=== PATIENT | male | born 1945 | race African-American/Black ===

== ENCOUNTER 2016-12-16 05:52 | Inpatient (IN) ==
[2016-12-16] MEDS ORDERED: ceFAZolin 2,000 MG in PREMIX 1 EACH IV ONE (06:00)
--- NOTE | 2016-12-16 07:08 | History and Physical Update ---
History and Physical Update - History and Physical H&P was reviewed, the patient examined and there: are no changes in the patients condition since last H&P was completed.
--- NOTE | 2016-12-16 07:15 | EKG Report ---
Stationary ECG Study [facility] Test Date: 12/16/2016 7:15:09 AM Pat Name: LJ MATHIAS Department: Room: 607 Gender: M Lemon Picker: AMARILIS : [phone] Requested by: Navid Carroll Order Number: [id number] Reading MD: BENJAMIN MAHAN Intervals [place] Rate: 94 P: 69 ID: [id number] QRS: 66 QRSD: 92 T: 91 QT: 332 QTc: 384 Interpretive Statements SINUS RHYTHM WITH SINUS ARRHYTHMIA DELAYED ANTERIOR R-WAVE PROGRESSION LATERAL T-WAVE ABNORMALITY POSSIBLE ISCHEMIA. Electronically Signed On 12-16-16 12:27:27 CDT by BENJAMIN MAHAN [email or web address]
--- NOTE | 2016-12-16 07:33 | XRay Report ---
XR chest 1V portable Indication: Respiratory preop Comparison: Chest x-ray dated May 07, 2015 Technique: Frontal views of the chest Findings: The cardiomediastinal silhouette is stable in configuration. Chronic change of the lungs without focal consolidation, pleural effusion, or pneumothorax. Visualized osseous and surrounding soft tissue structures appear grossly unchanged. IMPRESSION: No acute cardiopulmonary process demonstrated. PROCEDURE INTERPRETED AT [facility] DEPARTMENT OF RADIOLOGY Final Report Signed by: Dr Issac Hebert
[2016-12-16 07:51] LABS: Basophils % 0.1 % (0.0-0.8); Eosinophils # 0.3 10*3/uL (0.0-0.87); Eosinophils % 1.4 % (0.00-10.9); Hematocrit 22.8 VOL% (42.0-52.0); Hemoglobin 7.2 GM/DL (14.0-18.0); Immature Granulocytes Absolute 0.22 #; Lymphocytes # 1.8 10*3/uL (1.4-4.0); Lymphocytes % 8.6 % (21.2-54.2); Mean Corpuscular HGB Conc 31.6 GM/DL (32-36); Mean Corpuscular Hemoglobin 25 PG (27-34); Mean Corpuscular Volume 78.4 FL (87-102); Monocytes # 0.9 10*3/uL (0.11-0.8); Monocytes % 4.4 % (1.7-12.7); Neutrophils # 17.9 10*3/uL (1.4-7.4); Neutrophils % 84.5 % (38.7-73.9); Platelet Count 671 T/CUMM (130-400); Red Blood Count 2.91 MC/CUMM (3.8-5.5); Red Cell Distribution Width 20.2 % (9.3-17.3); White Blood Count 21.2 T/CUMM (4-12)
[2016-12-16 07:56] LABS: INR 1.1; PT Patient Result 11.4 SECS; Partial Thromboplastin Time 36.8 SECS (0-40)
[2016-12-16] MEDS ORDERED: LACTATED RINGERS 1,000 ML IV SCH (08:00)
[2016-12-16 08:08] LABS: Anisocytosis 1+; Band Neutrophils 3 % (0-10); Hypochromasia 2+; Lymphocytes 9 % (20-55); Microcytosis 1+; Segmented Neutrophils 85 % (50-85); Total Cells Counted 100
[2016-12-16 08:35] LABS: Alanine Aminotransferase < 6 U/L (16-61); Albumin 2.4 G/DL (3.4-5.0); Alkaline Phosphatase 81 U/L (45-117); Aspartate Amino Transferase 30 U/L (0-37); Blood Urea Nitrogen 98 MG/DL (7-18); Calcium 9.7 MG/DL (8.5-10.1); Glucose 87 MG/DL (74-106); Osmolality,Calculated 297.2 MOS/KG (273-304); Sodium 134 MMOL/L (136-145)
[2016-12-16 08:37] LABS: Potassium 6.4 MMOL/L (3.5-5.1)
[2016-12-16] MEDS ORDERED: ACETAMINOPHEN 325 MG TABLET PO PRN (09:33)
[2016-12-16] MEDS ORDERED: ONDANSETRON 4 MG/2 ML VIAL IV PRN (09:33)
[2016-12-16] MEDS ORDERED: SKIN HEALING OINT (AQUAPHOR) 50 GM TUBE TOP PRN (09:42)
[2016-12-16] MEDS ORDERED: CHLORHEXIDINE 4% SOLN 118 ML BOTTLE TOP ONE (09:42)
[2016-12-16] MEDS ORDERED: PIPERACILLIN/TAZOBACTAM 3,375 MG in SODIUM CHLORIDE 0.9% 100 ML IV SCH (10:00)
[2016-12-16] MEDS ORDERED: SODIUM POLYSTYRENE SULFATE 15 GM/60 ML BOTTLE PO SCH (10:00)
--- NOTE | 2016-12-16 11:27 | General Surg History&Physical ---
Assessment and Plan - Time spent with patient Time spent with patient: Greater than 30 minutes (1) Decubitus ulcer of left ischium, stage 4 Status: Acute Assessment and plan: Impression: Left ischial decubitus ulcer plan: Excisional debridement and wound care Current Visit: Yes (2) Decubitus ulcer of sacral region, unstageable Status: Acute Assessment and plan: Impression: Sacral decubitus ulcer unstageable Plan: Surgical debridement and wound care Current Visit: Yes (3) Renal insufficiency syndrome Status: Chronic Assessment and plan: Impression: Renal insufficiency Plan: Nephrology consult for management Current Visit: Yes (4) Hyperkalemia, diminished renal excretion Status: Acute Assessment and plan: Impression: Hyperkalemia probably secondary to renal insufficiency Plan: Nephrology to look and treat Current Visit: Yes (5) Paraplegia Status: Chronic Assessment and plan: Impression: Paraplegia etiology unclear Plan: Management preventive care Current Visit: Yes (6) Anemia Status: Acute Assessment and plan: Impression: Anemia of chronic disease Plan: We will transfuse Current Visit: Yes History of Present Illness Chief complaint: Elevated potassium and creatinine with decubitus ulcers History of present illness: Mr. Artis is a 71 year old male -[place] male who came through same day surgery so we could debride to large necrotic decubitus ulcers one on the left issue him the other one on the sacral area. He was seen for the first time by me in the wound center on Monday with these large ulcers present so I had to set him up for surgery today to try to get these areas cleaned up for better treatment. 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 He apparently underwent some therapy at [facility] and later either been home but has ended up now in a halfway at this time. shelter indicated when they brought him to the wound center that he had these decubitus ulcers when he came to him them. The initial ulcer is extremely necrotic good bit of necrotic tissue and there is some changes on the sacral ulcer in the center that has some necrosis. This area needs to be debrided to get it cleaned up and gets wound care started on it. Unfortunately came through same day surgery and his potassium is above 6 and his creatinine is around 5. The family was aware that he has some renal insufficiency and has been told he might end up on a dialysis machine at some point. Because of these changes anesthesia did not want to do any surgery so would like to go ahead and put him in the hospital so that we can get renal to see him see if we get things in better shape to be on Monday we can do the surgery and get it cleaned up. Home Medications Medication Instructions Recorded Confirmed Type Azithromycin 500 mg PO DIRECTED 12/15/16 12/16/16 History Cholecalciferol (Vitamin D3) 2,000 unit PO DAILY 12/15/16 12/16/16 History [Vitamin D3] Dutasteride [Avodart] 0.5 mg PO DAILY 12/15/16 12/16/16 History Ethambutol HCl [Myambutol] 1,200 mg PO DIRECTED 12/15/16 12/16/16 History Feracon 1 tablet PO BID 12/15/16 12/16/16 History Gabapentin Cap/Tab [Neurontin 300 mg PO DAILY 12/15/16 12/16/16 History Cap/Tab] Isoniazid 900 mg PO DIRECTED 12/15/16 12/16/16 History Metoprolol Succinate Xl [Toprol Xl] 50 mg PO DAILY 12/15/16 12/16/16 History Pyridoxine HCl (Vitamin B6) 25 mg PO DAILY 12/15/16 12/16/16 History [Vitamin B-6] Tamsulosin [Flomax] 0.4 mg PO DAILY 12/15/16 12/16/16 History rifAMPin [Rifampin] 900 mg PO DIRECTED 12/15/16 12/16/16 History Allergies Allergy/AdvReac Type Severity Reaction Status Date / Time No Known Allergies Allergy Unverified 12/16/16 06:27 Medical,Surgical,& Family Hx - Medical History Cardio: History of: Hypertension Psychological: History of: Depression Neurology: No history of: Seizures HEENT: No history of: Dental Problems Comment Only: Ear Problem (HARD OF HEARING) Endocrine: No history of: Diabetes Mellitus (NIDDM) Respiratory: Comment Only: COPD (SMOKER) Renal: History of: Renal Problems Genitourinary: Comment Only: Bladder Problem (INCONTINENT - WEARS ADULT DIAPERS) Gastrointestinal: History of: Hemorrhoids Musculoskeletal: Comment Only: Musculoskeletal Problems (PATIENT IS PARAPLEGIC AFTER CYST DRAINAGE OFF SPINE - MAY 2016) Hematology: No history of: Sickle Cell Disease Other: History of: Skin Problems (BREAKDOWN/ULCERS TO SACRAL AREA) - Surgical History Orthopedic Surgeries: Surgical HX of;: Orthopedic Surgery (LEFT COLLAR BONE - 2010), Spinal Surgery (CYST ON SPINE - DRAINAGE DONE) - Family History Family History: Reports;: Family Diabetes (SIBLINGS) - Social History Smoking Status: Current every day smoker Exam - Constitutional Vitals: Period Temp Pulse Resp BP Sys/[place] Pulse Ox Last 24 Hr 97.9 F 95 20 118/78 General appearance: mild distress - Head Head exam: Present: normal inspection - Eye Eye exam: Present: EOMI - ENT ENT exam: Present: normal exam - Neck Neck exam: Present: normal inspection - Respiratory Respiratory exam: Present: rales, rhonchi - Cardiovascular Cardiovascular exam: Present: RRR - GI/Abdominal GI/Abdominal exam: Present: hypoactive bowel sounds, soft. Absent: tenderness - Extremities Exam Extremities exam: Present: other (Some contracture of the lower extremities with no ulcerations of the feet or heels at this time.) - Back Exam Back exam: Present: other (Sacral area has some superficial skin loss around a central darker necrotic looking area. Left ischial ulcer has a good bit of necrotic tissue around the very center part of it and is fairly deep and large going into or you can feel bone.) - Neurological Exam Neurological exam: Present: altered - Skin Skin exam: Present: normal color, warm, dry 12 point system: reviewed and no additional remarkable complaints except as stated Results - Labs CBC & BMP: 12/16/16 07:38 12/16/16 08:52 Lab Results: I have reviewed the past 24 hour labs
[2016-12-16] MEDS ORDERED: SODIUM CHLORIDE 0.9% 250 ML IV PRN (13:33)
--- NOTE | 2016-12-16 15:01 | Ultrasound Report ---
Renal ultrasound Indication: Renal failure Comparison: 23 March 2012 Findings: Kidneys are normal in size and echogenicity. No hydronephrosis or nephrolithiasis is seen. The right renal length is 8.1 cm. Simple appearing cyst are present left kidney, the larger is 2.5 x 2.4 x 2.3 cm. The next largest measures 1.5 x 1.4 x 1.0 cm. The left renal length is 9.2 cm. No free fluid or other abnormality is seen. Impression: Simple appearing left renal cyst. No other evidence of abnormality demonstrated. Ultrasound images stored and captured. PROCEDURE INTERPRETED AT [facility] DEPARTMENT OF RADIOLOGY Final Report Signed by: Dr. Reuben Jack
--- NOTE | 2016-12-16 15:21 | XRay Report ---
Bone survey Indication: Myeloma, lytic lesions Findings: There is suggestion of a lytic area in the proximal sacrum on the lateral image, poorly defined. No other distinct focal lytic lesions are identified. There is overall decreased osseous mineralization. Impression: Suggestion of a lytic lesion overlying the proximal sacrum on the lateral image, poorly defined. No other distinct lytic lesions are seen. PROCEDURE INTERPRETED AT [facility] DEPARTMENT OF RADIOLOGY Final Report Signed by: Dr. Reuben Jack
[2016-12-16] MEDS ORDERED: SODIUM HYPOCHLORITE 0.25% IRRIG 473 ML BOTTLE TOP SCH (16:15)
[2016-12-16 17:46] LABS: Hepatitis A Ab IgM Quant 0.53 Index; Hepatitis A Ab IgM Result Negative (Negative); Hepatitis B Core IgM Quant 0.14 Index; Hepatitis B Core IgM Result Negative (Negative); Hepatitis B Surface Ag Quant < 0.10 Index; Hepatitis B Surface Ag Result Negative (Negative); Hepatitis C Virus Ab Quant 0.21 Index; Hepatitis C Virus Ab Result Negative (Negative)
[2016-12-16] MEDS: SODIUM CHLORIDE 0.45% 1,000 ML IV SCH (17:56)
[2016-12-16] MEDS: PIPERACILLIN/TAZOBACTAM 2.25 MG in SODIUM CHLORIDE 0.9% 100 ML IV SCH ×2 (17:58→22:28)
[2016-12-16] MEDS: SODIUM ACETATE 100 MEQ in DEXTROSE 5% 1,000 ML IV SCH (19:27)
[2016-12-16] MEDS: ETHAMBUTOL 400 MG TABLET PO SCH (19:27)
[2016-12-16] MEDS: ISONIAZID 300 MG TABLET PO SCH (19:27)
[2016-12-16] MEDS: FERROUS FUMARATE 50 MG TABLET PO SCH (20:08)
[2016-12-16] MEDS: DOCUSATE SODIUM 100 MG CAPSULE PO SCH (20:08)
[2016-12-16] MEDS: SODIUM HYPOCHLORITE 0.25% IRRIG 473 ML BOTTLE TOP SCH (20:45)
--- NOTE | 2016-12-16 21:50 | Nephrology Consult Note ---
History of Present Illness Chief complaint: elevated creatinine, potassium History of present illness: Mr. Artis is a 71 year old male transferred from same day surgery for debridement of decubiti found to have K 6.1, and creatinine of 5.4. Calcium 9.7 corrects to 11 for albumin of 2.4. Anemia. eGFR 13cc/min by CKD-EPI formula, WBC 21k, Hgb 7.2, MCV 78. BSA 2m2, Total protein 8, alb 2.4, total globulin 5.6. From [facility], on four drug TB regimen of ETH/INH/RIF/azithromycin. On vit D, B6. Pt denies ever being told he had problems with his kidneys. Pt is poor historian. Hx obtained from EMR which is limited. Home Medications Medication Instructions Recorded Confirmed Type Azithromycin 500 mg PO MOWEFR 12/15/16 12/16/16 History Cholecalciferol (Vitamin D3) 2,000 unit PO DAILY 12/15/16 12/16/16 History [Vitamin D3] Dutasteride [Avodart] 0.5 mg PO BEDTIME 12/15/16 12/16/16 History Ethambutol HCl [Myambutol] 1,200 mg PO MOWEFR 12/15/16 12/16/16 History Feracon 1 tablet PO BID 12/15/16 12/16/16 History Gabapentin Cap/Tab [Neurontin 300 mg PO BEDTIME 12/15/16 12/16/16 History Cap/Tab] Isoniazid 900 mg PO MOWEFR 12/15/16 12/16/16 History Metoprolol Succinate Xl [Toprol Xl] 50 mg PO BEDTIME 12/15/16 12/16/16 History Pyridoxine HCl (Vitamin B6) 25 mg PO DAILY 12/15/16 12/16/16 History [Vitamin B-6] Tamsulosin [Flomax] 0.4 mg PO DAILY 12/15/16 12/16/16 History rifAMPin [Rifampin] 900 mg PO MOWEFR 12/15/16 12/16/16 History Allergies Allergy/AdvReac Type Severity Reaction Status Date / Time No Known Allergies Allergy Unverified 12/16/16 06:27 Medical,Surgical,& Family Hx - Medical History Cardio: History of: Hypertension Psychological: History of: Depression Neurology: No history of: Seizures HEENT: History of: Ear Problem (HARD OF HEARING) No history of: Dental Problems Endocrine: No history of: Diabetes Mellitus (NIDDM) Rheumatology: History of;: Rheumatoid Arthritis Respiratory: Comment Only: COPD (SMOKER) Renal: History of: Renal Problems (chronic kidney disease) Genitourinary: History of: Recurring Urinary Tract Infections Comment Only: Bladder Problem (INCONTINENT - WEARS ADULT DIAPERS) Gastrointestinal: History of: Hemorrhoids Musculoskeletal: Comment Only: Musculoskeletal Problems (PATIENT IS PARAPLEGIC AFTER CYST DRAINAGE OFF SPINE - MAY 2016) Hematology: No history of: Sickle Cell Disease Other: History of: Skin Problems (BREAKDOWN/ULCERS TO SACRAL AREA) - Surgical History Orthopedic Surgeries: Surgical HX of;: Orthopedic Surgery (LEFT COLLAR BONE - 2009), Spinal Surgery (CYST ON SPINE - DRAINAGE DONE) - Family History Family History: Reports;: Family Diabetes (SIBLINGS) - Social History Smoking Status: Current every day smoker Frequency of Alcohol Use: None Type of Drug Use: None Exam - Vital Signs Vital signs: Period Temp Pulse Resp BP Sys/[place] Pulse Ox Last 24 Hr 97.5 F-98.2 F 89-95 16-20 118-134/69-78 99-100 - General Appearance General appearance: cachectic, chronically ill EENT: ATNC, PERRL, mucous membranes dry, hearing intact, vision intact Neck: no JVD, no thyromegaly Respiratory: no kyphosis, clear Cardiology: no murmurs, no rub, no edema Gastrointestinal: normoactive bowel sounds, no tenderness Integumentary: no rash, warm and dry Neurologic: no focal deficit, no asterixis Musculoskeletal: no deformities, no cyanosis Psychiatric: mood/affect appropriate, cooperative Results - Labs CBC & BMP: 12/16/16 07:38 12/16/16 08:52 Assessment and Plan (1) CKD (chronic kidney disease) stage 5, GFR less than 15 ml/min Problem details: No indication for renal replacement therapy at this time. Status: Acute Current Visit: Yes (2) Paraproteinemia Status: Acute Current Visit: Yes (3) Hypercalcemia Problem details: could be related to paraproteinemia Status: Acute Assessment and plan: stop vit D. Check iPTH. Current Visit: Yes (4) Hyperkalemia, diminished renal excretion Problem details: No indication for aggressive therapy. Status: Acute Assessment and plan: Correct metabolic acidosis, shift K+ back intracellularly. Current Visit: Yes (5) Anemia Problem details: could be related to CKD or paraproteinemia Status: Acute Assessment and plan: SPEP/UPEP/serum free light chains, skeletal survey. Current Visit: Yes
[2016-12-16] MEDS: HYDROmorphone 2 MG/1 ML VIAL IV PRN (23:32)
[2016-12-17] MEDS: ENOXAPARIN 30 MG/0.3 ML SYRINGE SUBCUT SCH (04:25)
[2016-12-17] MEDS: SODIUM ACETATE 100 MEQ in DEXTROSE 5% 1,000 ML IV SCH (04:25)
[2016-12-17] MEDS: PIPERACILLIN/TAZOBACTAM 2.25 MG in SODIUM CHLORIDE 0.9% 100 ML IV SCH ×3 (06:11→22:45)
[2016-12-17 07:37] LABS: Calcium 8.9 MG/DL (8.5-10.1)
[2016-12-17 07:38] LABS: % Iron Saturation 28.8 % (18-50)
[2016-12-17 07:41] LABS: Potassium 6.2 MMOL/L (3.5-5.1)
[2016-12-17 08:03] LABS: Basophils % 0.1 % (0.0-0.8); Eosinophils # 0.3 10*3/uL (0.0-0.87); Eosinophils % 1.9 % (0.00-10.9); Immature Granulocytes % 0.8 %; Immature Granulocytes Absolute 0.12 #; Lymphocytes # 1.6 10*3/uL (1.4-4.0); Lymphocytes % 11.2 % (21.2-54.2); Mean Corpuscular HGB Conc 31.7 GM/DL (32-36); Mean Corpuscular Hemoglobin 25 PG (27-34); Mean Corpuscular Volume 77.6 FL (87-102); Mean Platelet Volume 10.3 FL (9.6-12.0); Monocytes # 0.7 10*3/uL (0.11-0.8); Monocytes % 5.1 % (1.7-12.7); Neutrophils # 11.4 10*3/uL (1.4-7.4); Neutrophils % 80.9 % (38.7-73.9); Platelet Count 568 T/CUMM (130-400); Red Blood Count 2.32 MC/CUMM (3.8-5.5); White Blood Count 14.1 T/CUMM (4-12)
[2016-12-17 08:06] LABS: Hemoglobin 5.7 GM/DL (14.0-18.0)
[2016-12-17] MEDS ORDERED: SODIUM HYPOCHLORITE 0.25% IRRIG 473 ML BOTTLE TOP SCH (09:00)
[2016-12-17] MEDS ORDERED: NON-FORMULARY MEDICATION (Cholecalciferol (Vitamin D3) [Vitamin D3] 2,000 UNIT) PO SCH (09:00)
[2016-12-17] MEDS ORDERED: SODIUM CHLORIDE 0.9% 250 ML IV PRN (09:06)
[2016-12-17] MEDS: DUTASTERIDE 0.5 MG CAPSULE PO SCH (09:18)
[2016-12-17] MEDS: TAMSULOSIN 0.4 MG CAPSULE PO SCH (09:18)
[2016-12-17] MEDS: DOCUSATE SODIUM 100 MG CAPSULE PO SCH ×2 (09:18→22:02)
[2016-12-17] MEDS: METOPROLOL SUCCINATE XL 50 MG TABLET PO SCH (09:18)
[2016-12-17] MEDS: PYRIDOXINE 50 MG TABLET PO SCH (09:18)
[2016-12-17] MEDS: PANTOPRAZOLE 40 MG TABLET PO SCH (09:18)
[2016-12-17] MEDS: GABAPENTIN 300 MG CAPSULE PO SCH (09:19)
[2016-12-17] MEDS: FERROUS FUMARATE 50 MG TABLET PO SCH ×2 (09:19→22:02)
[2016-12-17] MEDS: SODIUM CHLORIDE 0.45% 1,000 ML IV SCH (09:20)
[2016-12-17] MEDS: SODIUM HYPOCHLORITE 0.25% IRRIG 473 ML BOTTLE TOP SCH (10:30)
[2016-12-17] MEDS: SODIUM POLYSTYRENE SULFATE 15 GM/60 ML BOTTLE PO SCH ×2 (10:48→18:45)
--- NOTE | 2016-12-17 10:55 | General Surgery Progress Note ---
Assessment and Plan (1) Decubitus ulcer of left ischium, stage 4 Status: Acute Assessment and plan: 71-year-old -Luxembourger male with history of paraplegia and multiple pressure wounds brought through same day surgery for debridement by Dr. Carroll and was found to be in acute renal failure with hyperkalemia. Nephrology has been consulted and patient is to receive blood today due to low H&H. Patient's wounds are stable, afebrile vital signs stable, WBCs down to 14.1, H&H down to 5.7/18, potassium up to 6.2, creatinine 4.9. Patient undergoing medical stabilization by nephrology for hopeful debridement by Dr. Carroll on Monday. Dr. Rodriguez has seen and examined patient for Dr. Carroll today. Current Visit: Yes (2) Decubitus ulcer of sacral region, unstageable Status: Acute Current Visit: Yes (3) Renal insufficiency syndrome Status: Chronic Current Visit: Yes (4) Hyperkalemia, diminished renal excretion Problem details: No indication for aggressive therapy. 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
[2016-12-17 11:47] LABS: Hypochromasia 2+; Microcytosis 2+; Target Cells Slight
--- NOTE | 2016-12-17 12:07 | Nephrology Progress Note ---
Nephrology - PN: Subj Interval history: Mr Artis was asleep on am rounds. Denies SOB/pain. Given bicarb containing fluids overnight, serum CO2 17->19, K still 6.2. Skeletal survey with lytic lesion of sacrum. SPEP/UPEP/free light chains pending. Hgb dropped. Being transfused. On three drug regimen for TB (ETH/INH/RIF). CXR no acute cardiopulmonary process. Unsure what stage of therapy he is in or his diagnosis. Usually 4 drug regimen including PZA is used for initial intensive phase of therapy unless hx of gout or liver dz for two months. Exam (PN)-Nephrology - Vital Signs Vital signs: Period Temp Pulse Resp BP Sys/[place] Pulse Ox Last 24 Hr 97.1 F-98.3 F 83-97 16-20 105-137/57-85 95-100 - General Appearance General appearance: cachectic, chronically ill EENT: ATNC, PERRL Neck: no JVD, no carotid bruit Respiratory: no kyphosis, clear Cardiology: no murmurs, no rub Gastrointestinal: normoactive bowel sounds, no tenderness Integumentary: no rash, warm and dry Neurologic: no focal deficit, no asterixis Musculoskeletal: no deformities, no erythema Psychiatric: mood/affect appropriate, cooperative - Lab 12/17/16 06:06 12/17/16 06:06 Most recent lab results Calcium 8.9 MG/DL (8.5-10.1) 12/17/16 06:06 Assessment and Plan (1) CKD (chronic kidney disease) stage 5, GFR less than 15 ml/min Problem details: No indication for renal replacement therapy at this time. Status: Acute Current Visit: Yes (2) Paraproteinemia Status: Acute Current Visit: Yes (3) Hypercalcemia Problem details: could be related to paraproteinemia Status: Acute Assessment and plan: stop vit D. Check iPTH. Current Visit: Yes (4) Hyperkalemia, diminished renal excretion Problem details: Not improved with bicarb. Status: Acute Assessment and plan: Increased bicarb gtt. Kayexalate 30gms po q8h x 3 doses. Current Visit: Yes (5) Anemia Problem details: could be related to CKD or paraproteinemia Status: Acute Assessment and plan: SPEP/UPEP/serum free light chains pending, skeletal survey with possible lytic lesion of sacrum. Transfuse today. Current Visit: Yes
[2016-12-17 12:57] LABS: Parathyroid Hormone Intact 33.7 PG/ML (14-72)
[2016-12-17] MEDS: SODIUM ACETATE 150 MEQ in DEXTROSE 5% 1,000 ML IV SCH (15:54)
[2016-12-17 19:05] LABS: Hematocrit 25.5 VOL% (42.0-52.0)
[2016-12-18] MEDS: SODIUM POLYSTYRENE SULFATE 15 GM/60 ML BOTTLE PO SCH (02:26)
[2016-12-18] MEDS: ENOXAPARIN 30 MG/0.3 ML SYRINGE SUBCUT SCH (02:37)
[2016-12-18] MEDS: SODIUM ACETATE 150 MEQ in DEXTROSE 5% 1,000 ML IV SCH ×3 (02:38→20:06)
[2016-12-18 05:12] LABS: Basophils # 0.1 10*3/uL (0.0-0.2); Basophils % 0.4 % (0.0-0.8); Eosinophils # 0.2 10*3/uL (0.0-0.87); Eosinophils % 1.5 % (0.00-10.9); Hematocrit 25.8 VOL% (42.0-52.0); Hemoglobin 8.3 GM/DL (14.0-18.0); Immature Granulocytes % 0.6 %; Immature Granulocytes Absolute 0.09 #; Lymphocytes # 1.5 10*3/uL (1.4-4.0); Lymphocytes % 10.3 % (21.2-54.2); Mean Corpuscular HGB Conc 32.2 GM/DL (32-36); Mean Corpuscular Hemoglobin 25 PG (27-34); Mean Corpuscular Volume 78.4 FL (87-102); Mean Platelet Volume 9.8 FL (9.6-12.0); Monocytes # 0.7 10*3/uL (0.11-0.8); Monocytes % 5.2 % (1.7-12.7); Neutrophils # 11.6 10*3/uL (1.4-7.4); Platelet Count 535 T/CUMM (130-400); Red Blood Count 3.29 MC/CUMM (3.8-5.5); Red Cell Distribution Width 19.1 % (9.3-17.3); White Blood Count 14.2 T/CUMM (4-12)
[2016-12-18 05:43] LABS: Calcium 8.7 MG/DL (8.5-10.1); Osmolality,Calculated 296.7 MOS/KG (273-304); Potassium 4.9 MMOL/L (3.5-5.1)
[2016-12-18] MEDS: PIPERACILLIN/TAZOBACTAM 2.25 MG in SODIUM CHLORIDE 0.9% 100 ML IV SCH ×2 (06:12→14:30)
[2016-12-18] MEDS: METOPROLOL SUCCINATE XL 50 MG TABLET PO SCH (09:06)
[2016-12-18] MEDS: DUTASTERIDE 0.5 MG CAPSULE PO SCH (09:06)
[2016-12-18] MEDS: TAMSULOSIN 0.4 MG CAPSULE PO SCH (09:06)
[2016-12-18] MEDS: PANTOPRAZOLE 40 MG TABLET PO SCH (09:07)
[2016-12-18] MEDS: FERROUS FUMARATE 50 MG TABLET PO SCH ×2 (09:07→20:06)
[2016-12-18] MEDS: DOCUSATE SODIUM 100 MG CAPSULE PO SCH ×2 (09:07→20:06)
[2016-12-18] MEDS: GABAPENTIN 300 MG CAPSULE PO SCH (09:07)
[2016-12-18] MEDS: PYRIDOXINE 50 MG TABLET PO SCH (09:08)
--- NOTE | 2016-12-18 10:58 | General Surgery Progress Note ---
Assessment and Plan (1) Decubitus ulcer of sacral region, unstageable Status: Acute Assessment and plan: No change in ulcers. Need debridement. Possibly tomorrow if okay medically. Current Visit: Yes Subjective Patient reports: Present: no new complaints Exam - Constitutional Vitals: Period Temp Pulse Resp BP Sys/[place] Pulse Ox Last 24 Hr 97.0 F-98.0 F 73-90 16-20 86-145/53-90 94-100 General appearance: no acute distress - Extremities Exam Extremities exam: Present: other (Wounds unchanged. Still with some foul- smelling drainage and necrotic tissue.) Results - Labs CBC & BMP: 12/18/16 04:56 12/18/16 04:56 Lab Results: I have reviewed the past 24 hour labs
[2016-12-18] MEDS: SODIUM CHLORIDE 0.45% 1,000 ML IV SCH (11:21)
--- NOTE | 2016-12-18 12:24 | Nephrology Progress Note ---
Nephrology - PN: Subj Interval history: Pt more alert today, s/p transfusion 2u pRBCs. Denies SOB/pain. K corrected with kayexalate. Exam (PN)-Nephrology - Vital Signs Vital signs: Period Temp Pulse Resp BP Sys/[place] Pulse Ox Last 24 Hr 97.0 F-98.0 F 73-90 16-20 86-145/53-90 94-100 - General Appearance General appearance: cachectic, chronically ill EENT: ATNC, PERRL Neck: no JVD, no thyromegaly Respiratory: no kyphosis, clear Cardiology: no murmurs, no rub Gastrointestinal: normoactive bowel sounds, no tenderness Integumentary: no rash, warm and dry Neurologic: no focal deficit, no asterixis, disoriented Musculoskeletal: no deformities, no erythema Psychiatric: mood/affect appropriate, cooperative - Lab 12/18/16 04:56 12/18/16 04:56 Most recent lab results Calcium 8.7 MG/DL (8.5-10.1) 12/18/16 04:56 Assessment and Plan (1) CKD (chronic kidney disease) stage 5, GFR less than 15 ml/min Problem details: No indication for renal replacement therapy at this time. Status: Acute Current Visit: Yes (2) Paraproteinemia Status: Acute Current Visit: Yes (3) Hypercalcemia Problem details: could be related to paraproteinemia Status: Resolved Assessment and plan: stopped vit D. Check iPTH. Current Visit: Yes (4) Hyperkalemia, diminished renal excretion Problem details: Normalized. Status: Resolved Current Visit: Yes (5) Anemia Problem details: could be related to CKD or paraproteinemia Status: Acute Assessment and plan: SPEP/UPEP/serum free light chains pending, skeletal survey with possible lytic lesion of sacrum. Current Visit: Yes
[2016-12-18] MEDS: SODIUM HYPOCHLORITE 0.25% IRRIG 473 ML BOTTLE TOP SCH (14:05)
[2016-12-18] MEDS: HYDROmorphone 2 MG/1 ML VIAL IV PRN (15:47)
[2016-12-18] MEDS: PIPERACILLIN/TAZOBACTAM 2,250 MG in SODIUM CHLORIDE 0.9% 100 ML IV SCH ×2 (17:19→23:44)
[2016-12-19] MEDS: ENOXAPARIN 30 MG/0.3 ML SYRINGE SUBCUT SCH (03:10)
[2016-12-19] MEDS: SODIUM ACETATE 150 MEQ in DEXTROSE 5% 1,000 ML IV SCH ×3 (03:48→23:35)
[2016-12-19] MEDS: HYDROmorphone 2 MG/1 ML VIAL IV PRN ×2 (04:57→13:50)
[2016-12-19 05:50] LABS: Basophils # 0.1 10*3/uL (0.0-0.2); Basophils % 0.5 % (0.0-0.8); Eosinophils # 0.2 10*3/uL (0.0-0.87); Eosinophils % 1.5 % (0.00-10.9); Hematocrit 25.1 VOL% (42.0-52.0); Hemoglobin 8.2 GM/DL (14.0-18.0); Immature Granulocytes % 0.7 %; Immature Granulocytes Absolute 0.08 #; Lymphocytes # 1.3 10*3/uL (1.4-4.0); Lymphocytes % 11.9 % (21.2-54.2); Mean Corpuscular HGB Conc 32.7 GM/DL (32-36); Mean Corpuscular Hemoglobin 25 PG (27-34); Mean Corpuscular Volume 77.5 FL (87-102); Mean Platelet Volume 9.9 FL (9.6-12.0); Monocytes # 0.5 10*3/uL (0.11-0.8); Monocytes % 4.7 % (1.7-12.7); Neutrophils % 80.7 % (38.7-73.9); Platelet Count 509 T/CUMM (130-400); Red Blood Count 3.24 MC/CUMM (3.8-5.5); Red Cell Distribution Width 19.1 % (9.3-17.3); White Blood Count 11.1 T/CUMM (4-12)
[2016-12-19 06:16] LABS: Calcium 8.4 MG/DL (8.5-10.1); Osmolality,Calculated 290.7 MOS/KG (273-304); Potassium 3.9 MMOL/L (3.5-5.1)
[2016-12-19 06:20] LABS: Eosinophils 1 % (0-10); Hypochromasia 1+; Lymphocytes 12 % (20-55); Platelet Estimate Increased; Segmented Neutrophils 84 % (50-85); Total Cells Counted 100
[2016-12-19 06:21] LABS: Giant Platelets Few; Microcytosis Slight
--- NOTE | 2016-12-19 08:01 | General Surgery Progress Note ---
Assessment and Plan - Time spent with patient Time spent with patient: Less than 30 minutes (1) Decubitus ulcer of left ischium, stage 4 Status: Acute Assessment and plan: Impression: Left ischial decubitus ulcer plan: Excisional debridement and wound care 12/19/2016. Ulcer remains necrotic but fairly clean but there is still an odor associated with it and debridement is required. Current Visit: Yes (2) Decubitus ulcer of sacral region, unstageable Status: Acute Assessment and plan: Impression: Sacral decubitus ulcer unstageable Plan: Surgical debridement and wound care 12/19/2016. Sacral ulcer is stable and clean some debridements can be required this also. Current Visit: Yes (3) Renal insufficiency syndrome Status: Chronic Assessment and plan: Impression: Renal insufficiency Plan: Nephrology consult for management 12/19/2016. Renal insufficiency remains stable at this time with a creatinine of 4.1 nephrology is following him at this point. Current Visit: Yes (4) Hyperkalemia, diminished renal excretion Problem details: Normalized. Status: Resolved Assessment and plan: Impression: Hyperkalemia probably secondary to renal insufficiency Plan: Nephrology to look and treat 12/19/2016. Potassium is down at this time around 3.8 and seems to be under control at this point. Current Visit: Yes (5) Paraplegia Status: Chronic Assessment and plan: Impression: Paraplegia etiology unclear Plan: Management preventive care Current Visit: Yes (6) Anemia Problem details: could be related to CKD or paraproteinemia Status: Acute Assessment and plan: Impression: Anemia of chronic disease Plan: We will transfuse 12/19/2016. Anemia persists at this time hematocrits 26 but he seems to be fairly stable at this point. Still not sure the etiology of this and renal is working him up at this time. Current Visit: Yes Subjective Patient reports: Present: no new complaints, afebrile, other Exam - Constitutional Vitals: Period Temp Pulse Resp BP Sys/[place] Pulse Ox Last 24 Hr 97.5 F-98.3 F 71-92 16-20 84-152/46-92 94-100 General appearance: other (Patient remains contracted and the ulcer remains necrotic and needs debridement) - Head Head exam: Present: normal inspection - ENT ENT exam: Present: normal exam - Neck Neck exam: Present: normal inspection - Respiratory Respiratory exam: Present: rales - Cardiovascular Cardiovascular exam: Present: RRR - GI/Abdominal GI/Abdominal exam: Present: hypoactive bowel sounds, soft. Absent: tenderness - Extremities Exam Extremities exam: Present: other (No lesions of the foot or knees or legs) - Back Exam Back exam: Present: other (Left ischial ulcer still with a large amount necrotic tissue present. Sacral ulcer is stable with some necrotic tissue there ) - Neurological Exam Neurological exam: Present: altered - Skin Skin exam: Present: normal color, warm, dry Results - Labs CBC & BMP: 12/19/16 05:00 12/19/16 05:00 Lab Results: I have reviewed the past 24 hour labs
[2016-12-19] MEDS ORDERED: ceFAZolin 2,000 MG in PREMIX 1 EACH IV ONE (08:04)
[2016-12-19] MEDS: PYRIDOXINE 50 MG TABLET PO SCH (09:00)
[2016-12-19] MEDS: GABAPENTIN 300 MG CAPSULE PO SCH (09:00)
[2016-12-19] MEDS: DUTASTERIDE 0.5 MG CAPSULE PO SCH (09:00)
[2016-12-19] MEDS: ETHAMBUTOL 400 MG TABLET PO SCH (09:00)
[2016-12-19] MEDS: FERROUS FUMARATE 50 MG TABLET PO SCH ×2 (09:00→21:43)
[2016-12-19] MEDS: PANTOPRAZOLE 40 MG TABLET PO SCH (09:00)
[2016-12-19] MEDS: ISONIAZID 300 MG TABLET PO SCH (09:00)
[2016-12-19] MEDS: DOCUSATE SODIUM 100 MG CAPSULE PO SCH ×2 (09:00→21:40)
[2016-12-19] MEDS: SODIUM HYPOCHLORITE 0.25% IRRIG 473 ML BOTTLE TOP SCH (09:00)
[2016-12-19] MEDS: TAMSULOSIN 0.4 MG CAPSULE PO SCH (09:00)
[2016-12-19 09:07] LABS: Albumin (SPE) 3.2 G/DL (3.2-5.3); Albumin (SPE) Rel % 40.7 %; Alpha 1 (SPE) 0.5 G/DL (0.1-0.4); Alpha 1 (SPE) Rel % 6.5 %; Alpha 2 (SPE) 1.2 G/DL (0.4-1.0); Alpha 2 (SPE) Rel % 14.9 %; Beta (SPE) 0.9 G/DL (0.5-1.1); Beta (SPE) Rel % 11.6 %; Gamma (SPE) 2.1 G/DL (0.7-1.7); Gamma (SPE) Rel % 26.3 %; Total Protein (Chem) 7.9 G/DL (6.4-8.3)
[2016-12-19 09:07] LABS: INR 1.1; PT Patient Result 11.5 SECS; Partial Thromboplastin Time 33.2 SECS (0-40)
[2016-12-19 09:15] LABS: Albumin (UPER) 37.3 MG/DL; Alpha 1 (UPER) 22.2 MG/DL; Alpha 1 (UPER) Rel% 21.6 %; Alpha 2 (UPER) 11.3 MG/DL; Beta (UPER) 11.9 MG/DL; Beta (UPER) Rel % 11.5 %; Gamma (UPER) 20.3 MG/DL; Random Urine Protein (Bench) 103 MG/DL (<11.9)
[2016-12-19 09:16] LABS: Gamma (UPER) Rel % 19.7 %
[2016-12-19 09:18] LABS: Albumin (UPER) Rel% 36.2 %
[2016-12-19] MEDS: PIPERACILLIN/TAZOBACTAM 2,250 MG in SODIUM CHLORIDE 0.9% 100 ML IV SCH ×2 (09:44→16:00)
[2016-12-19] MEDS: METOPROLOL SUCCINATE XL 50 MG TABLET PO SCH (09:47)
[2016-12-19] MEDS ORDERED: BUPIVACAINE 0.25% /EPI 10 ML VIAL ONE (15:03)
[2016-12-19] MEDS ORDERED: LIDOCAINE 1%/EPI INJ 20 ML VIAL ONE (15:03)
--- NOTE | 2016-12-19 17:01 | Operative Note ---
Date of procedure: 12/19/16 Pre-op diagnosis: Left ischial and sacral decubitus ulcer Post-op diagnosis: other (Left ischial ulcer stage IV. Sacral decubitus ulcer stage IV) Procedure: Operative note: Preoperative diagnosis: 1. Left ischial decubitus ulcer unstageable 2. Sacral decubitus ulcer unstageable Postoperative diagnosis: 1. Left ischial decubitus ulcer stage IV 2. Sacral decubitus ulcer stage IV Procedure: 1. Excisional debridement of skin necrotic fat fascia and muscle of the left ischial decubitus ulcer 2. Excisional debridement of skin necrotic fatty tissue fascia and muscle of the sacral decubitus ulcer Surgeon Dr. Carroll Employment Office Clerk Carli Carrillo, [facility] ACNP Anesthesia was managed anesthetic care with local Brief history: 71-year-old -[place] male who is become pretty much bedridden at this time and etiology of his illness is unclear at this point. But since he has been pretty much bedridden he has been at several facilities and comes in to us with a large issue decubitus ulcer with a large amount necrotic tissue and purulent drainage present. He also has a sacral decubitus ulcer of the scalp and unstageable situation with a necrotic surface but cannot it was going on underneath. We put him in for surgery but he is potassium was too high creatinine was elevated and so he was admitted and nephrology has been following him at this time now with his potassium is better we would like to bring him passively get this debrided see if this improves his general status. Procedure: With patient in the right decubitus position prepped and draped in sterile fashion timeout and antibiotics completed approaches area of the ulcer on the left issue decubitus area. It is a large amount of necrotic tissue all way around it with necrotic tissue coming out of the opening and some purulent drainage present. Pre-debridement of the initial ulcer is 8 x 7 cm. I took a knife and initially went around the edge of the necrotic tissue as I went down into the necrotic skin and when we encountered necrotic fatty tissue with a large amount of purulent drainage. I cultured the drainage and then I excised the necrotic skin and subtenons tissue. Once I had completely removed that tissue there was deeper necrotic tissue present down in this area with some necrotic muscle present. I took the electrocautery and I removed this deep tissue from the fascia without exposing the bone at this time. I then excised more necrotic tissue and necrotic fatty tissue and some necrotic muscle extending superiorly up towards the back. I debrided a great deal of tissue down to what looks to clean tissue at this time. I then used electrocauterization control any bleeding at this time to get it under his good control as I could possibly get it. When we finished we now have an ulcer that is 11 x 9 x 5 cm in size. We next moved to the sacral ulcer. The sacral ulcer has a discolored area about it with a central necrotic area in this wound. I measured the central necrotic area pre-debridement which is 7 x 3 cm. At that point I took a knife and we excise this necrotic center portion and then had to extended by using electrocautery did debride additional necrotic skin and fatty tissue and subcutaneous tissue as well as fascia over the top of the sacrum. We debrided a good bit of this a little muscle off to the side until it was fairly clean. There may be more at the edges but this looked like we had it as clean as we possibly get it. I use light cauterization control of bleeding. We now have an ulcer on the sacrum that is 9 x 5 x 1 cm in size. With all the debridement completed then we washed irrigated out with saline solution packed it with Dakin's wet fluffs and ABDs at this time. Bulky dressings were applied patient to recovery room. Estimated blood loss 30-40 cc Sponge count correct 2 Drains none Complications none Condition stable satisfactory Anesthesia: MAC, local (0.25% Marcaine with epinephrine mixed [id number] 1% Xylocaine plain) Surgeon / Physician: Navid Carroll Employment Office Clerk: Carli Carrillo Estimated blood loss: other (30 cc) Specimens: other (Tissue to pathology and cultures) Condition: stable Disposition: floor Results - Labs CBC & BMP: 12/19/16 05:00 12/19/16 05:00 Discharge Plan - Discharge Medications No Action Ethambutol HCl [Myambutol] 1,200 mg PO MOWEFR Pyridoxine HCl (Vitamin B6) [Vitamin B-6] 25 mg PO DAILY Isoniazid 900 mg PO MOWEFR Cholecalciferol (Vitamin D3) [Vitamin D3] 2,000 unit PO DAILY Azithromycin 500 mg PO MOWEFR Tamsulosin [Flomax] 0.4 mg PO DAILY Metoprolol Succinate Xl [Toprol Xl] 50 mg PO BEDTIME rifAMPin [Rifampin] 900 mg PO MOWEFR Dutasteride [Avodart] 0.5 mg PO BEDTIME Gabapentin Cap/Tab [Neurontin Cap/Tab] 300 mg PO BEDTIME Feracon 1 tablet PO BID - Follow Up or Referral - Forms/Instructions
--- NOTE | 2016-12-19 17:10 | Anesthesia Post-Op ---
Anesthesia Post OP - Post Ansesthetic Evaluation Patient seen in post op: Yes Resp: within normal limits CV: within normal limits Mental: within normal limits Temp: within normal limits [id number]: within normal limits Nausea and Vomiting: within normal limits Pain: within normal limits
[2016-12-19] MEDS ORDERED: fentaNYL 100 MCG/2 ML VIAL ONE (17:15)
[2016-12-19] MEDS ORDERED: PROPOFOL 200 MG/20 ML VIAL IV ONE (17:15)
[2016-12-19] MEDS ORDERED: ONDANSETRON 4 MG/2 ML VIAL ONE (17:16)
[2016-12-19] MEDS ORDERED: MIDAZOLAM 2 MG/2 ML VIAL ONE (17:16)
[2016-12-19 17:19] LABS: Hematocrit 25.7 VOL% (42.0-52.0); Hemoglobin 8.4 GM/DL (14.0-18.0)
--- NOTE | 2016-12-19 19:59 | Nephrology Progress Note ---
Nephrology - PN: Subj Interval history: Patient is resting. He is status post wound debridement today. Serum creatinine is noted to be 4.1. Exam (PN)-Nephrology - Vital Signs Vital signs: Period Temp Pulse Resp BP Sys/[place] Pulse Ox Last 24 Hr 97.2 F-99.6 F 81-103 16-18 93-149/69-96 94-100 - General Appearance General appearance: well-developed Respiratory: clear Cardiology: regular rate, regular rhythm Gastrointestinal: normoactive bowel sounds, no tenderness Integumentary: warm and dry - Lab 12/19/16 17:13 12/19/16 05:00 Most recent lab results Calcium 8.4 MG/DL (8.5-10.1) L 12/19/16 05:00 Assessment and Plan (1) Decubitus ulcer of left ischium, stage 4 Status: Acute Current Visit: Yes (2) Paraplegia Status: Chronic Current Visit: Yes (3) CKD (chronic kidney disease) stage 5, GFR less than 15 ml/min Problem details: No indication for renal replacement therapy at this time. Status: Chronic Current Visit: Yes
[2016-12-19] MEDS: ceFAZolin 2,000 MG in PREMIX 1 EACH IV SCH (23:19)
[2016-12-20] MEDS: PIPERACILLIN/TAZOBACTAM 2,250 MG in SODIUM CHLORIDE 0.9% 100 ML IV SCH ×3 (02:48→16:25)
[2016-12-20 05:50] LABS: Basophils % 0.3 % (0.0-0.8); Eosinophils # 0.2 10*3/uL (0.0-0.87); Eosinophils % 1.3 % (0.00-10.9); Hematocrit 25.4 VOL% (42.0-52.0); Hemoglobin 8.1 GM/DL (14.0-18.0); Immature Granulocytes % 0.8 %; Lymphocytes # 1.5 10*3/uL (1.4-4.0); Lymphocytes % 12.8 % (21.2-54.2); Mean Corpuscular HGB Conc 31.9 GM/DL (32-36); Mean Corpuscular Hemoglobin 25 PG (27-34); Mean Corpuscular Volume 78.9 FL (87-102); Mean Platelet Volume 9.6 FL (9.6-12.0); Monocytes # 0.9 10*3/uL (0.11-0.8); Monocytes % 7.8 % (1.7-12.7); Neutrophils # 9.2 10*3/uL (1.4-7.4); Platelet Count 511 T/CUMM (130-400); Red Blood Count 3.22 MC/CUMM (3.8-5.5)
[2016-12-20 06:20] LABS: Calcium 8.8 MG/DL (8.5-10.1); Osmolality,Calculated 284.8 MOS/KG (273-304); Potassium 3.8 MMOL/L (3.5-5.1)
[2016-12-20] MEDS: ceFAZolin 2,000 MG in PREMIX 1 EACH IV SCH (06:34)
[2016-12-20] MEDS: HYDROmorphone 2 MG/1 ML VIAL IV PRN ×2 (06:36→13:34)
[2016-12-20 06:45] LABS: Immuno Free Light Chain Kappa 38.38 MG/DL (0.33-1.94); Immuno Free Light Chain Lambda 22.45 MG/DL (0.57-2.63); Immuno Free Light Chain Ratio 1.71 MG/DL (0.26-1.65)
--- NOTE | 2016-12-20 08:09 | General Surgery Progress Note ---
Assessment and Plan - Time spent with patient Time spent with patient: Less than 30 minutes (1) Decubitus ulcer of left ischium, stage 4 Status: Acute Assessment and plan: Impression: Left ischial decubitus ulcer plan: Excisional debridement and wound care 12/19/2016. Ulcer remains necrotic but fairly clean but there is still an odor associated with it and debridement is required. 12/20/2016. Ulcer has been debrided and now is starting wound care on a very large deep ulcer at this time. Cultures are pending from this wound. Because of its location I have spoken to at least one family member about the possible need for a colostomy on this individual to see exactly what might be diverted so that we can get the best chance for healing. Current Visit: Yes (2) Decubitus ulcer of sacral region, unstageable Status: Acute Assessment and plan: Impression: Sacral decubitus ulcer unstageable Plan: Surgical debridement and wound care 12/19/2016. Sacral ulcer is stable and clean some debridements can be required this also. 12/20/2016. Sacral ulcer has been debrided and it is stage IV now also. Starting wound care to this also. Current Visit: Yes (3) Renal insufficiency syndrome Status: Chronic Assessment and plan: Impression: Renal insufficiency Plan: Nephrology consult for management 12/19/2016. Renal insufficiency remains stable at this time with a creatinine of 4.1 nephrology is following him at this point. Current Visit: Yes (4) Hyperkalemia, diminished renal excretion Problem details: Normalized. Status: Resolved Assessment and plan: Impression: Hyperkalemia probably secondary to renal insufficiency Plan: Nephrology to look and treat 12/19/2016. Potassium is down at this time around 3.8 and seems to be under control at this point. Current Visit: Yes (5) Paraplegia Status: Chronic Assessment and plan: Impression: Paraplegia etiology unclear Plan: Management preventive care Current Visit: Yes (6) Anemia Problem details: could be related to CKD or paraproteinemia Status: Acute Assessment and plan: Impression: Anemia of chronic disease Plan: We will transfuse 12/19/2016. Anemia persists at this time hematocrits 26 but he seems to be fairly stable at this point. Still not sure the etiology of this and renal is working him up at this time. Current Visit: Yes Subjective Patient reports: Present: no new complaints, tolerating a regular diet, afebrile Exam - Constitutional Vitals: Period Temp Pulse Resp BP Sys/[place] Pulse Ox Last 24 Hr 97.2 F-99.6 F 82-103 16-20 93-161/68-96 93-100 General appearance: mild distress - Head Head exam: Present: normal inspection - Neck Neck exam: Present: normal inspection - Respiratory Respiratory exam: Present: rales, rhonchi - Cardiovascular Cardiovascular exam: Present: RRR - GI/Abdominal GI/Abdominal exam: Present: hypoactive bowel sounds, soft - Anus/Rectum Anus/Rectum: other (Wound care beginning on the ischial and sacral ulcer) - Extremities Exam Extremities exam: Present: normal inspection - Back Exam Back exam: Present: normal inspection - Neurological Exam Neurological exam: Present: alert, oriented X3, CN II-XII intact - Skin Skin exam: Present: normal color, warm, dry Results - Labs CBC & BMP: 12/20/16 05:18 12/20/16 05:18 Lab Results: I have reviewed the past 24 hour labs Quality Measures - VTE Contraindication to Pharmacological VTE Prophylaxis: High Risk of Bleeding
[2016-12-20] MEDS: DUTASTERIDE 0.5 MG CAPSULE PO SCH (09:56)
[2016-12-20] MEDS: PANTOPRAZOLE 40 MG TABLET PO SCH (09:57)
[2016-12-20] MEDS: GABAPENTIN 300 MG CAPSULE PO SCH (09:57)
[2016-12-20] MEDS: TAMSULOSIN 0.4 MG CAPSULE PO SCH (09:57)
[2016-12-20] MEDS: DOCUSATE SODIUM 100 MG CAPSULE PO SCH ×2 (09:57→21:03)
[2016-12-20] MEDS: METOPROLOL SUCCINATE XL 50 MG TABLET PO SCH (09:58)
[2016-12-20] MEDS: PYRIDOXINE 50 MG TABLET PO SCH (09:58)
[2016-12-20] MEDS: FERROUS FUMARATE 50 MG TABLET PO SCH (10:08)
[2016-12-20] MEDS: SODIUM ACETATE 150 MEQ in DEXTROSE 5% 1,000 ML IV SCH (16:24)
[2016-12-20] MEDS: SODIUM HYPOCHLORITE 0.25% IRRIG 473 ML BOTTLE TOP SCH (16:45)
[2016-12-20] MEDS: MULTIVITAMIN (INTRINSIC) CAPSULE PO SCH (21:03)
--- NOTE | 2016-12-20 21:21 | Nephrology Progress Note ---
Nephrology - PN: Subj Interval history: Patient is resting comfortably. Serum creatinine stable at 4.1. No other acute changes. Exam (PN)-Nephrology - Vital Signs Vital signs: Period Temp Pulse Resp BP Sys/[place] Pulse Ox Last 24 Hr 97.3 F-98.6 F 77-103 16-20 110-156/55-82 93-100 - General Appearance General appearance: well-developed, well-nourished Neck: supple Respiratory: clear Cardiology: regular rate, regular rhythm Gastrointestinal: normoactive bowel sounds Neurologic: alert and oriented x3 - Lab 12/20/16 05:18 12/20/16 05:18 Most recent lab results Calcium 8.8 MG/DL (8.5-10.1) 12/20/16 05:18 Assessment and Plan (1) Decubitus ulcer of left ischium, stage 4 Status: Acute Current Visit: Yes (2) Paraplegia Status: Chronic Current Visit: Yes (3) CKD (chronic kidney disease) stage 5, GFR less than 15 ml/min Problem details: No indication for renal replacement therapy at this time. Status: Chronic Current Visit: Yes
[2016-12-21] MEDS: HYDROmorphone 2 MG/1 ML VIAL IV PRN ×2 (00:55→05:45)
[2016-12-21] MEDS: PIPERACILLIN/TAZOBACTAM 2,250 MG in SODIUM CHLORIDE 0.9% 100 ML IV SCH ×3 (01:07→17:35)
[2016-12-21 06:53] LABS: Basophils # 0.1 10*3/uL (0.0-0.2); Basophils % 0.5 % (0.0-0.8); Eosinophils # 0.3 10*3/uL (0.0-0.87); Eosinophils % 2.3 % (0.00-10.9); Hematocrit 24.9 VOL% (42.0-52.0); Hemoglobin 7.8 GM/DL (14.0-18.0); Immature Granulocytes % 0.7 %; Immature Granulocytes Absolute 0.09 #; Lymphocytes # 1.7 10*3/uL (1.4-4.0); Lymphocytes % 13.7 % (21.2-54.2); Mean Corpuscular HGB Conc 31.3 GM/DL (32-36); Mean Corpuscular Hemoglobin 25 PG (27-34); Mean Corpuscular Volume 79.3 FL (87-102); Mean Platelet Volume 10.1 FL (9.6-12.0); Monocytes # 0.9 10*3/uL (0.11-0.8); Monocytes % 6.9 % (1.7-12.7); Neutrophils # 9.4 10*3/uL (1.4-7.4); Neutrophils % 75.9 % (38.7-73.9); Platelet Count 517 T/CUMM (130-400); Red Blood Count 3.14 MC/CUMM (3.8-5.5); White Blood Count 12.5 T/CUMM (4-12)
[2016-12-21 07:19] LABS: Calcium 8.4 MG/DL (8.5-10.1); Magnesium 1.8 MG/DL (1.8-2.4); Osmolality,Calculated 284.8 MOS/KG (273-304); Potassium 3.5 MMOL/L (3.5-5.1)
[2016-12-21 07:21] LABS: Band Neutrophils 2 % (0-10); Hypochromasia 2+; Lymphocytes 17 % (20-55); Microcytosis 1+; Segmented Neutrophils 76 % (50-85); Total Cells Counted 100
[2016-12-21 07:22] LABS: Platelet Estimate Increased; Target Cells Slight
--- NOTE | 2016-12-21 08:18 | CT Report ---
CT abdomen pelvis wo con Indication: "Large ischio wound needs colostomy" Comparison: None. Technique: CT of the abdomen and pelvis was performed without administration of intravenous contrast. The CT examination was performed using one or more of the following dose reduction techniques: Automatic exposure control, adjustment of the mA and kV according to patient size, use of acute or iterative reconstruction techniques. Findings: Complete evaluation of solid organs, vascular structures, and bowel wall is not possible secondary to lack of intravenous contrast. Lower chest: Motion blurs the lower chest. Nodular nonconsolidating air space attenuation within the right lower lobe may reflect infectious process. No pleural effusions are present. Coronary artery calcifications are present. Liver: The liver demonstrates no evidence of focal hepatic mass or evidence of acute pathology. Gallbladder: Gallbladder demonstrates no significant abnormality. Extrahepatic bile duct within the pancreatic head is enlarged measuring 8 mm. Significance of this finding is uncertain. Spleen: Spleen demonstrates no significant abnormality. Pancreas: Pancreas demonstrates no significant abnormality. Adrenal glands: Digital implants demonstrate no significant abnormalities. Kidneys: Round to oval hypoattenuating lesion with well-defined margin involving lateral cortex left kidney image #63 measures up to 2.7 cm. This may reflect cyst. Aorta: Aorta demonstrates diffuse intimal calcification and Endo stent. Further evaluation is not possible. Inferior vena cava: Inferior vena cava is normal in appearance. Lymph nodes: No adenopathy is noted within the abdomen or pelvis. Stomach and bowel: The appearance of the stomach, duodenum, small bowel, and large bowel suggests no acute findings. Appendix is normal in appearance. Rectal tube is present. Intrapelvic contents: No fluid collections are demonstrated within the pelvis. A rectal tube is present. Pavon catheter is present. The urinary bladder is decompressed and demonstrates diffuse wall thickening. Cystitis is not excluded. Additionally is present within the antidependent portion of the urinary bladder. Osseous structures: Mild appearance of the coccyx is demonstrated with overlying sacral wound. Additionally, there may be cortical thinning with additional mottled appearance of the inferior ramus of the left pubic ramus. Osteomyelitis is suggested. Moderately advanced multilevel facet arthropathy and scoliotic deformity of the lumbar spine are present. At L2-3, endplate irregularity and sclerotic change are present with some prominence of the anterior soft tissues along the anterior margin of the vertebral bodies and interspaces noted on axial series. Discitis osteomyelitis is not excluded. Multiple Schmorl's nodes are present. Soft tissues and musculature: There is a large sacral wound with packing with second large wound involving the left buttock and upper posterior left thigh. Impression: 1. A moderately large sacral wound is present overlying the coccyx. Underlying osteomyelitis of the coccyx is not excluded. 2. A large wound involving the lower left buttock and upper left thigh is present with a large amount of packing noted. Osteomyelitis involving the inferior ramus of the left pelvis could be considered. 3. Discitis osteomyelitis involving the L2-L3 interspace is not excluded. This may simply reflect degenerative change. 4. Cystitis could be considered. In part the appearance of the bladder may reflect compressed state. Correlation with urinalysis and culture are recommended. 5. Nonconsolidated nodular air space attenuation within the right lower lobe may reflect infectious process. 12/21/2016 7:59 AM PROCEDURE INTERPRETED AT [facility] DEPARTMENT OF RADIOLOGY Final Report Signed by: Dr. Shady Dennis
[2016-12-21] MEDS: SODIUM CHLORIDE 0.45% 1,000 ML IV SCH ×2 (09:28→10:37)
[2016-12-21] MEDS: SODIUM ACETATE 150 MEQ in DEXTROSE 5% 1,000 ML IV SCH ×2 (09:28→15:31)
[2016-12-21] MEDS: DUTASTERIDE 0.5 MG CAPSULE PO SCH (09:39)
[2016-12-21] MEDS: ETHAMBUTOL 400 MG TABLET PO SCH (09:40)
[2016-12-21] MEDS: ISONIAZID 300 MG TABLET PO SCH (09:40)
[2016-12-21] MEDS: METOPROLOL SUCCINATE XL 50 MG TABLET PO SCH (09:40)
[2016-12-21] MEDS: TAMSULOSIN 0.4 MG CAPSULE PO SCH (09:40)
[2016-12-21] MEDS: PANTOPRAZOLE 40 MG TABLET PO SCH (09:40)
[2016-12-21] MEDS: GABAPENTIN 300 MG CAPSULE PO SCH (09:41)
[2016-12-21] MEDS: PYRIDOXINE 50 MG TABLET PO SCH (09:41)
[2016-12-21] MEDS: DOCUSATE SODIUM 100 MG CAPSULE PO SCH ×2 (09:42→20:03)
[2016-12-21] MEDS: MULTIVITAMIN (INTRINSIC) CAPSULE PO SCH ×2 (09:42→20:03)
[2016-12-21] MEDS: SODIUM HYPOCHLORITE 0.25% IRRIG 473 ML BOTTLE TOP SCH (10:15)
--- NOTE | 2016-12-21 11:16 | Pathology Report from [facility] ---
[facility] [place] : [id number] PATIENT NAME : Srinivas Artis ORDERING DR : KYLE KIDD MD CLINICAL HX: Decubitis ulcers POST-OP DX: Same SPECIMEN INFO: #1 LT ischial #2 Sacral GROSS DESCRIPTION: The specimen is received in formalin in two parts labeled SRINIVAS ARTIS.. Part #1 labeled LEFT ISCHIAL consists of multiple fragments of debrided focally necrotic soft tissue measuring 16.0 x 5.5 x 3.0 cm in aggregate. Bath Mixer section submitted in cassette #1.Part #2 labeled SACRAL consists of two fragments of debrided focally necrotic soft tissue measuring 8.0 x 6.5 x 1.5 cm collectively. Bath Mixer section submitted in casssette #2. DIAGNOSIS FOR SRINIVAS Perez ODOM: #1 LEFT ISCHIAL ULCER: Necrosis, acute and chronic inflammation, fibrosis.#2 SACRAL ULCER: Necrosis, inflammation, fibrosis. COLLECTED DATE: 12/20/2016 [facility] REPORT DATE: 12/21/2016 ELECTRONICALLY SIGNED BY: Selwyn Tellez M.D. 12/21/2016 - 10:17:26 [facility]
[2016-12-21] MEDS ORDERED: MAGNESIUM CITRATE 300 ML BOTTLE PO ONE (14:13)
--- NOTE | 2016-12-21 14:16 | General Surgery Progress Note ---
Assessment and Plan (1) Decubitus ulcer of left ischium, stage 4 Status: Acute Assessment and plan: Impression: Left ischial decubitus ulcer plan: Excisional debridement and wound care 12/19/2016. Ulcer remains necrotic but fairly clean but there is still an odor associated with it and debridement is required. 12/20/2016. Ulcer has been debrided and now is starting wound care on a very large deep ulcer at this time. Cultures are pending from this wound. Because of its location I have spoken to at least one family member about the possible need for a colostomy on this individual to see exactly what might be diverted so that we can get the best chance for healing. 12/21/2016. Had a long discussion with family about his left ischial decubitus ulcer and how healing would be improved if we could divert his fecal stream. They have had experience with colostomies and seem to be agreeable to go ahead and do a diverting colostomy on the patient at this time. His labs look fairly stable his his hematocrit is low and we may have to transfuse him before the surgery. CT scan of the abdomen and pelvis looks okay denies any masses or other problems associated with the colon to prevent us from doing surgery. We will set him up for Monday while we get a little bowel prep in place. Current Visit: Yes (2) Decubitus ulcer of sacral region, unstageable Status: Acute Assessment and plan: Impression: Sacral decubitus ulcer unstageable Plan: Surgical debridement and wound care 12/19/2016. Sacral ulcer is stable and clean some debridements can be required this also. 12/20/2016. Sacral ulcer has been debrided and it is stage IV now also. Starting wound care to this also. Current Visit: Yes (3) Renal insufficiency syndrome Status: Chronic Assessment and plan: Impression: Renal insufficiency Plan: Nephrology consult for management 12/19/2016. Renal insufficiency remains stable at this time with a creatinine of 4.1 nephrology is following him at this point. Current Visit: Yes (4) Hyperkalemia, diminished renal excretion Problem details: Normalized. Status: Resolved Assessment and plan: Impression: Hyperkalemia probably secondary to renal insufficiency Plan: Nephrology to look and treat 12/19/2016. Potassium is down at this time around 3.8 and seems to be under control at this point. Current Visit: Yes (5) Paraplegia Status: Chronic Assessment and plan: Impression: Paraplegia etiology unclear Plan: Management preventive care Current Visit: Yes (6) Anemia Problem details: could be related to CKD or paraproteinemia Status: Acute Assessment and plan: Impression: Anemia of chronic disease Plan: We will transfuse 12/19/2016. Anemia persists at this time hematocrits 26 but he seems to be fairly stable at this point. Still not sure the etiology of this and renal is working him up at this time. Current Visit: Yes Subjective Patient reports: Present: no new complaints, tolerating a regular diet, afebrile Exam - Constitutional Vitals: Period Temp Pulse Resp BP Sys/[place] Pulse Ox Last 24 Hr 96.5 F-98.2 F 77-87 14-83 103-133/55-68 90-98 General appearance: mild distress - Head Head exam: Present: normal inspection - ENT ENT exam: Present: normal exam - Neck Neck exam: Present: normal inspection - Respiratory Respiratory exam: Present: rales - Cardiovascular Cardiovascular exam: Present: RRR - GI/Abdominal GI/Abdominal exam: Present: hypoactive bowel sounds, soft. Absent: tenderness - Extremities Exam Extremities exam: Present: normal inspection - Back Exam Back exam: Present: other (Sacral decubitus ulcer and left ischial decubitus ulcer) - Neurological Exam Neurological exam: Present: altered - Skin Skin exam: Present: normal color, warm, dry Results - Labs CBC & BMP: 12/21/16 05:56 12/21/16 05:56 Lab Results: I have reviewed the past 24 hour labs Quality Measures - VTE Contraindication to Pharmacological VTE Prophylaxis: High Risk of Bleeding
--- NOTE | 2016-12-21 16:44 | Nephrology Progress Note ---
Nephrology - PN: Subj Interval history: 12/20/2016 patient is resting comfortably. Serum creatinine stable at 4.1. No other acute changes. 12/21/2016: The patient is resting comfortably no acute changes. There have been discussions with family about setting up a diverting colostomy to help with further sacral wound healing. The patient is resting serum creatinine is remained stable at 4.1. No other acute changes. The colostomy is scheduled for later this week. He has had a CT scan of the abdomen which showed no abnormalities. Exam (PN)-Nephrology - Vital Signs Vital signs: Period Temp Pulse Resp BP Sys/[place] Pulse Ox Last 24 Hr 96.5 F-98.2 F 77-87 14-83 98-129/52-68 90-97 - General Appearance General appearance: fatigue, frail EENT: ATNC Neck: supple Respiratory: clear Cardiology: regular rate, regular rhythm Gastrointestinal: normoactive bowel sounds, no tenderness Musculoskeletal: no clubbing - Lab 12/21/16 05:56 12/21/16 05:56 Most recent lab results Calcium 8.4 MG/DL (8.5-10.1) L 12/21/16 05:56 Magnesium 1.8 MG/DL (1.8-2.4) 12/21/16 05:56 Assessment and Plan (1) Decubitus ulcer of left ischium, stage 4 Status: Acute Assessment and plan: Cared for by Dr. Carroll Current Visit: Yes (2) Paraplegia Status: Chronic Current Visit: Yes (3) CKD (chronic kidney disease) stage 5, GFR less than 15 ml/min Problem details: No indication for renal replacement therapy at this time. Status: Chronic Current Visit: Yes
[2016-12-22] MEDS: PIPERACILLIN/TAZOBACTAM 2,250 MG in SODIUM CHLORIDE 0.9% 100 ML IV SCH ×2 (00:36→07:29)
[2016-12-22] MEDS: SODIUM ACETATE 150 MEQ in DEXTROSE 5% 1,000 ML IV SCH ×2 (04:20→20:06)
[2016-12-22 05:52] LABS: Basophils # 0.1 10*3/uL (0.0-0.2); Basophils % 0.5 % (0.0-0.8); Eosinophils # 0.3 10*3/uL (0.0-0.87); Eosinophils % 2.7 % (0.00-10.9); Hemoglobin 7.4 GM/DL (14.0-18.0); Immature Granulocytes % 0.7 %; Immature Granulocytes Absolute 0.08 #; Lymphocytes # 1.5 10*3/uL (1.4-4.0); Lymphocytes % 12.1 % (21.2-54.2); Mean Corpuscular HGB Conc 32.2 GM/DL (32-36); Mean Corpuscular Hemoglobin 26 PG (27-34); Mean Corpuscular Volume 79.3 FL (87-102); Mean Platelet Volume 10.1 FL (9.6-12.0); Monocytes # 1.2 10*3/uL (0.11-0.8); Monocytes % 9.8 % (1.7-12.7); Neutrophils % 74.2 % (38.7-73.9); Platelet Count 461 T/CUMM (130-400); Red Cell Distribution Width 18.6 % (9.3-17.3); White Blood Count 12.1 T/CUMM (4-12)
[2016-12-22 05:53] LABS: INR 1.1; PT Patient Result 11.7 SECS; Partial Thromboplastin Time 33.1 SECS (0-40)
[2016-12-22] MEDS: HYDROmorphone 2 MG/1 ML VIAL IV PRN (06:11)
[2016-12-22 06:12] LABS: Calcium 8.2 MG/DL (8.5-10.1); Osmolality,Calculated 281.8 MOS/KG (273-304); Potassium 3.5 MMOL/L (3.5-5.1)
[2016-12-22 06:14] LABS: Hypochromasia 1+; Microcytosis 1+; Platelet Estimate Adequate
[2016-12-22] MEDS ORDERED: SODIUM CHLORIDE 0.9% 250 ML IV PRN (07:10)
--- NOTE | 2016-12-22 07:27 | EKG Report ---
Stationary ECG Study [facility] Test Date: 12/22/2016 7:27:36 AM Pat Name: LJ MATHIAS Department: Room: 328 Gender: M Concrete Carpenter: JOAQUÍN : 1945 Requested by: Navid Carroll Order Number: [id number] Reading MD: JANE PRADO Intervals [place] Rate: 65 P: 69 CO: 156 QRS: 73 QRSD: 91 T: 82 QT: 411 QTc: 422 Interpretive Statements SINUS RHYTHM LOW QRS VOLTAGE IN PRECORDIAL LEADS NONSPECIFIC T-WAVE ABNORMALITY Electronically Signed On 12-24-16 14:08:43 CDT by JANE PRADO [email or web address]
--- NOTE | 2016-12-22 08:37 | XRay Report ---
History: Respiratory preop evaluation Date: 12/22/2016 Study: Chest x-ray AP portable Comparison exam: December 16, 2016 The cardiac silhouette is not enlarged. There is no mediastinal mass. The pulmonary vasculature is not engorged. The lungs and pleural spaces are clear. There is mild to moderate thoracic spondylosis. Impression: No acute cardiopulmonary process. No adverse interval change PROCEDURE INTERPRETED AT [facility] DEPARTMENT OF RADIOLOGY Final Report Signed by: Dr. Kayla Suarez
[2016-12-22] MEDS: MULTIVITAMIN (INTRINSIC) CAPSULE PO SCH ×2 (09:01→20:06)
[2016-12-22] MEDS: DUTASTERIDE 0.5 MG CAPSULE PO SCH (09:01)
[2016-12-22] MEDS: PYRIDOXINE 50 MG TABLET PO SCH (09:02)
[2016-12-22] MEDS: DOCUSATE SODIUM 100 MG CAPSULE PO SCH ×2 (09:02→20:06)
[2016-12-22] MEDS: METOPROLOL SUCCINATE XL 50 MG TABLET PO SCH (09:03)
[2016-12-22] MEDS: GABAPENTIN 300 MG CAPSULE PO SCH (09:03)
[2016-12-22] MEDS: TAMSULOSIN 0.4 MG CAPSULE PO SCH (09:03)
[2016-12-22] MEDS: PANTOPRAZOLE 40 MG TABLET PO SCH (09:04)
[2016-12-22] MEDS: SODIUM HYPOCHLORITE 0.25% IRRIG 473 ML BOTTLE TOP SCH (09:27)
--- NOTE | 2016-12-22 09:58 | Nephrology Progress Note ---
Nephrology - PN: Subj Interval history: Pt is cooperative. Oriented to time and person. Not to situation or place. Pleasantly demented. Paraproteinemia workup, SPEP/UPEP no M spike. Free light chains, K and L elevated with elevated K/L ratio. Creatinine stable at 4.1 for calculated eGFR 18cc/min (CKD stage 4). Exam (PN)-Nephrology - Vital Signs Vital signs: Period Temp Pulse Resp BP Sys/[place] Pulse Ox Last 24 Hr 97.1 F-98.4 F 67-81 14-20 93-139/52-67 95-100 - General Appearance General appearance: cachectic, chronically ill EENT: ATNC, PERRL, mucous membranes dry, hearing intact, vision intact Neck: no JVD, no thyromegaly Respiratory: no kyphosis, clear Cardiology: no murmurs, no rub, no edema Gastrointestinal: normoactive bowel sounds, no tenderness Integumentary: no rash, warm and dry Neurologic: no focal deficit, no asterixis, disoriented Musculoskeletal: no deformities, no erythema Psychiatric: mood/affect appropriate, cooperative - Lab 12/22/16 04:53 12/22/16 04:53 Most recent lab results Calcium 8.2 MG/DL (8.5-10.1) L 12/22/16 04:53 Magnesium 1.8 MG/DL (1.8-2.4) 12/21/16 05:56 Assessment and Plan (1) CKD (chronic kidney disease) stage 5, GFR less than 15 ml/min Problem details: No indication for renal replacement therapy at this time. Status: Chronic Current Visit: Yes (2) Paraproteinemia Status: Chronic Assessment and plan: most likely due to CKD. Current Visit: Yes (3) Anemia Problem details: Mostly likely related to renal dz. Status: Acute Assessment and plan: SPEP/UPEP/serum free light chains abnormal most likely due to CKD. Current Visit: Yes
--- NOTE | 2016-12-22 10:40 | General Surgery Progress Note ---
Assessment and Plan (1) Decubitus ulcer of left ischium, stage 4 Status: Acute Assessment and plan: Impression: Left ischial decubitus ulcer plan: Excisional debridement and wound care 12/19/2016. Ulcer remains necrotic but fairly clean but there is still an odor associated with it and debridement is required. 12/20/2016. Ulcer has been debrided and now is starting wound care on a very large deep ulcer at this time. Cultures are pending from this wound. Because of its location I have spoken to at least one family member about the possible need for a colostomy on this individual to see exactly what might be diverted so that we can get the best chance for healing. 12/21/2016. Had a long discussion with family about his left ischial decubitus ulcer and how healing would be improved if we could divert his fecal stream. They have had experience with colostomies and seem to be agreeable to go ahead and do a diverting colostomy on the patient at this time. His labs look fairly stable his his hematocrit is low and we may have to transfuse him before the surgery. CT scan of the abdomen and pelvis looks okay denies any masses or other problems associated with the colon to prevent us from doing surgery. We will set him up for Monday while we get a little bowel prep in place. 12/22/2016. Patient has this large issue decubitus ulcer and is fairly clean but we have had some stool soiling associated with it. Have discussed things with the family and were planning to do a diverting colostomy so we can improve the wound care. He has renal insufficiency and his hematocrit was 23 this morning go ahead and transfuse him up to get him ready for surgery. He has been undergoing a mechanical bowel prep at this point just clean the colon as best we can get it. Current Visit: Yes (2) Decubitus ulcer of sacral region, unstageable Status: Acute Assessment and plan: Impression: Sacral decubitus ulcer unstageable Plan: Surgical debridement and wound care 12/19/2016. Sacral ulcer is stable and clean some debridements can be required this also. 12/20/2016. Sacral ulcer has been debrided and it is stage IV now also. Starting wound care to this also. Current Visit: Yes (3) Renal insufficiency syndrome Status: Chronic Assessment and plan: Impression: Renal insufficiency Plan: Nephrology consult for management 12/19/2016. Renal insufficiency remains stable at this time with a creatinine of 4.1 nephrology is following him at this point. Current Visit: Yes (4) Hyperkalemia, diminished renal excretion Problem details: Normalized. Status: Resolved Assessment and plan: Impression: Hyperkalemia probably secondary to renal insufficiency Plan: Nephrology to look and treat 12/19/2016. Potassium is down at this time around 3.8 and seems to be under control at this point. Current Visit: Yes (5) Paraplegia Status: Chronic Assessment and plan: Impression: Paraplegia etiology unclear Plan: Management preventive care Current Visit: Yes (6) Anemia Problem details: Mostly likely related to renal dz. Status: Acute Assessment and plan: Impression: Anemia of chronic disease Plan: We will transfuse 12/19/2016. Anemia persists at this time hematocrits 26 but he seems to be fairly stable at this point. Still not sure the etiology of this and renal is working him up at this time. Current Visit: Yes Subjective Patient reports: Present: no new complaints, afebrile Exam - Constitutional Vitals: Period Temp Pulse Resp BP Sys/[place] Pulse Ox Last 24 Hr 97.1 F-98.4 F 67-81 14-20 93-139/52-67 95-100 General appearance: mild distress - Head Head exam: Present: normal inspection - ENT ENT exam: Present: normal exam - Neck Neck exam: Present: normal inspection - Respiratory Respiratory exam: Present: rales - Cardiovascular Cardiovascular exam: Present: RRR - GI/Abdominal GI/Abdominal exam: Present: hypoactive bowel sounds, soft - Extremities Exam Extremities exam: Present: normal inspection - Back Exam Back exam: Present: other (Large left issue wound is fairly clean with no necrotic tissue present at this time but no granulating tissue present. Sacral ulcer is basically clean but the base fascial tissue looks a little dark and dry at this point.) - Neurological Exam Neurological exam: Present: altered - Skin Skin exam: Present: normal color, warm, dry Results - Labs CBC & BMP: 12/22/16 04:53 12/22/16 04:53 Lab Results: I have reviewed the past 24 hour labs Quality Measures - VTE Contraindication to Pharmacological VTE Prophylaxis: High Risk of Bleeding
[2016-12-22 19:54] LABS: Hematocrit 30.8 VOL% (42.0-52.0); Hemoglobin 9.9 GM/DL (14.0-18.0)
[2016-12-22] MEDS: SODIUM CHLORIDE 0.45% 1,000 ML IV SCH (20:05)
[2016-12-22] MEDS: PIPERACILLIN/TAZOBACTAM 3,375 MG in SODIUM CHLORIDE 0.9% 100 ML IV SCH (20:06)
[2016-12-23] MEDS: PIPERACILLIN/TAZOBACTAM 3,375 MG in SODIUM CHLORIDE 0.9% 100 ML IV SCH ×2 (09:04→21:27)
[2016-12-23] MEDS: METOPROLOL SUCCINATE XL 50 MG TABLET PO SCH (09:05)
[2016-12-23] MEDS ORDERED: ceFAZolin 2,000 MG in PREMIX 1 EACH IV ONE (10:00)
--- NOTE | 2016-12-23 10:56 | Nephrology Progress Note ---
Nephrology - PN: Subj Interval history: Pt is pleasantly demented. Hx not reliable. He denies SOB/pain. Exam (PN)-Nephrology - Vital Signs Vital signs: Period Temp Pulse Resp BP Sys/Alcala Pulse Ox Last 24 Hr 9.4 F-98.3 F 59-79 14-20 111-173/56-82 94-100 - General Appearance General appearance: cachectic, chronically ill EENT: ATNC, PERRL, mucous membranes dry, hearing intact, vision intact Neck: no JVD, no thyromegaly Respiratory: no kyphosis, clear Cardiology: no murmurs, no rub, no edema Gastrointestinal: normoactive bowel sounds, no tenderness Integumentary: no rash, warm and dry Neurologic: no focal deficit, no asterixis, disoriented Musculoskeletal: no deformities, no erythema Psychiatric: mood/affect appropriate, cooperative - Lab 12/22/16 19:24 12/22/16 04:53 Most recent lab results Calcium 8.2 MG/DL (8.5-10.1) L 12/22/16 04:53 Magnesium 1.8 MG/DL (1.8-2.4) 12/21/16 05:56 Assessment and Plan (1) CKD (chronic kidney disease) stage 5, GFR less than 15 ml/min Problem details: No indication for renal replacement therapy at this time. Status: Chronic Current Visit: Yes (2) Anemia Problem details: Mostly likely related to renal dz. Status: Acute Assessment and plan: SPEP/UPEP/serum free light chains abnormal most likely due to CKD. Current Visit: Yes
[2016-12-23] MEDS ORDERED: EPINEPHrine 1 MG/ML VIAL ONE (13:42)
[2016-12-23] MEDS ORDERED: PHENYLEPHRINE 1 MG/10 ML SYRINGE IV ONE (13:42)
[2016-12-23] MEDS ORDERED: ROCURONIUM 100 MG/10 ML VIAL IV ONE (13:42)
[2016-12-23] MEDS ORDERED: PROPOFOL 200 MG/20 ML VIAL IV ONE (13:42)
[2016-12-23] MEDS ORDERED: LIDOCAINE 1% 5 ML VIAL ONE (13:42)
[2016-12-23] MEDS ORDERED: DEXTROSE 5% NACL 0.9% 1,000 ML IV SCH (14:30)
--- NOTE | 2016-12-23 15:28 | Operative Note ---
Date of procedure: 12/23/16 Pre-op diagnosis: Large left ischial ulcer near the rectum with stool contamination Post-op diagnosis: same Procedure: Operative note: Preoperative diagnosis: Large left ischial decubitus ulcer with fecal contamination Postoperative diagnosis: Same Procedure: Loop diverting sigmoid colostomy left lower quadrant Surgeon Dr. 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 He came to us with a large ischial decubitus ulcer that after debridement was extremely large and deep. It is is pretty close to the rectal area and we have not some problem with stool contamination. Discussed the situation with the family and the fact this can be difficult to heal this and keep it clean with stool contaminating it. They were agreeable to a loop diverting colostomy in order to try to keep this from soiling the wound bed at this time. Procedure: With patient supine position prepped and draped in sterile fashion timeout and antibiotics completed we looked at the area of the abdominal wall. We picked a spot there was about a third of the way from the anterior iliac crest and two thirds way from the umbilicus where we decided to place a colostomy. We made a transverse incision through the skin subcutaneous tissue down to the level of the fascia I then incised the fascia in a transverse fashion. We then split the muscle in the direction of its fibers picked of the posterior rectus sheath and peritoneum and opened it in the direction of its fibers. Unfortunately get part of the vessel in the muscle that we oversewed put 2 clips own in order to control at this time. Once that was under control and we are in the abdominal cavity we put him in Trendelenburg at which time we packed off the bile little bit until we can carefully dissected down and identified the sigmoid colon which we put a [place] alone. We brought it up as much as we could and then I had to mobilize it laterally by incising the peritoneal attachments on the lateral aspect and dissected underneath it until we got a good loop coming up out of the wound and has an above the skin. Once that was in good position there we pulled our labs and got a good lap complete lack This time and then tacked the bowel to the posterior rectus sheath and peritoneum with interrupted 3-0 Ethibond sutures and we tacked the bowel to the anterior rectus sheath with interrupted 3-0 Ethibond sutures. Will put a bridge underneath it to hold it up and then we matured the colostomy by incising it with cautery and an opening it up and then suturing it to the skin with interrupted 3-0 Vicryl sutures leaving the bridge underneath. Once that looked good and stable at this point and we placed a bag on it with the patient recovery room. Anesthesia indicated that his pressures have been running a little low and they felt that we will keep him on the ventilator at this point so we will go ahead and moved to the unit. Estimated blood loss 10 cc Sponge count correct 2 Drains none Complications none Condition stable satisfactory Anesthesia: RADHA Surgeon / Physician: Navid Carroll Converter Operator: Carli Carrillo Estimated blood loss: other (10 cc) Specimens: none sent Condition: other (Guarded) Disposition: ICU Results - Labs CBC & BMP: 12/22/16 19:24 12/22/16 04:53 Discharge Plan - Discharge Medications No Action Ethambutol HCl [Myambutol] 1,200 mg PO MOWEFR Pyridoxine HCl (Vitamin B6) [Vitamin B-6] 25 mg PO DAILY Isoniazid 900 mg PO MOWEFR Cholecalciferol (Vitamin D3) [Vitamin D3] 2,000 unit PO DAILY Azithromycin 500 mg PO MOWEFR Tamsulosin [Flomax] 0.4 mg PO DAILY Metoprolol Succinate Xl [Toprol Xl] 50 mg PO BEDTIME rifAMPin [Rifampin] 900 mg PO MOWEFR Dutasteride [Avodart] 0.5 mg PO BEDTIME Gabapentin Cap/Tab [Neurontin Cap/Tab] 300 mg PO BEDTIME Feracon 1 tablet PO BID - Follow Up or Referral - Forms/Instructions
[2016-12-23] MEDS ORDERED: PROPOFOL 1,000 MG/100 ML BOTTLE IV ONE (15:44)
[2016-12-23] MEDS ORDERED: MIDAZOLAM 2 MG/2 ML VIAL ONE (15:51)
[2016-12-23] MEDS ORDERED: SEVOFLURANE 1 UNIT/15 MINUTE INH ONE (15:51)
[2016-12-23] MEDS ORDERED: fentaNYL 100 MCG/2 ML VIAL ONE (15:51)
[2016-12-23] MEDS: PROPOFOL 1,000 MG/100 ML BOTTLE IV SCH ×2 (15:58→22:55)
--- NOTE | 2016-12-23 16:00 | XRay Report ---
XR chest 1V portable Indication: Intubation. Comparison: Chest x-ray 12/22/2016. Technique: Portable AP chest was performed. Findings: Endotracheal tube terminates at the sternoclavicular junction. No significant change in the chest has occurred since comparison study. Impression: 1. Interval placement of endotracheal tube as detailed. No adverse interval change in the chest. 12/23/2016 3:57 PM PROCEDURE INTERPRETED AT [facility] DEPARTMENT OF RADIOLOGY Final Report Signed by: Dr. Shady Dennis
[2016-12-23] MEDS: DEXTROSE 5% NACL 0.9% 1,000 ML IV SCH (16:33)
[2016-12-23] MEDS: HYDROmorphone 2 MG/1 ML VIAL IV PRN ×2 (16:42→22:55)
[2016-12-23 16:52] LABS: Hematocrit 29.5 VOL% (42.0-52.0); Hemoglobin 9.6 GM/DL (14.0-18.0)
[2016-12-23 16:58] LABS: ABG Base Excess 5.4 MMOL/L (-2.5-2.5); ABG HCO3 29.4 MMOL/L (20-26); ABG Oxygen Saturation 99.6 % (95-100); ABG PCO2 38.1 MM HG (35-48); ABG TCO2 26.4 MMOL/L (23-27)
[2016-12-23] MEDS: DUTASTERIDE 0.5 MG CAPSULE PO SCH (18:03)
[2016-12-23] MEDS: DOCUSATE SODIUM 100 MG CAPSULE PO SCH ×2 (18:03→21:26)
[2016-12-23] MEDS: SODIUM HYPOCHLORITE 0.25% IRRIG 473 ML BOTTLE TOP SCH ×2 (18:03→22:30)
[2016-12-23] MEDS: ISONIAZID 300 MG TABLET PO SCH (18:03)
[2016-12-23] MEDS: TAMSULOSIN 0.4 MG CAPSULE PO SCH (18:03)
[2016-12-23] MEDS: ETHAMBUTOL 400 MG TABLET PO SCH (18:04)
[2016-12-23] MEDS: MULTIVITAMIN (INTRINSIC) CAPSULE PO SCH ×2 (18:04→21:26)
[2016-12-23] MEDS: PYRIDOXINE 50 MG TABLET PO SCH (18:04)
[2016-12-23] MEDS: GABAPENTIN 300 MG CAPSULE PO SCH (18:04)
[2016-12-23] MEDS: SODIUM CHLORIDE 0.45% 1,000 ML IV SCH (18:05)
[2016-12-23] MEDS: PANTOPRAZOLE 40 MG TABLET PO SCH (18:05)
[2016-12-23] MEDS ORDERED: PHENYLEPHRINE DRIP 40 MG/250 ML PREMIX IV SCH (20:30)
[2016-12-23] MEDS: ceFAZolin 2,000 MG in PREMIX 1 EACH IV SCH (21:26)
[2016-12-24] MEDS ORDERED: SODIUM CHLORIDE 0.9% 250 ML IV ONE (02:41)
[2016-12-24 02:45] LABS: Basophils # 0.1 10*3/uL (0.0-0.2); Basophils % 1.1 % (0.0-0.8); Eosinophils # 0.3 10*3/uL (0.0-0.87); Eosinophils % 2.5 % (0.00-10.9); Hematocrit 30.3 VOL% (42.0-52.0); Hemoglobin 9.8 GM/DL (14.0-18.0); Immature Granulocytes % 0.9 %; Immature Granulocytes Absolute 0.09 #; Lymphocytes # 1.8 10*3/uL (1.4-4.0); Lymphocytes % 18.4 % (21.2-54.2); Mean Corpuscular HGB Conc 32.3 GM/DL (32-36); Mean Corpuscular Hemoglobin 27 PG (27-34); Mean Corpuscular Volume 81.9 FL (87-102); Mean Platelet Volume 9.7 FL (9.6-12.0); Monocytes # 0.6 10*3/uL (0.11-0.8); Monocytes % 5.6 % (1.7-12.7); Neutrophils # 7.1 10*3/uL (1.4-7.4); Neutrophils % 71.5 % (38.7-73.9); Platelet Count 465 T/CUMM (130-400); Red Cell Distribution Width 17.7 % (9.3-17.3)
[2016-12-24 03:09] LABS: Calcium 8.1 MG/DL (8.5-10.1); Osmolality,Calculated 286.4 MOS/KG (273-304); Potassium 3.4 MMOL/L (3.5-5.1)
[2016-12-24 03:12] LABS: Alanine Aminotransferase < 6 U/L (16-61); Albumin 1.7 G/DL (3.4-5.0); Alkaline Phosphatase 61 U/L (45-117); Aspartate Amino Transferase 18 U/L (0-37); Bilirubin,Total < 0.39 MG/DL (0.2-1.0); Blood Urea Nitrogen 34 MG/DL (7-18); Calcium 8.4 MG/DL (8.5-10.1); Glucose 94 MG/DL (74-106); Osmolality,Calculated 286.4 MOS/KG (273-304); Potassium 3.4 MMOL/L (3.5-5.1); Sodium 140 MMOL/L (136-145); Total Protein 6.4 G/DL (6.4-8.3)
[2016-12-24 04:13] LABS: ABG Base Excess 3.9 MMOL/L (-2.5-2.5); ABG HCO3 26.7 MMOL/L (20-26); ABG Oxygen Saturation 99.1 % (95-100); ABG PCO2 33.4 MM HG (35-48); ABG PH 7.521 (7.35-7.45); ABG PO2 207.9 MM HG (80-95); ABG TCO2 27.7 MMOL/L (23-27); Pt O2 Delivery Device Ventilator
[2016-12-24 05:11] LABS: Eosinophils 5 % (0-10); Lymphocytes 20 % (20-55); Segmented Neutrophils 71 % (50-85)
[2016-12-24 05:12] LABS: Hypochromasia 2+; Target Cells Few
[2016-12-24 05:13] LABS: Platelet Estimate Increased; Total Cells Counted 100
[2016-12-24] MEDS: ceFAZolin 2,000 MG in PREMIX 1 EACH IV SCH (05:33)
[2016-12-24] MEDS: HYDROmorphone 2 MG/1 ML VIAL IV PRN (05:34)
[2016-12-24] MEDS: PROPOFOL 1,000 MG/100 ML BOTTLE IV SCH ×2 (06:04→16:41)
[2016-12-24] MEDS: DEXTROSE 5% NACL 0.9% 1,000 ML IV SCH ×2 (06:31→18:52)
[2016-12-24] MEDS: PIPERACILLIN/TAZOBACTAM 3,375 MG in SODIUM CHLORIDE 0.9% 100 ML IV SCH ×2 (08:08→21:22)
--- NOTE | 2016-12-24 08:25 | Pulmonology Consult Note ---
History of Present Illness Chief complaint: Postop mechanical ventilation. History of present illness: Mr. Artis is a 71 year old black male whom I been asked to see postop for management of mechanical ventilation. This patient has had debridement of a large decubitus ulcer. He is on mechanical ventilation. So far he has not shown a willingness to breathe. The patient has been sedated. He is now waking up but is unable to give a review of systems. Therefore his review of systems is negative. Allergies. None Home medicines. See below. These include Zithromax and ethambutol and INH along with vitamin B6 and rifampin. Past history. High blood pressure. Depression. COPD. Chronic renal problems. Incompetent urinary bladder. History of hemorrhoids. 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 Social history smokes on a daily basis Family history. His siblings have had diabetes Microbiology cultures have grown enterococcus faecalis and Estrellita albicans from his wound. ABGs. Mechanical ventilation. FiO2 40%. PH 7.52, PCO2 33.4, PO2 207.9, bicarb 26.7 Lab. Sodium is 140. Potassium 3.4. Creatinine is 4.20. BUN is 33. White count is 10,000 with 71.56 and 18 lymphs. H&H is 9.8/30.3. Platelets of 465, 000. Labs been reviewed Medicines have been reviewed. Physical exam. Neurologic. Slow to wake up. Vital signs see below Neck. No meningismus Lymphatics. No submandibular cervical supraclavicular adenopathy Chest. Clear breath sounds Heart. No gallop Abdomen. Nondistended. Only rare bowel sounds. Neurologic. Patient has some movement in his arms. The remainder the exam is noncontributory. Impression. 1. Postop mechanical ventilation. Slow to wake up. 2. Postop debridement of sacral wound 3. Infected skin wounds 4. Chronic renal failure 5. Anemia 6. COPD. 7. See past history Plan. 1. We will decrease the patient's IMV to 6 once he wakes up and begins to breathe will go to a T-tube and extubating when he is strong enough. If he does not do well will go with a weaning protocol as well as a physical therapy protocol 2. No other changes made at this point Home Medications Medication Instructions Recorded Confirmed Type Azithromycin 500 mg PO MOWEFR 12/15/16 12/16/16 History Cholecalciferol (Vitamin D3) 2,000 unit PO DAILY 12/15/16 12/16/16 History [Vitamin D3] Dutasteride [Avodart] 0.5 mg PO BEDTIME 12/15/16 12/16/16 History Ethambutol HCl [Myambutol] 1,200 mg PO MOWEFR 12/15/16 12/16/16 History Feracon 1 tablet PO BID 12/15/16 12/16/16 History Gabapentin Cap/Tab [Neurontin 300 mg PO BEDTIME 12/15/16 12/16/16 History Cap/Tab] Isoniazid 900 mg PO MOWEFR 12/15/16 12/16/16 History Metoprolol Succinate Xl [Toprol Xl] 50 mg PO BEDTIME 12/15/16 12/16/16 History Pyridoxine HCl (Vitamin B6) 25 mg PO DAILY 12/15/16 12/16/16 History [Vitamin B-6] Tamsulosin [Flomax] 0.4 mg PO DAILY 12/15/16 12/16/16 History rifAMPin [Rifampin] 900 mg PO MOWEFR 12/15/16 12/16/16 History Allergies Allergy/AdvReac Type Severity Reaction Status Date / Time No Known Allergies Allergy Unverified 12/16/16 06:27 Exam (Pulmonay) H&P - Constitutional Vitals: Period Temp Pulse Resp BP Sys/[place] Pulse Ox Last 24 Hr 94.9 F-98.2 F 54-88 8-20 44-161/34-111 8-100 Medical,Surgical,& Family Hx - Medical History Cardio: History of: Hypertension Psychological: History of: Depression Neurology: No history of: Seizures HEENT: History of: Ear Problem (HARD OF HEARING) No history of: Dental Problems Endocrine: No history of: Diabetes Mellitus (NIDDM) Rheumatology: History of;: Rheumatoid Arthritis Respiratory: Comment Only: COPD (SMOKER) Renal: History of: Renal Problems (chronic kidney disease) Genitourinary: History of: Recurring Urinary Tract Infections Comment Only: Bladder Problem (INCONTINENT - WEARS ADULT DIAPERS) Gastrointestinal: History of: Hemorrhoids Musculoskeletal: Comment Only: Musculoskeletal Problems (PATIENT IS PARAPLEGIC AFTER CYST DRAINAGE OFF SPINE - MAY 2016) Hematology: No history of: Sickle Cell Disease Other: History of: Skin Problems (BREAKDOWN/ULCERS TO SACRAL AREA) - Surgical History Orthopedic Surgeries: Surgical HX of;: Orthopedic Surgery (LEFT COLLAR BONE - 2010), Spinal Surgery (CYST ON SPINE - DRAINAGE DONE) - Family History Family History: Reports;: Family Diabetes (SIBLINGS) - Social History Smoking Status: Current every day smoker Frequency of Alcohol Use: None Type of Drug Use: None Results - Labs CBC & BMP: 12/24/16 02:23 12/24/16 02:23 Quality Measures - VTE Contraindication to Pharmacological VTE Prophylaxis: High Risk of Bleeding
--- NOTE | 2016-12-24 08:50 | XRay Report ---
XR chest 1V portable Indication: Shortness of breath Comparison: Chest x-ray 12/23/2016 Technique: Portable AP chest was performed. Findings: Endotracheal tube is stable in position. Heart size remains normal. Mediastinal contour and thoracic vasculature appear stable. Lungs are clear. Note is made of small calcifications bilaterally in the region of each inferior axillary pouch. Small intra-articular free bodies within the glenohumeral joint space and I excluded. Alternatively this could reflect basilar calcification within axillary arteries. Impression: 1. Stable chest no evidence of active cardiopulmonary disease. 12/24/2016 8:45 AM PROCEDURE INTERPRETED AT [facility] DEPARTMENT OF RADIOLOGY Final Report Signed by: Dr. Shady Dennis
--- NOTE | 2016-12-24 10:09 | Nephrology Progress Note ---
Nephrology - PN: Subj Interval history: He underwent colostomy yesterday. He remains on the ventilator. Blood pressure stable Exam (PN)-Nephrology - Vital Signs Vital signs: Period Temp Pulse Resp BP Sys/[place] Pulse Ox Last 24 Hr 94.9 F-98.2 F 54-88 8-20 44-161/34-111 8-100 Exam: Gen.: Sedated on ventilator ENT: Pupils equal round reactive to light. Neck: Supple. No JVD or bruit. Cardiovascular: Regular rate and rhythm. No murmur rub or gallop Lungs: Clear Abdomen: Soft. Nontender. Positive bowel sounds. No organomegaly Extremities: No edema - Lab 12/24/16 02:23 12/24/16 02:23 Most recent lab results ABG pH 7.521 (7.35-7.45) H 12/24/16 03:55 ABG pCO2 33.4 MM HG (35-48) L 12/24/16 03:55 ABG pO2 207.9 MM HG (80-95) H 12/24/16 03:55 ABG HCO3 26.7 MMOL/L (20-26) H 12/24/16 03:55 ABG O2 Saturation 99.1 % (95-100) 12/24/16 03:55 Calcium 8.4 MG/DL (8.5-10.1) L 12/24/16 02:23 Phosphorus 4.3 MG/DL (2.5-4.9) 12/24/16 02:23 Magnesium 2.0 MG/DL (1.8-2.4) 12/24/16 02:24 Assessment and Plan (1) CKD (chronic kidney disease) stage 5, GFR less than 15 ml/min Problem details: No indication for renal replacement therapy at this time. Status: Chronic Assessment and plan: 71-year-old man with: * CRF stage V. Renal function stable. Volume status acceptable * Decubitus ulcer. Status post diverting colostomy yesterday * Anemia Current Visit: Yes (2) Anemia Problem details: Mostly likely related to renal dz. Status: Acute Current Visit: Yes (3) Decubitus ulcer of left ischium, stage 4 Status: Acute Current Visit: Yes
[2016-12-24 10:15] LABS: ABG Base Excess 1.5 MMOL/L (-2.5-2.5); ABG HCO3 25.8 MMOL/L (20-26); ABG Oxygen Saturation 99.3 % (95-100); ABG PH 7.414 (7.35-7.45); ABG TCO2 23.6 MMOL/L (23-27); Allen Test Positive
--- NOTE | 2016-12-24 10:45 | Event Note ---
He is stable postoperatively from diverting colostomy. The nurses report no problems. He has stable vital signs. He is on T-piece and hopefully will be extubated today. His lab work looks good.
[2016-12-24] MEDS: PANTOPRAZOLE 40 MG VIAL IV SCH (10:57)
[2016-12-24] MEDS: ENOXAPARIN 30 MG/0.3 ML SYRINGE SUBCUT SCH (10:58)
[2016-12-24] MEDS: DOCUSATE SODIUM 100 MG CAPSULE PO SCH ×2 (13:27→21:14)
[2016-12-24] MEDS: DUTASTERIDE 0.5 MG CAPSULE PO SCH (13:27)
[2016-12-24] MEDS: ISONIAZID 300 MG TABLET PO SCH (13:27)
[2016-12-24] MEDS: TAMSULOSIN 0.4 MG CAPSULE PO SCH (13:29)
[2016-12-24] MEDS: METOPROLOL SUCCINATE XL 50 MG TABLET PO SCH (13:29)
[2016-12-24] MEDS: GABAPENTIN 300 MG CAPSULE PO SCH (13:29)
[2016-12-24] MEDS: PYRIDOXINE 50 MG TABLET PO SCH (13:30)
[2016-12-24] MEDS: MULTIVITAMIN (INTRINSIC) CAPSULE PO SCH ×2 (13:30→21:15)
[2016-12-24] MEDS: SODIUM HYPOCHLORITE 0.25% IRRIG 473 ML BOTTLE TOP SCH (13:30)
[2016-12-25 03:50] LABS: Allen Test Positive
[2016-12-25 03:51] LABS: ABG Base Excess 1.7 MMOL/L (-2.5-2.5); ABG Oxygen Saturation 98.4 % (95-100); ABG PCO2 39.3 MM HG (35-48); ABG PH 7.438 (7.35-7.45); ABG PO2 127.2 MM HG (80-95); ABG TCO2 27.2 MMOL/L (23-27)
[2016-12-25 04:35] LABS: Basophils # 0.1 10*3/uL (0.0-0.2); Basophils % 1.2 % (0.0-0.8); Eosinophils # 0.4 10*3/uL (0.0-0.87); Eosinophils % 3.5 % (0.00-10.9); Hematocrit 27.4 VOL% (42.0-52.0); Immature Granulocytes % 0.7 %; Immature Granulocytes Absolute 0.07 #; Lymphocytes # 1.8 10*3/uL (1.4-4.0); Lymphocytes % 17.9 % (21.2-54.2); Mean Corpuscular HGB Conc 32.8 GM/DL (32-36); Mean Corpuscular Hemoglobin 27 PG (27-34); Mean Corpuscular Volume 82.8 FL (87-102); Mean Platelet Volume 9.8 FL (9.6-12.0); Monocytes # 0.8 10*3/uL (0.11-0.8); Monocytes % 7.5 % (1.7-12.7); Neutrophils # 7.1 10*3/uL (1.4-7.4); Neutrophils % 69.2 % (38.7-73.9); Platelet Count 397 T/CUMM (130-400); Red Blood Count 3.31 MC/CUMM (3.8-5.5); Red Cell Distribution Width 17.7 % (9.3-17.3); White Blood Count 10.2 T/CUMM (4-12)
[2016-12-25 05:04] LABS: Calcium 7.7 MG/DL (8.5-10.1); Magnesium 1.8 MG/DL (1.8-2.4); Osmolality,Calculated 285.3 MOS/KG (273-304); Potassium 3.6 MMOL/L (3.5-5.1)
--- NOTE | 2016-12-25 08:12 | XRay Report ---
XR chest 1V portable Indication: Status post extubation. Comparison: Chest x-ray 12/24/2016 Technique: Portable AP chest was performed. Findings: Patient is rotated to the right. Endotracheal tube has been removed. Heart size remains normal. Mild ectasia of the thoracic aorta is demonstrated. There is elevation of right hemidiaphragm on today's study likely reflective positioning as well as inspiration. Lungs demonstrate nonspecific interstitial prominence likely chronic. Bones and soft tissues are stable. Impression: 1. Chronic appearing interstitial stranding is present bilaterally. Overall appearance of chest suggests little change given the difference in technique and position. 2. Interval extubation. 12/25/2016 8:08 AM PROCEDURE INTERPRETED AT [facility] DEPARTMENT OF RADIOLOGY Final Report Signed by: Dr. Shady Dennis
[2016-12-25] MEDS: DEXTROSE 5% NACL 0.9% 1,000 ML IV SCH ×2 (08:19→20:32)
[2016-12-25] MEDS: PIPERACILLIN/TAZOBACTAM 3,375 MG in SODIUM CHLORIDE 0.9% 100 ML IV SCH ×2 (08:29→20:32)
[2016-12-25] MEDS: ENOXAPARIN 30 MG/0.3 ML SYRINGE SUBCUT SCH (08:29)
[2016-12-25] MEDS: PANTOPRAZOLE 40 MG VIAL IV SCH (08:30)
[2016-12-25] MEDS: GABAPENTIN 300 MG CAPSULE PO SCH (08:30)
[2016-12-25] MEDS: TAMSULOSIN 0.4 MG CAPSULE PO SCH (08:30)
[2016-12-25] MEDS: DOCUSATE SODIUM 100 MG CAPSULE PO SCH ×2 (08:30→20:32)
[2016-12-25] MEDS: DUTASTERIDE 0.5 MG CAPSULE PO SCH (08:30)
[2016-12-25] MEDS: METOPROLOL SUCCINATE XL 50 MG TABLET PO SCH ×2 (08:30→09:50)
[2016-12-25] MEDS: PYRIDOXINE 50 MG TABLET PO SCH (08:31)
[2016-12-25] MEDS: MULTIVITAMIN (INTRINSIC) CAPSULE PO SCH ×2 (08:31→20:32)
--- NOTE | 2016-12-25 08:53 | Pulmonology Progress Note ---
Pulmonary - PN: Subj Interval history: This is a 71-year-old male patient whom I saw in pulmonary consultation on 2016. My impressions were. 1. Postop mechanical ventilation. Slow to wake up. 2. Postop debridement of sacral wound 3. Infected skin wounds 4. Chronic renal failure 5. Anemia 6. COPD. 7. See past history 12/25/2016. Patient was extubated without difficulty on 12/24/2016. Today he is stable in no apparent distress. His follow-up chest x-ray shows his right lung is smaller than his left. I do not see any masses infiltrates or pulmonary edema. CBC is stable. ABGs on FiO2 28% shows a pH 7.43, PCO2 of 39.3, PO2 of 127.2 and a bicarb of 26 electrolytes normal. Creatinine is dropped from 4.2- 3.90 with a BUN of 30. Labs been reviewed. Medicines have been reviewed. Physical exam. Vital signs. See below Psychiatric. Alert Neurologic. Moves all fours Neck. Symmetrical no meningismus Lymphatics. No submandibular cervical supraclavicular or epitrochlear adenopathy Chest. Clear Heart. No gallop Abdomen. Nondistended Extremities. Nothing to suggest deep venous thrombophlebitis The remainder the physical exam is negative Plan. 12/24/2006 1. We will decrease the patient's IMV to 6 once he wakes up and begins to breathe will go to a T-tube and extubating when he is strong enough. If he does not do well will go with a weaning protocol as well as a physical therapy protocol 2. No other changes made at this point 12/25/2016 1. Continue present regimen. 2. Chest x-ray and ABGs in the morning. Exam (Progress Note) - Constitutional Vitals: Period Temp Pulse Resp BP Sys/[place]cal[place] Pulse Ox Last 24 Hr 97.0 F-99.0 F 52-85 11-19 108-155/58-88 99-100 Results - Labs CBC & BMP: 12/25/16 04:00 12/25/16 04:00
--- NOTE | 2016-12-25 11:32 | Event Note ---
He is stable status post diverting colostomy. He has no complaints. He has no increased work of bleeding and no complaints of abdominal pain. His vital signs are stable. I think he should be okay for transfer to the floor today.
[2016-12-25] MEDS: SODIUM HYPOCHLORITE 0.25% IRRIG 473 ML BOTTLE TOP SCH (12:50)
--- NOTE | 2016-12-25 13:36 | Nephrology Progress Note ---
Nephrology - PN: Subj Interval history: He has been extubated since yesterday. He appears comfortable. Exam (PN)-Nephrology - Vital Signs Vital signs: Period Temp Pulse Resp BP Sys/[place] Pulse Ox Last 24 Hr 97.0 F-99.0 F 49-85 11-19 108-150/58-83 98-100 Exam: Gen.: Alert and oriented x3. ENT: Pupils equal round reactive to light. EOMs intact. Mucous membranes moist. Neck: Supple. No JVD or bruit. Cardiovascular: Regular rate and rhythm. No murmur rub or gallop Lungs: Clear Abdomen: Soft. Nontender. Positive bowel sounds. No organomegaly Extremities: No edema - Lab 12/25/16 04:00 12/25/16 04:00 Most recent lab results ABG pH 7.438 (7.35-7.45) 12/25/16 03:40 ABG pCO2 39.3 MM HG (35-48) 12/25/16 03:40 ABG pO2 127.2 MM HG (80-95) H 12/25/16 03:40 ABG HCO3 26.0 MMOL/L (20-26) 12/25/16 03:40 ABG O2 Saturation 98.4 % (95-100) 12/25/16 03:40 Calcium 7.7 MG/DL (8.5-10.1) L 12/25/16 04:00 Phosphorus 4.3 MG/DL (2.5-4.9) 12/24/16 02:23 Magnesium 1.8 MG/DL (1.8-2.4) 12/25/16 04:00 Assessment and Plan (1) CKD (chronic kidney disease) stage 5, GFR less than 15 ml/min Status: Chronic Assessment and plan: 71-year-old man with: * CRF stage V. Renal function slightly improved. Volume status acceptable * Decubitus ulcer. Status post diverting colostomy * Anemia Current Visit: Yes (2) Anemia Problem details: Mostly likely related to renal dz. Status: Acute Current Visit: Yes (3) Decubitus ulcer of left ischium, stage 4 Status: Acute Current Visit: Yes
[2016-12-26 03:58] LABS: ABG Base Excess -0.1 MMOL/L (-2.5-2.5); ABG HCO3 24.4 MMOL/L (20-26); ABG Oxygen Saturation 99.3 % (95-100); ABG PCO2 41.5 MM HG (35-48); ABG PH 7.386 (7.35-7.45); ABG TCO2 23.3 MMOL/L (23-27)
--- NOTE | 2016-12-26 07:56 | Anesthesia Post-Op ---
Anesthesia Post OP - Post Ansesthetic Evaluation Patient seen in post op: Yes Resp: within normal limits CV: within normal limits Mental: within normal limits Temp: within normal limits [id number]: within normal limits Nausea and Vomiting: within normal limits Pain: within normal limits
--- NOTE | 2016-12-26 08:33 | XRay Report ---
XR chest 1V portable Indication: Ventilator Comparison: Chest x-ray dated December 25, 2016 Technique: Single frontal view of the chest. Findings: Continued cardiomegaly. Chronic change of the lungs suggested. Mild linear atelectasis of the right lower lung. Mild atelectasis/consolidation of the left lung base with probable small left pleural fluid and elevation of left hemidiaphragm. Visualized osseous and surrounding soft tissue structures appear grossly unchanged. IMPRESSION: As above. PROCEDURE INTERPRETED AT [facility] DEPARTMENT OF RADIOLOGY Final Report Signed by: Dr Issac Hebert
[2016-12-26] MEDS: PIPERACILLIN/TAZOBACTAM 3,375 MG in SODIUM CHLORIDE 0.9% 100 ML IV SCH ×2 (08:47→21:58)
--- NOTE | 2016-12-26 09:40 | Pulmonology Progress Note ---
Pulmonary - PN: Subj Interval history: This is a 71-year-old male patient whom I saw in pulmonary consultation on 2016. My impressions were. 1. Postop mechanical ventilation. Slow to wake up. 2. Postop debridement of sacral wound 3. Infected skin wounds 4. Chronic renal failure 5. Anemia 6. COPD. 7. See past history 12/25/2016. Patient was extubated without difficulty on 12/24/2016. Today he is stable in no apparent distress. His follow-up chest x-ray shows his right lung is smaller than his left. I do not see any masses infiltrates or pulmonary edema. CBC is stable. ABGs on FiO2 28% shows a pH 7.43, PCO2 of 39.3, PO2 of 127.2 and a bicarb of 26 electrolytes normal. Creatinine is dropped from 4.2- 3.90 with a BUN of 30. 12/26/2016. Patient continues to do well from a pulmonary standpoint. His chest x-ray is normal. There are no infiltrates and there is no congestive heart failure. ABGs on FiO2 28% shows a pH of 7.386, PCO2 41.5, PO2 of 152 and a bicarb of 24.4. Patient is alert and oriented but not talkative. His chest is clear and he has no difficulty breathing. Labs been reviewed. Medicines have been reviewed. Physical exam. Vital signs. See below Psychiatric. Alert General. Comfortable in no distress Neurologic. Moves all fours Neck. Symmetrical no meningismus Lymphatics. No submandibular cervical supraclavicular or epitrochlear adenopathy Chest. Clear Heart. No gallop Abdomen. Nondistended Extremities. Nothing to suggest deep venous thrombophlebitis The remainder the physical exam is negative Plan. 12/24/2006 1. We will decrease the patient's IMV to 6 once he wakes up and begins to breathe will go to a T-tube and extubating when he is strong enough. If he does not do well will go with a weaning protocol as well as a physical therapy protocol 2. No other changes made at this point 12/25/2016 1. Continue present regimen. 2. Chest x-ray and ABGs in the morning. 12/26/2016. 1. Patient is doing well very well from a pulmonary standpoint 2. I will sign off. Please reconsult whenever needed. Exam (Progress Note) - Constitutional Vitals: Period Temp Pulse Resp BP Sys/[place] Pulse Ox Last 24 Hr 96.8 F-97.9 F 49-80 14-20 131-164/75-102 97-100 Results - Labs CBC & BMP: 12/25/16 04:00 12/25/16 04:00
--- NOTE | 2016-12-26 09:42 | Nephrology Progress Note ---
Nephrology - PN: Subj Interval history: He denies SOB/pain. Exam (PN)-Nephrology - Vital Signs Vital signs: Period Temp Pulse Resp BP Sys/[place] Pulse Ox Last 24 Hr 96.8 F-97.9 F 49-80 14-20 131-164/75-102 97-100 - General Appearance General appearance: cachectic, chronically ill EENT: ATNC, PERRL, mucous membranes dry, hearing intact, vision intact Neck: no JVD, no thyromegaly Respiratory: no kyphosis, clear Cardiology: no murmurs, no rub, no edema Gastrointestinal: normoactive bowel sounds, no tenderness Integumentary: no rash, warm and dry Neurologic: no focal deficit, no asterixis Musculoskeletal: no deformities, no erythema Psychiatric: mood/affect appropriate, cooperative - Lab 12/25/16 04:00 12/25/16 04:00 Most recent lab results ABG pH 7.386 (7.35-7.45) 12/26/16 03:50 ABG pCO2 41.5 MM HG (35-48) 12/26/16 03:50 ABG pO2 152.0 MM HG (80-95) H 12/26/16 03:50 ABG HCO3 24.4 MMOL/L (20-26) 12/26/16 03:50 ABG O2 Saturation 99.3 % (95-100) 12/26/16 03:50 Calcium 7.7 MG/DL (8.5-10.1) L 12/25/16 04:00 Phosphorus 4.3 MG/DL (2.5-4.9) 12/24/16 02:23 Magnesium 1.8 MG/DL (1.8-2.4) 12/25/16 04:00 Assessment and Plan (1) CKD (chronic kidney disease) stage 5, GFR less than 15 ml/min Problem details: No indication for renal replacement therapy at this time. Status: Chronic Current Visit: Yes (2) Anemia Problem details: Mostly likely related to renal dz. Status: Acute Assessment and plan: Continue conservative management. eGFR 20cc/min with creatinine 3.9. CKD stage 4. Current Visit: Yes
[2016-12-26] MEDS: ISONIAZID 300 MG TABLET PO SCH (10:08)
[2016-12-26] MEDS: MULTIVITAMIN (INTRINSIC) CAPSULE PO SCH ×2 (10:08→21:59)
[2016-12-26] MEDS: ENOXAPARIN 30 MG/0.3 ML SYRINGE SUBCUT SCH (10:08)
[2016-12-26] MEDS: METOPROLOL SUCCINATE XL 50 MG TABLET PO SCH (10:08)
[2016-12-26] MEDS: DUTASTERIDE 0.5 MG CAPSULE PO SCH (10:08)
[2016-12-26] MEDS: PYRIDOXINE 50 MG TABLET PO SCH (10:09)
[2016-12-26] MEDS: ETHAMBUTOL 400 MG TABLET PO SCH (10:09)
[2016-12-26] MEDS: GABAPENTIN 300 MG CAPSULE PO SCH (10:10)
[2016-12-26] MEDS: DOCUSATE SODIUM 100 MG CAPSULE PO SCH ×2 (10:10→21:59)
[2016-12-26] MEDS: TAMSULOSIN 0.4 MG CAPSULE PO SCH (10:10)
[2016-12-26] MEDS: PANTOPRAZOLE 40 MG VIAL IV SCH (10:10)
[2016-12-26] MEDS: SODIUM HYPOCHLORITE 0.25% IRRIG 473 ML BOTTLE TOP SCH (10:10)
--- NOTE | 2016-12-26 14:08 | General Surgery Progress Note ---
Assessment and Plan - Time spent with patient Time spent with patient: Less than 30 minutes (1) Decubitus ulcer of left ischium, stage 4 Status: Acute Assessment and plan: 12/26/2016. Sacral and left ischium decubitus ulcers are stable postop. We will continue local care and antibiotics. Current Visit: Yes (2) Colostomy in place Status: Acute Assessment and plan: 12/26/2016. Stable postop creation of left lower quadrant diverting colostomy. Will plan to get dietary involved to help us with his nutritional care and overhead and allow him to advance his diet. Awaiting evaluation for [facility] for continuation of care. Current Visit: Yes Subjective Patient reports: Present: no new complaints Exam - Constitutional Vitals: Period Temp Pulse Resp BP Sys/[place] Pulse Ox Last 24 Hr 96.8 F-97.9 F 49-80 12-20 141-164/75-102 97-100 General appearance: no acute distress, under weight - Respiratory Respiratory exam: Absent: rales, wheezes - Cardiovascular Cardiovascular exam: Present: RRR - GI/Abdominal GI/Abdominal exam: Present: other (Abdomen soft. Left lower quadrant ostomy stoma is pink. There is scant brown stool in the ostomy bag. No distention, no unusual tenderness,) - Back Exam Back exam: Present: other (Left issue and sacral decubitus ulcers are pale. There is no new necrotic tissue.) Results - Labs CBC & BMP: 12/25/16 04:00 12/25/16 04:00 Lab Results: I have reviewed the past 24 hour labs (Labs essentially stable.) Quality Measures - VTE Contraindication to Pharmacological VTE Prophylaxis: High Risk of Bleeding
[2016-12-26] MEDS: DEXTROSE 5% NACL 0.9% 1,000 ML IV SCH (17:33)
[2016-12-27] MEDS: DEXTROSE 5% NACL 0.9% 1,000 ML IV SCH ×3 (06:40→20:16)
[2016-12-27] MEDS: PIPERACILLIN/TAZOBACTAM 3,375 MG in SODIUM CHLORIDE 0.9% 100 ML IV SCH ×2 (08:25→20:15)
--- NOTE | 2016-12-27 08:25 | XRay Report ---
XR chest 1V portable Indication: Ventilator Comparison: Chest x-ray dated December 26, 2016 Technique: Single frontal view of the chest. Findings: The cardiomediastinal silhouette is stable in configuration. Continued cardiomegaly. Chronic change of lungs. Small left pleural effusion again suggested. Visualized osseous and surrounding soft tissue structures appear grossly unchanged. IMPRESSION: No significant interval change. PROCEDURE INTERPRETED AT [facility] DEPARTMENT OF RADIOLOGY Final Report Signed by: Dr Issac Hebert
[2016-12-27] MEDS: GABAPENTIN 300 MG CAPSULE PO SCH (10:12)
[2016-12-27] MEDS: PYRIDOXINE 50 MG TABLET PO SCH (10:12)
[2016-12-27] MEDS: ENOXAPARIN 30 MG/0.3 ML SYRINGE SUBCUT SCH (10:12)
[2016-12-27] MEDS: TAMSULOSIN 0.4 MG CAPSULE PO SCH (10:13)
[2016-12-27] MEDS: DOCUSATE SODIUM 100 MG CAPSULE PO SCH ×2 (10:13→20:20)
[2016-12-27] MEDS: DUTASTERIDE 0.5 MG CAPSULE PO SCH (10:13)
[2016-12-27] MEDS: METOPROLOL SUCCINATE XL 50 MG TABLET PO SCH (10:13)
[2016-12-27] MEDS: SODIUM HYPOCHLORITE 0.25% IRRIG 473 ML BOTTLE TOP SCH (10:13)
[2016-12-27] MEDS: MULTIVITAMIN (INTRINSIC) CAPSULE PO SCH ×2 (10:13→20:19)
[2016-12-27] MEDS: PANTOPRAZOLE 40 MG VIAL IV SCH (10:14)
--- NOTE | 2016-12-27 14:40 | Nephrology Progress Note ---
Nephrology - PN: Subj Interval history: Pt asleep on rounds. He denies SOB/pain. No reported problems with LLQ ostomy. No renal labs today. Creatinine 3.9 yesterday for calculated eGFR 20cc/min, CKD stage 4. Exam (PN)-Nephrology - Vital Signs Vital signs: Period Temp Pulse Resp BP Sys/[place] Pulse Ox Last 24 Hr 96.7 F-98.5 F 52-61 16-18 128-155/73-89 100-100 - General Appearance General appearance: cachectic, chronically ill EENT: ATNC, PERRL, mucous membranes moist, hearing intact, vision intact Neck: no JVD, no thyromegaly Respiratory: no kyphosis, clear Cardiology: no murmurs, no rub, no edema Gastrointestinal: normoactive bowel sounds, no tenderness Integumentary: no rash, warm and dry Neurologic: no focal deficit, no asterixis Musculoskeletal: no deformities, no erythema Psychiatric: mood/affect appropriate, cooperative - Lab 12/25/16 04:00 12/25/16 04:00 Most recent lab results ABG pH 7.386 (7.35-7.45) 12/26/16 03:50 ABG pCO2 41.5 MM HG (35-48) 12/26/16 03:50 ABG pO2 152.0 MM HG (80-95) H 12/26/16 03:50 ABG HCO3 24.4 MMOL/L (20-26) 12/26/16 03:50 ABG O2 Saturation 99.3 % (95-100) 12/26/16 03:50 Calcium 7.7 MG/DL (8.5-10.1) L 12/25/16 04:00 Phosphorus 4.3 MG/DL (2.5-4.9) 12/24/16 02:23 Magnesium 1.8 MG/DL (1.8-2.4) 12/25/16 04:00 Assessment and Plan (1) CKD (chronic kidney disease) stage 5, GFR less than 15 ml/min Problem details: No indication for renal replacement therapy at this time. Status: Chronic Assessment and plan: Continue current conservative management. Current Visit: Yes
[2016-12-28] MEDS: DEXTROSE 5% NACL 0.9% 1,000 ML IV SCH ×2 (06:37→10:18)
--- NOTE | 2016-12-28 09:29 | Nephrology Progress Note ---
Nephrology - PN: Subj Interval history: Pt asleep on rounds. He denies SOB/pain. No renal labs today. Last creatinine 3.9 for calculated eGFR 20cc/min, CKD stage 4. Exam (PN)-Nephrology - Vital Signs Vital signs: Period Temp Pulse Resp BP Sys/[place] Pulse Ox Last 24 Hr 97.0 F-98.8 F 59-84 16-20 128-170/70-91 94-100 - General Appearance General appearance: cachectic, chronically ill EENT: ATNC, PERRL, mucous membranes dry, hearing intact, vision intact Neck: no JVD, no thyromegaly Respiratory: no kyphosis, clear Cardiology: no murmurs, no rub, no edema Gastrointestinal: normoactive bowel sounds, no tenderness (LLQ ostomy site pink) Integumentary: no rash, warm and dry Neurologic: no focal deficit, no asterixis, disoriented Musculoskeletal: no deformities, no erythema Psychiatric: mood/affect appropriate, cooperative - Lab 12/25/16 04:00 12/25/16 04:00 Most recent lab results ABG pH 7.386 (7.35-7.45) 12/26/16 03:50 ABG pCO2 41.5 MM HG (35-48) 12/26/16 03:50 ABG pO2 152.0 MM HG (80-95) H 12/26/16 03:50 ABG HCO3 24.4 MMOL/L (20-26) 12/26/16 03:50 ABG O2 Saturation 99.3 % (95-100) 12/26/16 03:50 Calcium 7.7 MG/DL (8.5-10.1) L 12/25/16 04:00 Phosphorus 4.3 MG/DL (2.5-4.9) 12/24/16 02:23 Magnesium 1.8 MG/DL (1.8-2.4) 12/25/16 04:00 Assessment and Plan (1) CKD (chronic kidney disease) stage 4, GFR 15-29 ml/min Problem details: No indication for renal replacement therapy. Status: Acute Assessment and plan: Renal labs for am ordered. Continue current conservative management. Current Visit: Yes
--- NOTE | 2016-12-28 09:41 | Discharge Summary ---
Hospital Course - Hospital Course Hospital Course: Discharge summary: Discharge diagnosis: 1. Large left ischial decubitus ulcer stage IV 2. Sacral decubitus ulcer stage IV 3. 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 Moderate malnutrition 7. Renal insufficiency 8. Anemia chronic disease Procedure: 1. Excisional debridement of left ischial decubitus ulcer in sacral decubitus ulcer 2. Left sigmoid diverting loop colostomy Surgeon Dr. Carroll Consultants Dr. 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 It still unclear what the etiology of this might of been. He has been in a couple of facilities and I think at home by history before we saw him at the wound center. At the wound center when we first saw him he had a large left ischial decubitus ulcer in the sacral decubitus ulcer with a good bit of necrotic tissue in it. We brought him in through same day surgery to debride this area but he had an anemia with elevated creatinines and we had to delay the surgery day before we can get him back to the OR to get things under control. Dr. Boles saw him and felt that he might have the process causing this but has not been able to find anything specifically to cause the renal insufficiency at this time. At this point we took him to surgery we debrided this issue will decubitus ulcer in the sacral decubitus ulcer having him go down to bone and involving a large area in the left ischial area. This was really close to the anal area and I did not feel like that we are going to be able to get this thing healed up because of fecal soiling we talked to the family about this process and the were agreeable to a loop diverting colostomy. He was taken back to the OR where he underwent a loop sigmoid colostomy and has been doing well with it so far with a good function. Patient is eating again at this time will resume wound care to the ulcers. His kidney function has improved somewhat with a creatinine today of 2.9. His anemia is been treated with a couple of transfusions but it is stable now with hematocrit of 27. He is on IV antibiotics for the cultures that were grown out of the wounds. The postop from his initial surgery had to go to the surgery for the colostomy to the ICU where he had to be on the ventilator for 24 hours in order to be extubated safely. At this point we are going to continue care try and establish to care we need to get him to [facility] for additional wound care and treatment and education to the family on the care. - Time spent with patient Time with patient DS: Less than 30 minutes Diagnosis - Discharge Diagnosis (1) Decubitus ulcer of left ischium, stage 4 Status: Chronic (2) Decubitus ulcer of sacral region, unstageable Status: Chronic (3) Renal insufficiency syndrome Status: Chronic (4) Hyperkalemia, diminished renal excretion Status: Resolved (5) Paraplegia Status: Chronic (6) Anemia Status: Chronic Specialty Discharge - Follow Up or Referrals Follow up with: Navid Carroll MD [Physician] - (We will follow her at [facility]) Discharge Plan - Discharge Data Disposition: Disch/Xfer to Custodial Hos Condition at Discharge: Stable Discharge Diet: advance to your usual diet Activity: other (Bedbound need to turn from side to side every 2 hours) Hygiene: other (Will have to be bed bath) Weight Bearing at Discharge: non-weight bearing Contact your physician if you experience:: fever over 101, Nausea/Vomiting, Bleeding, pain uncontrolled by pain medications - Discharge Medications New Acetaminophen Tab [Tylenol Tab] 650 mg PO Q6H PRN tablet PRN Reason: Pain Mild (1-3) And/Or Fever Enoxaparin [Lovenox] 30 mg SUBCUT Q24H syringe HYDROcodone/ACETAMIN 7.5-325 [[place] 7.5-325] 1 tablet PO Q4H PRN tablet PRN Reason: Pain Moderate (4-7) HYDROmorphone INJ [Dilaudid Inj] 1 mg IV Q2H PRN vial PRN Reason: Pain Severe (8-10) Pantoprazole Inj [Protonix Inj] 40 mg IV DAILY vial Sodium Hypochlorite 0.25% Irr [Dakins 1/2 Strength 0.25% Soln] 1 applic TOP DAILY applic Docusate Sodium Cap [Colace Cap] 100 mg PO BID capsule Piperacillin/Tazobactam [Zosyn] 3,375 mg IV Q12H vial Continue Ethambutol HCl [Myambutol] 1,200 mg PO MOWEFR Pyridoxine HCl (Vitamin B6) [Vitamin B-6] 25 mg PO DAILY Isoniazid 900 mg PO MOWEFR Cholecalciferol (Vitamin D3) [Vitamin D3] 2,000 unit PO DAILY Azithromycin 500 mg PO MOWEFR Tamsulosin [Flomax] 0.4 mg PO DAILY Metoprolol Succinate Xl [Toprol Xl] 50 mg PO BEDTIME rifAMPin [Rifampin] 900 mg PO MOWEFR Dutasteride [Avodart] 0.5 mg PO BEDTIME Gabapentin Cap/Tab [Neurontin Cap/Tab] 300 mg PO BEDTIME Feracon 1 tablet PO BID - Follow Up or Referral - Forms/Instructions Exam - Constitutional Vitals: Period Temp Pulse Resp BP Sys/[place] Pulse Ox Last 24 Hr 97.0 F-98.8 F 59-84 16-20 128-170/70-91 94-100 General appearance: mild distress - Head Head exam: Present: normal inspection - ENT ENT exam: Present: normal exam - Neck Neck exam: Present: normal inspection - Respiratory Respiratory exam: Present: clear to auscultation bilaterally, rales - Cardiovascular Cardiovascular exam: Present: regular rate and rhythm - GI/Abdominal GI/Abdominal exam: Present: hypoactive bowel sounds, soft, other (Colostomy looks good in the left lower quadrant with some drainage) - Extremities Exam Extremities exam: Present: other (Legs are in good condition at this point with no breakdown of the heels at this point.) - Back Exam Back exam: Present: other (Sacral ulcer is flat and fairly clean but still has a little tissue in the center that may eventually need for further debridement. The initial ulcer is large got some granulating tissue goes down to bone no necrotic tissue seen at this time.) - Neurological Exam Neurological exam: Present: altered - Psychiatric Psychiatric exam: Present: other - Skin Skin exam: Present: normal color, warm, dry Discharge Results Procedures and tests throughout hospitalization: Pending Orders 12/17/16 18:50 Occult Blood, Stool Routine 12/29/16 04:00 CBC [Comp Blood Count Auto Diff] IN AM Renal Function Panel IN AM DS: Provider Date of admission: 12/16/16 09:33 Primary care physician: . No PCP Attending physician on admission: Navid Carroll MD Consults: 12/16/16 09:33 Consult to Physician [CONS] Routine Comment: Consulting Provider: Sung Graf Consulting Provider Notified: Yes When should Consulting Provider be notified: Now Consult to Specialist Group: Nephrology When should Consulting Provider be notified: Now Person Notified: dr. graf Consult Notification Comment: Patient with elevated creatinine and potassium in range of 6. Please evaluate help treat. 12/16/16 09:38 Consult to Case Mgmt/Social Srvs [CONS] Routine Reason for Case Mgmt/Social Srvs: Rehab Other Consult Comment: Home situation Consult to Wound Care - [place] [CONS] Routine Reason for Wound Care: Wound Care Management Consult Comment: ischial and sacral wounds 12/16/16 09:47 Consult to Dietitian [CONS] Routine Reason for Dietitian: Dietary Consult Consult Comment: determine best diet for patient 12/21/16 14:10 Consult to Anesthesiology [CONS] Routine Consulting Provider: Reason for Anesthesiology: Pre-op Clearance 12/23/16 15:20 Consult to Physician [CONS] Routine Comment: Consulting Provider: Cal Lopez Consulting Provider Notified: Yes Consult to Specialist Group: Pulmonology When should Consulting Provider be notified: Now Person Notified: Dr. Lopez Date Notified: 12/23/16 Time Notified: 17:07 Consult Notification Comment: Debilitated male with large decubitus ulcers who just underwent a diverting colostomy and we had to leave on the ventilator postop. Please help us manage the ventilator and the endotracheal tube thank you 12/26/16 14:12 Consult to Dietitian [CONS] Routine Reason for Dietitian: Diet Recommendations Discharging clinician: Navid Carroll MD Expected date of discharge: 12/28/16
[2016-12-28] MEDS: PIPERACILLIN/TAZOBACTAM 3,375 MG in SODIUM CHLORIDE 0.9% 100 ML IV SCH (09:51)
[2016-12-28] MEDS: PANTOPRAZOLE 40 MG VIAL IV SCH (09:57)
[2016-12-28] MEDS: ENOXAPARIN 30 MG/0.3 ML SYRINGE SUBCUT SCH (09:57)
[2016-12-28] MEDS: ISONIAZID 300 MG TABLET PO SCH (10:10)
[2016-12-28] MEDS: PYRIDOXINE 50 MG TABLET PO SCH (10:10)
[2016-12-28] MEDS: TAMSULOSIN 0.4 MG CAPSULE PO SCH (10:10)
[2016-12-28] MEDS: MULTIVITAMIN (INTRINSIC) CAPSULE PO SCH (10:11)
[2016-12-28] MEDS: ETHAMBUTOL 400 MG TABLET PO SCH (10:11)
[2016-12-28] MEDS: GABAPENTIN 300 MG CAPSULE PO SCH (10:11)
[2016-12-28] MEDS: DUTASTERIDE 0.5 MG CAPSULE PO SCH (10:11)
[2016-12-28] MEDS: METOPROLOL SUCCINATE XL 50 MG TABLET PO SCH (10:15)
[2016-12-28] MEDS: SODIUM HYPOCHLORITE 0.25% IRRIG 473 ML BOTTLE TOP SCH (10:17)
[2016-12-28] MEDS: DOCUSATE SODIUM 100 MG CAPSULE PO SCH (10:17)
[2016-12-28 11:51] VITALS: BP 140/77
== END 2016-12-28 15:40 | DRG 579 ==
LOC: N.OR 05:52 → N.SDSINP 05:58 → N.3E 09:33 → N.ICU 12-23 18:07 → N.3E 12-25 15:08
PROVIDERS: ADMIT Specialist; ATTEND Specialist

== ENCOUNTER 2017-01-18 06:43 | Observation (INO) ==
--- NOTE | 2017-01-18 08:26 | History and Physical Update ---
History and Physical Update - History and Physical H&P was reviewed, the patient examined and there: are no changes in the patients condition since last H&P was completed.
[2017-01-18] MEDS: LACTATED RINGERS 1,000 ML IV SCH ×2 (08:50→18:26)
[2017-01-18] MEDS ORDERED: LIDOCAINE 2% 5 ML VIAL ONE (16:35)
[2017-01-18] MEDS ORDERED: PHENYLEPHRINE 1 MG/10 ML SYRINGE IV ONE (16:35)
[2017-01-18] MEDS ORDERED: ROCURONIUM 100 MG/10 ML VIAL IV ONE (16:35)
[2017-01-18] MEDS ORDERED: GLYCOPYRROLATE 0.4 MG/2 ML VIAL ONE (16:35)
[2017-01-18] MEDS ORDERED: ONDANSETRON 4 MG/2 ML VIAL ONE (16:35)
[2017-01-18] MEDS ORDERED: DEXAMETHASONE 10 MG/1 ML VIAL ONE (16:35)
[2017-01-18] MEDS ORDERED: KETOROLAC 30 MG/1 ML VIAL ONE (16:35)
[2017-01-18] MEDS ORDERED: NEOSTIGMINE 10 MG/10 ML VIAL ONE (16:35)
[2017-01-18] MEDS ORDERED: HYDROmorphone 2 MG/1 ML VIAL IV PRN (18:44)
[2017-01-18] MEDS ORDERED: ACETAMINOPHEN 325 MG TABLET PO PRN (18:44)
[2017-01-18] MEDS ORDERED: oxyCODONE/ACETAMINOPHEN 5-325 MG TABLET PO PRN (18:44)
[2017-01-18] MEDS ORDERED: [UNRECOGNIZED DRUG - OTHER] TOP SCH (19:00)
[2017-01-18] MEDS ORDERED: PIPERACILLIN/TAZOBACTAM 3,375 MG VIAL IV SCH (19:00)
--- NOTE | 2017-01-18 19:03 | Operative Note ---
Date of procedure: 01/18/17 Pre-op diagnosis: Ischemic right foot due to underlying peripheral vascular disease Post-op diagnosis: same Procedure: Operative note: Preoperative diagnosis: Ischemic right foot secondary to underlying peripheral arterial disease Postoperative diagnosis: Same Procedure with a right AKA amputation Surgeon Dr. Carroll [employer] Cutter Finisher Carli Carrillo, SWIMMER ACNP Anesthesia General endotracheal Brief history: 71-year-old -[place] male who we have been seen in [facility] for ulcers of the left issue him and sacral area that have been healing up very nicely. While down there he began to develop ischemic changes of the right foot of the toes and the lateral aspect in the heel. We did some back vascular studies that showed significant decrease in the pressures and the flow pattern into the right lower extremity. He was bedridden and had contractures of that knee and his creatinine would not permit on arteriogram to be performed. After long discussion with the family the failed and were agreeable to go ahead with a amputation above the knee. Procedure: With patient prepped and draped in sterile fashion timeout and antibiotics completed approaches area of the right lower extremity. At that point time I created a fishmouth type of incision drawing it out onto the distal thigh just above the knee. We then took a knife with through the skin subtenons tissue around the entire part of the skin incision. Once we got through that and we went straight through laterally and on the surface of this to get through the muscle at this time at the level of the skin incision. Once we had gotten through laterally using light cauterization controlling bleeding in this area. We then went medial to go through the muscles and the tendons of this area. We went posteriorly to divide the hamstrings at that time. Once that was done and I begin to do careful dissection the medial part of the leg until I could identify first the artery which had a large plaque in it at this time almost completely occluded. We were able to get around it with a Nancy clamp and tied with a 2-0 Ethibond and a transfix a 2-0 Ethibond. Once we had that divided we divided the vein between Nancy clamps tying it with 2-0 Ethibond and transfix of 2-0 Ethibond. With those vascular factors under control and smaller vessels tied with 2-0 Ethibond in this area were able to find the nerve which were then pulled down firmly with a 2-0 Ethibond high on the nerve cut it sharply and allowed to retract. Once that was completed and were able to go to the rest of the posterior aspect of the muscle and tendons in order to get it free posteriorly. Once that was done then we began to divide the periosteum which had a good blood supply which we use light cauterization own. We then used a periosteal elevator to elevate periosteum up about 2 inches or more above the skin incision. We then used oscillating saw to cut the bone at this time tapering the upper part of it and smoothing the edges. Once that was completed and divided that we were able remove the leg at this time. At that point would begin to washed irrigated with saline solution and oversewed some other muscle bleeders with interrupted 2-0 Vicryl suture. With that in good shape then I pull the periosteum back over the bone sutured it with 2-0 Vicryl we then put 2- 0 Vicryl in the next layer of muscle across the wound over a Deacon-Hough drain. Once that layer was done then we closed the Vamshi's fascia with interrupted 2-0 Vicryl suture.. Once that layer was closed and we closed the skin with some interrupted 3-0 nylon sutures in vertical mattresses as retention type sutures and then closed the wrist with skin clips securing the drain in with 2-0 nylon. A bulky dressing was then applied. At that point we went up to the colostomy site and remove the bridge from underneath it At that time we then moved the patient to recovery Estimated blood loss 60-80 cc Sponge count correct 2 Drains one #10 Deacon-Hough Complications none Condition stable satisfactory Anesthesia: RADHA Surgeon / Physician: Navid Carroll [employer] Cutter Finisher: Carli Carrillo Estimated blood loss: other (60 cc) Specimens: other (Right lower extremity) Condition: stable Disposition: ICU Discharge Plan - Discharge Medications No Action Acetaminophen Tab [Tylenol Tab] 650 mg PO Q6H PRN tablet PRN Reason: Pain Mild (1-3) And/Or Fever Enoxaparin [Lovenox] 30 mg SUBCUT Q24H syringe HYDROcodone/ACETAMIN 7.5-325 [[place] 7.5-325] 1 tablet PO Q4H PRN tablet PRN Reason: Pain Moderate (4-7) HYDROmorphone INJ [Dilaudid Inj] 1 mg IV Q2H PRN vial PRN Reason: Pain Severe (8-10) Hydrophor 1 applic TOP DIRECTED raNITIdine HCl [Ranitidine HCl] 150 mg PO BID L. Acidophilus/Bulgaricus [Floranex Tablet] 1 tablet PO BID Tamsulosin [Flomax] 0.4 mg PO DAILY Metoprolol Succinate Xl [Toprol Xl] 50 mg PO DAILY Dutasteride [Avodart] 0.5 mg PO DAILY Gabapentin Cap/Tab [Neurontin Cap/Tab] 300 mg PO DAILY Feracon 1 tablet PO BID Docusate Sodium Cap [Colace Cap] 100 mg PO BID capsule Piperacillin/Tazobactam [Zosyn] 3,375 mg IV Q12H vial Clorpactin 2 gm TOP DIRECTED Vitamin B Complex 1 caplet DAILY - Follow Up or Referral - Forms/Instructions
[2017-01-18] MEDS ORDERED: MIDAZOLAM 2 MG/2 ML VIAL ONE (19:11)
[2017-01-18] MEDS ORDERED: fentaNYL 100 MCG/2 ML VIAL ONE (19:11)
[2017-01-18] MEDS ORDERED: SEVOFLURANE 1 UNIT/15 MINUTE INH ONE (19:12)
[2017-01-18] MEDS ORDERED: LACTATED RINGERS 1,000 ML IV ONE (19:12)
[2017-01-18 19:28] LABS: Hematocrit 28.1 VOL% (42.0-52.0); Hemoglobin 9.1 GM/DL (14.0-18.0)
[2017-01-18] MEDS: SODIUM CHLORIDE 0.9% 1,000 ML IV SCH (20:11)
[2017-01-18] MEDS: PIPERACILLIN/TAZOBACTAM 3,375 MG in SODIUM CHLORIDE 0.9% 100 ML IV SCH (20:11)
[2017-01-18] MEDS: DOCUSATE SODIUM 100 MG CAPSULE PO SCH (21:08)
[2017-01-18] MEDS: LACTOBACILLUS ACIDOPHILUS/BULGARICUS CAPLET PO SCH (21:08)
[2017-01-18] MEDS: FAMOTIDINE 20 MG TABLET PO SCH (21:08)
[2017-01-18] MEDS: IRON (CARBONYL)/VIT C/B12/FA TABLET PO SCH (21:08)
[2017-01-18] MEDS: SODIUM HYPOCHLORITE 0.25% IRRIG 473 ML BOTTLE TOP SCH (22:30)
[2017-01-19] MEDS: ceFAZolin 2,000 MG in PREMIX 1 EACH IV SCH ×2 (00:34→09:45)
[2017-01-19 01:26] LABS: Basophils % 0.2 % (0.0-0.8); Hematocrit 25.2 VOL% (42.0-52.0); Hemoglobin 8.2 GM/DL (14.0-18.0); Immature Granulocytes % 0.6 %; Immature Granulocytes Absolute 0.05 #; Lymphocytes # 0.6 10*3/uL (1.4-4.0); Lymphocytes % 7.2 % (21.2-54.2); Mean Corpuscular HGB Conc 32.5 GM/DL (32-36); Mean Corpuscular Hemoglobin 28 PG (27-34); Mean Corpuscular Volume 85.1 FL (87-102); Monocytes # 0.1 10*3/uL (0.11-0.8); Monocytes % 1.1 % (1.7-12.7); Neutrophils # 7.4 10*3/uL (1.4-7.4); Neutrophils % 90.9 % (38.7-73.9); Platelet Count 461 T/CUMM (130-400); Red Blood Count 2.96 MC/CUMM (3.8-5.5); Red Cell Distribution Width 19.9 % (9.3-17.3); White Blood Count 8.2 T/CUMM (4-12)
[2017-01-19 01:54] LABS: Osmolality,Calculated 287.3 MOS/KG (273-304); Potassium 3.9 MMOL/L (3.5-5.1)
[2017-01-19 02:19] LABS: Band Neutrophils 1 % (0-10); Lymphocytes 8 % (20-55); Myelocytes 1 %; Segmented Neutrophils 90 % (50-85); Total Cells Counted 100
[2017-01-19 02:22] LABS: Acanthocytes Few; Anisocytosis 1+; Hypochromasia 1+
[2017-01-19 02:23] LABS: Platelet Estimate Adequate
[2017-01-19] MEDS: SODIUM CHLORIDE 0.9% 1,000 ML IV SCH ×2 (07:03→10:36)
--- NOTE | 2017-01-19 08:48 | XRay Report ---
History short of breath Comparison 01/17/2017 Heart is normal in size. Patient is rotated Lungs are hyperexpanded There remain mild reticular and patchy opacities in the lung bases with slight improvement in the interval. Minimally more prominent infiltrate/atelectasis at the left base is present. Impression: Mild improvement with mild residual basilar infiltrate versus edema PROCEDURE INTERPRETED AT [facility] DEPARTMENT OF RADIOLOGY Final Report Signed by: Dr. Radha Soler
--- NOTE | 2017-01-19 08:57 | Discharge Summary ---
Hospital Course - Hospital Course Hospital Course: Discharge summary: Discharge diagnoses: Peripheral arterial disease with ischemic changes of the right foot Decubitus ulcers of the left issue him and sacrum Procedure: Right AKA amputation Brief summary 71-year-old -Emirati male who we have been having a [facility] treating large ischial and sacral decubitus ulcers. He has been doing well with those when we discovered that he began to have evidence of ischemic changes of the right foot. His creatinine was too high for any arteriograms in his lower arterial vascular studies indicated significant decrease in flow to the foot. He is bedridden due to unknown spinal problem and because of that after discussion with the family advise agreeable to go ahead with just an AKA. He was moved back up in [facility] here where he was taken operating room underwent an AKA tolerated fairly well with some moderate to good bleeding at these flap sites. He was put in the unit for observation and his hematocrit is 25 this morning his vital signs are been stable he does not complain much of discomfort. At this point I think it is okay to returning back to [facility]. - Time spent with patient Time with patient DS: Less than 30 minutes Diagnosis - Discharge Diagnosis (1) Decubitus ulcer of left ischium, stage 4 Status: Chronic (2) Decubitus ulcer of sacral region, unstageable Status: Chronic (3) Renal insufficiency syndrome Status: Chronic (4) Paraplegia Status: Chronic (5) Peripheral arterial occlusive disease Status: Chronic Discharge Plan - Discharge Data Disposition: Disch/Xfer to Skilled Nursing Hos Condition at Discharge: Stable Discharge Diet: advance to your usual diet Activity: other (Bedrest) Hygiene: other Weight Bearing at Discharge: non-weight bearing Contact your physician if you experience:: fever over 101, Redness or swelling, Bleeding, pain uncontrolled by pain medications Wound / Dressing Care Instructions: Wound care orders as ordered at [facility]. New orders to the right AKA - Discharge Medications No Action Acetaminophen Tab [Tylenol Tab] 650 mg PO Q6H PRN tablet PRN Reason: Pain Mild (1-3) And/Or Fever Enoxaparin [Lovenox] 30 mg SUBCUT Q24H syringe HYDROcodone/ACETAMIN 7.5-325 [[place] 7.5-325] 1 tablet PO Q4H PRN tablet PRN Reason: Pain Moderate (4-7) HYDROmorphone INJ [Dilaudid Inj] 1 mg IV Q2H PRN vial PRN Reason: Pain Severe (8-10) Hydrophor 1 applic TOP DIRECTED raNITIdine HCl [Ranitidine HCl] 150 mg PO BID L. Acidophilus/Bulgaricus [Floranex Tablet] 1 tablet PO BID Tamsulosin [Flomax] 0.4 mg PO DAILY Metoprolol Succinate Xl [Toprol Xl] 50 mg PO DAILY Dutasteride [Avodart] 0.5 mg PO DAILY Gabapentin Cap/Tab [Neurontin Cap/Tab] 300 mg PO DAILY Feracon 1 tablet PO BID Docusate Sodium Cap [Colace Cap] 100 mg PO BID capsule Piperacillin/Tazobactam [Zosyn] 3,375 mg IV Q12H vial Clorpactin 2 gm TOP DIRECTED Vitamin B Complex 1 caplet DAILY - Follow Up or Referral - Forms/Instructions Exam - Constitutional Vitals: Period Temp Pulse Resp BP Sys/[place] Pulse Ox Last 24 Hr 97 F-100.0 F 75-113 11-20 87-179/54-106 96-100 General appearance: no acute distress - Head Head exam: Present: normal inspection - ENT ENT exam: Present: normal exam - Neck Neck exam: Present: normal inspection - Respiratory Respiratory exam: Present: rales - Cardiovascular Cardiovascular exam: Present: regular rate and rhythm - GI/Abdominal GI/Abdominal exam: Present: hypoactive bowel sounds, soft - Extremities Exam Extremities exam: Present: other (Dressing of the right AKA is dry with minimal drainage) - Back Exam Back exam: Present: other (Ulcers of the left issue him and sacrum are clean with granulating tissue pretty much unchanged.) - Neurological Exam Neurological exam: Present: altered - Psychiatric Psychiatric exam: Present: flat affect - Skin Skin exam: Present: normal color, warm, dry Discharge Results Procedures and tests throughout hospitalization: Pending Orders 01/19/17 00:22 MRSA Surveillence, Inf Control Routine Labs on day of discharge: Labs from last 24 hours 01/19/17 01/19/17 01/18/17 01:20 01:20 19:20 WBC 8.2 RBC 2.96 L Hgb 8.2 L 9.1 L Hct 25.2 L 28.1 L MCV 85.1 L MCH 28 MCHC 32.5 RDW 19.9 H Plt Count 461 H MPV 9.0 L Neut % (Auto) 90.9 H Lymph % (Auto) 7.2 L Gibson % (Auto) 1.1 L Eos % (Auto) 0.0 Baso % (Auto) 0.2 Neut # (Auto) 7.4 Lymph # (Auto) 0.6 L Gibson # (Auto) 0.1 L Eos # (Auto) 0.0 Baso # (Auto) 0.0 Total Counted 100 Immature Gran % 0.6 Nucleated RBC % 0.0 Immature Gran # 0.05 Segmented Neutrophils 90 H Band Neutrophils 1 Lymphocytes 8 L Myelocytes 1 Nucleated RBCs # 0.00 Platelet Estimate Adequate Immature Plt Fraction 0.0 Hypochromasia 1+ Anisocytosis 1+ Acanthocytes (Spur) Few Sodium 141 Potassium 3.9 Chloride 112 H Carbon Dioxide 20 L Anion Gap 12.9 BUN 21 H Creatinine 3.10 H GFR Calculation 26 BUN/Creatinine Ratio 6.00 Glucose 166 H POC Glucose Calculated Osmolality 287.3 Calcium 8.0 L 01/18/17 01/18/17 15:21 12:23 WBC RBC Hgb Hct MCV MCH MCHC RDW Plt Count MPV Neut % (Auto) Lymph % (Auto) Gibson % (Auto) Eos % (Auto) Baso % (Auto) Neut # (Auto) Lymph # (Auto) Gibson # (Auto) Eos # (Auto) Baso # (Auto) Total Counted Immature Gran % Nucleated RBC % Immature Gran # Segmented Neutrophils Band Neutrophils Lymphocytes Myelocytes Nucleated RBCs # Platelet Estimate Immature Plt Fraction Hypochromasia Anisocytosis Acanthocytes (Spur) Sodium Potassium Chloride Carbon Dioxide Anion Gap BUN Creatinine GFR Calculation BUN/Creatinine Ratio Glucose POC Glucose 87 83 Calculated Osmolality Calcium DS: Provider Date of admission: 01/18/17 06:43 Primary care physician: . No PCP Attending physician on admission: Navid Carroll MD Discharging clinician: Navid Carroll MD Expected date of discharge: 01/19/17
[2017-01-19] MEDS ORDERED: SKIN HEALING OINT (AQUAPHOR) 50 GM TUBE TOP SCH (09:00)
[2017-01-19] MEDS ORDERED: PANTOPRAZOLE 40 MG TABLET PO SCH (09:00)
[2017-01-19] MEDS ORDERED: METOPROLOL SUCCINATE XL 50 MG TABLET PO SCH (09:00)
[2017-01-19] MEDS ORDERED: GABAPENTIN 300 MG CAPSULE PO SCH (09:00)
[2017-01-19] MEDS ORDERED: TAMSULOSIN 0.4 MG CAPSULE PO SCH (09:00)
[2017-01-19] MEDS ORDERED: DUTASTERIDE 0.5 MG CAPSULE PO SCH (09:00)
[2017-01-19] MEDS: LACTOBACILLUS ACIDOPHILUS/BULGARICUS CAPLET PO SCH (09:41)
[2017-01-19] MEDS: DOCUSATE SODIUM 100 MG CAPSULE PO SCH (09:46)
[2017-01-19] MEDS: IRON (CARBONYL)/VIT C/B12/FA TABLET PO SCH (09:46)
[2017-01-19] MEDS: FAMOTIDINE 20 MG TABLET PO SCH (09:47)
[2017-01-19] MEDS: SODIUM HYPOCHLORITE 0.25% IRRIG 473 ML BOTTLE TOP SCH (09:49)
[2017-01-19] MEDS: PIPERACILLIN/TAZOBACTAM 3,375 MG in SODIUM CHLORIDE 0.9% 100 ML IV SCH (10:38)
[2017-01-19 12:08] VITALS: BP 133/76
[2017-01-19] MEDS ORDERED: ENOXAPARIN 40 MG/0.4 ML SYRINGE SUBCUT SCH (12:50)
--- NOTE | 2017-01-20 18:21 | Pathology Report from [facility] ---
[facility] [place] ACCESSION # : [id number] PATIENT NAME : Srinivas Artis ORDERING DR : KYLE KIDD MD CLINICAL HX: Ischemic changes of right foot POST-OP DX: Same SPECIMEN INFO: Right leg GROSS DESCRIPTION: The specimen is received fresh labeled SRINIVAS ARTIS consists of 66.0 cm right leg above knee amputation. The skin is brown and hairless with gangrenous changes noted involving the great and 2nd toes, heel, and the dorsal surface of the foot. Poptieal arteries displays focal atherosclerotic changes. Sections submitted: (A) gangrenous skin, (B) [place]optie[place] artery following decalcification. DIAGNOSIS FOR SRINIVAS ARTIS: RIGHT A-K AMPUTATION: Gangrene; advanced atherosclerosis. COLLECTED DATE: 01/19/2017 [facility] [place] REPORT DATE: 01/20/2017 ELECTRONICALLY SIGNED BY: Selwyn Tellez M.D. 01/20/2017 - 10:19:25 [facility]
== END 2017-01-19 13:20 ==
LOC: INTOOBSV 06:43 → N.SDSINP 06:43 → N.ICU 17:40
PROVIDERS: ADMIT Specialist; ATTEND Specialist

== ENCOUNTER 2017-04-03 11:21 | Inpatient (IN) ==
[2017-04-03] MEDS ORDERED: SODIUM CHLORIDE 0.9% 1,000 ML IV STA ×2 (11:34→13:25)
[2017-04-03] MEDS ORDERED: PIPERACILLIN/TAZOBACTAM 3,375 MG in SODIUM CHLORIDE 0.9% 100 ML IV SCH (12:00)
[2017-04-03 12:03] LABS: Basophils # 0.1 10*3/uL (0.0-0.2); Basophils % 0.2 % (0.0-0.8); Hemoglobin 10.4 GM/DL (14.0-18.0); Immature Granulocytes Absolute 0.22 #; Lymphocytes # 1.3 10*3/uL (1.4-4.0); Lymphocytes % 5.8 % (21.2-54.2); Mean Corpuscular HGB Conc 31.5 GM/DL (32-36); Mean Corpuscular Hemoglobin 28 PG (27-34); Mean Corpuscular Volume 89.2 FL (87-102); Mean Platelet Volume 10.3 FL (9.6-12.0); Monocytes # 1.4 10*3/uL (0.11-0.8); Monocytes % 5.9 % (1.7-12.7); Neutrophils # 19.8 10*3/uL (1.4-7.4); Neutrophils % 87.1 % (38.7-73.9); Platelet Count 388 T/CUMM (130-400); Red Cell Distribution Width 15.7 % (9.3-17.3); White Blood Count 22.8 T/CUMM (4-12)
[2017-04-03 12:12] LABS: PT Patient Result 10.7 SECS; Partial Thromboplastin Time 36.7 SECS (0-40)
[2017-04-03 12:35] LABS: Band Neutrophils 16 % (0-10); Hypochromasia 1+; Lymphocytes 9 % (20-55); Metamyelocytes 2 %; Microcytosis Slight; Segmented Neutrophils 66 % (50-85); Total Cells Counted 100
[2017-04-03 12:42] LABS: Ammonia < 10 UMOL/L (11-32)
[2017-04-03 12:45] LABS: Alanine Aminotransferase 22 U/L (16-61); Albumin 2.5 G/DL (3.4-5.0); Alkaline Phosphatase 79 U/L (45-117); Aspartate Amino Transferase 40 U/L (0-37); Bilirubin,Total < 0.39 MG/DL (0.2-1.0); Blood Urea Nitrogen 100 MG/DL (7-18); Calcium 10.1 MG/DL (8.5-10.1); Glucose 115 MG/DL (74-106); Osmolality,Calculated 295.5 MOS/KG (273-304); Sodium 132 MMOL/L (136-145); Total Protein 9.5 G/DL (6.4-8.3)
[2017-04-03 12:48] LABS: Potassium 7.2 MMOL/L (3.5-5.1); Troponin I Only 0.171 NG/ML (0.00-0.045)
[2017-04-03] MEDS ORDERED: INSULIN REGULAR 100 UNIT/ML IV STA (12:53)
[2017-04-03] MEDS ORDERED: DEXTROSE 50% 25 GM/50 ML VIAL IV STA (12:53)
[2017-04-03] MEDS ORDERED: SODIUM BICARBONATE 50 MEQ/50 ML VIAL IV STA (12:53)
[2017-04-03 13:05] LABS: Apearance,Urine CLOUDY (Clear); Bacteria,Urine Few /HPF (Few); Bilirubin,Urine Negative (Negative); Blood, Urine Small mg/dL (Negative); Glucose,Urine (UA) Negative (Negative); Ketones,Urine Negative (Negative); Nitrite,Urine Negative (Negative); Protein,Urine 100 MG/DL; RBC,Urine 10 /HPF (0-4); Squamous Epithelial Cell,Urine Occasional /HPF (0-10); Urine Color Amber (Yellow); Urine Specific Gravity 1.014 (1.001-1.035); Urine Urobilinogen < 2.0 EU/DL (0.2-1.0); WBC,Urine 150 /HPF (0-6)
[2017-04-03] MEDS ORDERED: SODIUM BICARBONATE 50 MEQ/50 ML SYRINGE IV ONE (13:07)
[2017-04-03] MEDS ORDERED: PIPERACILLIN/TAZOBACTAM 3,375 MG VIAL IV ONE (13:07)
[2017-04-03] MEDS ORDERED: DEXTROSE 50% 25 GM/50 ML SYRINGE IV ONE (13:07)
[2017-04-03] MEDS ORDERED: INSULIN REGULAR 100 UNIT/ML ONE (13:09)
[2017-04-03 13:17] LABS: Barbiturates Screen,Urine Negative (Negative); Benzodiazepines Screen,Urine Negative (Negative); Cannabinoid Screen,Urine Negative (Negative); Opiate Screen,Urine Negative (Negative); Phencyclidine Screen,Urine Negative (Negative)
[2017-04-03] MEDS ORDERED: SODIUM CHLORIDE 0.9% 1,950 ML IV ONE (14:40)
[2017-04-03] MEDS ORDERED: SODIUM CHLORIDE 0.9% 1,000 ML IV SCH (14:40)
[2017-04-03] MEDS ORDERED: ONDANSETRON 4 MG/2 ML VIAL IV PRN (14:40)
[2017-04-03] MEDS ORDERED: CALCIUM GLUCONATE 2,000 MG in SODIUM CHLORIDE 0.9% 100 ML IV ONE (15:00)
[2017-04-03] MEDS ORDERED: ENOXAPARIN 30 MG/0.3 ML SYRINGE SUBCUT SCH (15:00)
[2017-04-03] MEDS ORDERED: SODIUM POLYSTYRENE SULFATE 15 GM/60 ML BOTTLE PO ONE (15:00)
[2017-04-03 15:08] LABS: Magnesium 2.2 MG/DL (1.8-2.4); Thyroid Stimulating Hormone 5.2 uIU/ml (0.358-3.74)
[2017-04-03 16:00] LABS: ABG Base Excess -13.6 MMOL/L (-2.5-2.5); ABG HCO3 13.8 MMOL/L (20-26); ABG PH 7.344 (7.35-7.45); ABG TCO2 9.9 MMOL/L (23-27); Allen Test Positive
[2017-04-03 16:07] LABS: ABG PCO2 19.8 MM HG (35-48)
[2017-04-03] MEDS: MEROPENEM 500 MG in SYRINGE 1 EACH IV SCH (16:43)
[2017-04-03] MEDS: PANTOPRAZOLE 40 MG TABLET PO SCH (16:46)
[2017-04-03] MEDS: OSELTAMIVIR 30 MG CAPSULE PO SCH (16:46)
[2017-04-03 17:21] LABS: Amorphous Crystals,Urine Occasional /HPF (Few); Apearance,Urine CLOUDY (Clear); Bilirubin,Urine Negative (Negative); Blood, Urine Moderate mg/dL (Negative); Glucose,Urine (UA) Negative (Negative); Ketones,Urine Negative (Negative); Nitrite,Urine Negative (Negative); Protein,Urine 100 MG/DL; RBC,Urine 13 /HPF (0-4); Urine Color Yellow (Yellow); Urine Specific Gravity 1.015 (1.001-1.035); Urine Urobilinogen < 2.0 EU/DL (0.2-1.0); WBC,Urine 244 /HPF (0-6)
[2017-04-03 17:59] LABS: Calcium 9.1 MG/DL (8.5-10.1); Osmolality,Calculated 304.8 MOS/KG (273-304)
[2017-04-03 18:01] LABS: Potassium 6.6 MMOL/L (3.5-5.1)
[2017-04-03] MEDS: SODIUM BICARB INJ 100 MEQ in STERILE WATER INJ 1,000 ML IV SCH (18:28)
[2017-04-03] MEDS: CLINDAMYCIN INJ 300 MG in PREMIX 1 EACH IV SCH (18:39)
[2017-04-03] MEDS: ACETAMINOPHEN 325 MG TABLET PO PRN (19:58)
[2017-04-03] MEDS: ALBUTEROL/IPRATROPIUM 3 ML NEB RESP TX SCH ×2 (20:03→23:29)
[2017-04-04 01:06] LABS: Basophils % 0.2 % (0.0-0.8); Hematocrit 28.8 VOL% (42.0-52.0); Hemoglobin 9.3 GM/DL (14.0-18.0); Immature Granulocytes % 1.3 %; Immature Granulocytes Absolute 0.26 #; Lymphocytes # 0.8 10*3/uL (1.4-4.0); Mean Corpuscular HGB Conc 32.3 GM/DL (32-36); Mean Corpuscular Hemoglobin 28 PG (27-34); Mean Corpuscular Volume 86.5 FL (87-102); Mean Platelet Volume 10.7 FL (9.6-12.0); Monocytes # 0.5 10*3/uL (0.11-0.8); Monocytes % 2.6 % (1.7-12.7); Neutrophils # 18.3 10*3/uL (1.4-7.4); Neutrophils % 91.9 % (38.7-73.9); Platelet Count 333 T/CUMM (130-400); Red Blood Count 3.33 MC/CUMM (3.8-5.5); Red Cell Distribution Width 15.2 % (9.3-17.3)
[2017-04-04 01:24] LABS: Calcium 9.2 MG/DL (8.5-10.1); Osmolality,Calculated 316.1 MOS/KG (273-304); Potassium 5.8 MMOL/L (3.5-5.1)
[2017-04-04] MEDS: ALBUTEROL/IPRATROPIUM 3 ML NEB RESP TX SCH ×6 (03:06→23:56)
[2017-04-04] MEDS ORDERED: NOREPINEPHRINE 8 MG in SODIUM CHLORIDE 0.9% 242 ML IV SCH (04:30)
[2017-04-04] MEDS ORDERED: SODIUM CHLORIDE 0.9% 250 ML IV ONE (04:30)
[2017-04-04] MEDS ORDERED: PHENYLEPHRINE DRIP 40 MG/250 ML PREMIX IV SCH (08:30)
[2017-04-04 09:54] LABS: Calcium 8.8 MG/DL (8.5-10.1); Osmolality,Calculated 317.3 MOS/KG (273-304)
[2017-04-04 09:55] LABS: Risk Ratio 5.33; VLDL CHOLESTEROL 41.2 MG/DL
[2017-04-04] MEDS: OSELTAMIVIR 30 MG CAPSULE PO SCH (10:00)
[2017-04-04] MEDS: PANTOPRAZOLE 40 MG TABLET PO SCH ×2 (10:00→15:52)
[2017-04-04] MEDS: CLINDAMYCIN INJ 300 MG in PREMIX 1 EACH IV SCH (10:01)
[2017-04-04] MEDS: SODIUM BICARB INJ 100 MEQ in STERILE WATER INJ 1,000 ML IV SCH ×3 (10:02→23:30)
[2017-04-04 10:59] LABS: Band Neutrophils 54 % (0-10); Hypochromasia 1+; Lymphocytes 6 % (20-55); Microcytosis 2+; Platelet Estimate Adequate; Segmented Neutrophils 38 % (50-85); Total Cells Counted 100
[2017-04-04 11:04] LABS: ABG Base Excess -7.5 MMOL/L (-2.5-2.5); ABG HCO3 15.8 MMOL/L (20-26); ABG PCO2 24.7 MM HG (35-48); ABG PH 7.423 (7.35-7.45); ABG PO2 56.9 MM HG (80-95); ABG TCO2 16.5 MMOL/L (23-27)
[2017-04-04] MEDS ORDERED: CLINDAMYCIN INJ 300 MG in PREMIX 1 EACH IV SCH (11:30)
[2017-04-04] MEDS: MEROPENEM 500 MG in SYRINGE 1 EACH IV SCH (15:01)
[2017-04-04] MEDS: COLLAGENASE OINT 30 GM TUBE TOP SCH (15:53)
[2017-04-04] MEDS: LINEZOLID INJ 600 MG in PREMIX 1 EACH IV SCH (16:04)
[2017-04-04] MEDS: ACETAMINOPHEN 325 MG TABLET PO PRN (23:40)
[2017-04-05] MEDS: ALBUTEROL/IPRATROPIUM 3 ML NEB RESP TX SCH ×5 (02:35→20:33)
[2017-04-05 03:16] LABS: Allen Test Positive
[2017-04-05 03:17] LABS: ABG Base Excess -3.3 MMOL/L (-2.5-2.5); ABG HCO3 21.5 MMOL/L (20-26); ABG Oxygen Saturation 89.2 % (95-100); ABG PCO2 31.1 MM HG (35-48); ABG PH 7.426 (7.35-7.45); ABG PO2 55.1 MM HG (80-95); ABG TCO2 19.1 MMOL/L (23-27)
[2017-04-05 03:51] LABS: Basophils % 0.1 % (0.0-0.8); Eosinophils # 0.1 10*3/uL (0.0-0.87); Eosinophils % 0.3 % (0.00-10.9); Hematocrit 24.4 VOL% (42.0-52.0); Hemoglobin 8.3 GM/DL (14.0-18.0); Immature Granulocytes % 0.4 %; Immature Granulocytes Absolute 0.06 #; Lymphocytes % 6.9 % (21.2-54.2); Mean Corpuscular Hemoglobin 28 PG (27-34); Mean Platelet Volume 10.8 FL (9.6-12.0); Monocytes # 0.3 10*3/uL (0.11-0.8); Monocytes % 2.2 % (1.7-12.7); Neutrophils # 13.3 10*3/uL (1.4-7.4); Neutrophils % 90.1 % (38.7-73.9); Platelet Count 284 T/CUMM (130-400); Red Blood Count 2.94 MC/CUMM (3.8-5.5); Red Cell Distribution Width 14.4 % (9.3-17.3); White Blood Count 14.7 T/CUMM (4-12)
[2017-04-05 04:26] LABS: Albumin 1.8 G/DL (3.4-5.0); Bilirubin,Total 0.5 MG/DL (0.2-1.0); Calcium 8.4 MG/DL (8.5-10.1); Potassium 4.4 MMOL/L (3.5-5.1); Total Protein 6.3 G/DL (6.4-8.3)
[2017-04-05 04:29] LABS: Band Neutrophils 10 % (0-10); Lymphocytes 7 % (20-55); Platelet Estimate Adequate; Segmented Neutrophils 81 % (50-85); Total Cells Counted 100
[2017-04-05 04:30] LABS: Hypochromasia Slight; Polychromasia Slight; Target Cells Slight
[2017-04-05] MEDS: LINEZOLID INJ 600 MG in PREMIX 1 EACH IV SCH ×2 (04:50→15:56)
[2017-04-05] MEDS: PANTOPRAZOLE 40 MG TABLET PO SCH (09:25)
[2017-04-05] MEDS: OSELTAMIVIR 30 MG CAPSULE PO SCH (09:25)
[2017-04-05] MEDS ORDERED: SODIUM CHLORIDE 0.9% 1,000 ML IV PRN (10:31)
[2017-04-05] MEDS: COLLAGENASE OINT 30 GM TUBE TOP SCH (11:53)
[2017-04-05] MEDS: SODIUM BICARB INJ 100 MEQ in STERILE WATER INJ 1,000 ML IV SCH ×2 (11:54→23:14)
[2017-04-05] MEDS: ACETAMINOPHEN 325 MG TABLET PO PRN (13:19)
[2017-04-05] MEDS: MEROPENEM 500 MG in SYRINGE 1 EACH IV SCH (15:06)
[2017-04-05 16:16] LABS: Procalcitonin, S 33 ng/mL (<=0.15)
[2017-04-06] MEDS: ALBUTEROL/IPRATROPIUM 3 ML NEB RESP TX SCH ×6 (00:13→19:04)
[2017-04-06 03:59] LABS: ABG Base Excess 3.9 MMOL/L (-2.5-2.5); ABG Oxygen Saturation 89.7 % (95-100); ABG PCO2 34.6 MM HG (35-48); ABG PO2 49.4 MM HG (80-95); ABG TCO2 28.1 MMOL/L (23-27); Allen Test Positive
[2017-04-06] MEDS: LINEZOLID INJ 600 MG in PREMIX 1 EACH IV SCH ×2 (04:51→15:50)
[2017-04-06 05:50] LABS: Basophils % 0.1 % (0.0-0.8); Eosinophils # 0.1 10*3/uL (0.0-0.87); Eosinophils % 0.8 % (0.00-10.9); Hematocrit 22.9 VOL% (42.0-52.0); Hemoglobin 8.1 GM/DL (14.0-18.0); Immature Granulocytes % 0.7 %; Lymphocytes # 0.8 10*3/uL (1.4-4.0); Lymphocytes % 5.7 % (21.2-54.2); Mean Corpuscular HGB Conc 35.4 GM/DL (32-36); Mean Corpuscular Hemoglobin 28 PG (27-34); Mean Corpuscular Volume 79.2 FL (87-102); Mean Platelet Volume 11.8 FL (9.6-12.0); Monocytes # 0.4 10*3/uL (0.11-0.8); Monocytes % 2.4 % (1.7-12.7); Neutrophils # 13.2 10*3/uL (1.4-7.4); Neutrophils % 90.3 % (38.7-73.9); Platelet Count 269 T/CUMM (130-400); Red Blood Count 2.89 MC/CUMM (3.8-5.5); Red Cell Distribution Width 13.7 % (9.3-17.3); White Blood Count 14.6 T/CUMM (4-12)
[2017-04-06 06:19] LABS: Band Neutrophils 2 % (0-10); Eosinophils 2 % (0-10); Giant Platelets Few; Hypochromasia 1+; Lymphocytes 5 % (20-55); Ovalocytes Slight; Platelet Estimate Adequate; Segmented Neutrophils 89 % (50-85); Total Cells Counted 100
[2017-04-06 06:20] LABS: Albumin 1.7 G/DL (3.4-5.0); Bilirubin,Total 0.9 MG/DL (0.2-1.0); Microcytosis Slight; Osmolality,Calculated 303.4 MOS/KG (273-304); Potassium 3.9 MMOL/L (3.5-5.1); Total Protein 6.1 G/DL (6.4-8.3)
[2017-04-06] MEDS ORDERED: FUROSEMIDE 100 MG/10 ML VIAL IV ONE (09:29)
[2017-04-06] MEDS ORDERED: metOLazone 5 MG TABLET PO ONE (10:30)
[2017-04-06] MEDS: PANTOPRAZOLE 40 MG TABLET PO SCH (10:33)
[2017-04-06] MEDS: OSELTAMIVIR 30 MG CAPSULE PO SCH (10:33)
[2017-04-06] MEDS: COLLAGENASE OINT 30 GM TUBE TOP SCH (11:40)
[2017-04-06] MEDS: DILTIAZEM CD 120 MG CAPSULE PO SCH (13:59)
[2017-04-06] MEDS: MEROPENEM 500 MG in SYRINGE 1 EACH IV SCH (15:19)
[2017-04-07] MEDS: ALBUTEROL/IPRATROPIUM 3 ML NEB RESP TX SCH ×4 (00:16→11:59)
[2017-04-07 03:02] LABS: ABG Base Excess 3.9 MMOL/L (-2.5-2.5); ABG Oxygen Saturation 98.1 % (95-100); ABG PCO2 36.7 MM HG (35-48); ABG PH 7.482 (7.35-7.45); ABG PO2 96.3 MM HG (80-95); ABG TCO2 24.9 MMOL/L (23-27); Allen Test Positive
[2017-04-07] MEDS: LINEZOLID INJ 600 MG in PREMIX 1 EACH IV SCH (03:59)
[2017-04-07 04:40] LABS: Basophils % 0.1 % (0.0-0.8); Eosinophils # 0.3 10*3/uL (0.0-0.87); Eosinophils % 2.6 % (0.00-10.9); Hematocrit 23.5 VOL% (42.0-52.0); Hemoglobin 8.2 GM/DL (14.0-18.0); Immature Granulocytes % 0.8 %; Immature Granulocytes Absolute 0.09 #; Lymphocytes # 0.9 10*3/uL (1.4-4.0); Lymphocytes % 8.6 % (21.2-54.2); Mean Corpuscular HGB Conc 34.9 GM/DL (32-36); Mean Corpuscular Hemoglobin 28 PG (27-34); Mean Corpuscular Volume 79.7 FL (87-102); Mean Platelet Volume 11.3 FL (9.6-12.0); Monocytes # 0.4 10*3/uL (0.11-0.8); Monocytes % 3.8 % (1.7-12.7); Neutrophils # 9.1 10*3/uL (1.4-7.4); Neutrophils % 84.1 % (38.7-73.9); Platelet Count 306 T/CUMM (130-400); Red Blood Count 2.95 MC/CUMM (3.8-5.5); Red Cell Distribution Width 13.9 % (9.3-17.3); White Blood Count 10.8 T/CUMM (4-12)
[2017-04-07 05:11] LABS: Albumin 1.7 G/DL (3.4-5.0); Bilirubin,Total 0.8 MG/DL (0.2-1.0); Osmolality,Calculated 303.2 MOS/KG (273-304); Potassium 3.8 MMOL/L (3.5-5.1); Total Protein 6.1 G/DL (6.4-8.3)
[2017-04-07] MEDS: DILTIAZEM CD 120 MG CAPSULE PO SCH (08:25)
[2017-04-07] MEDS: COLLAGENASE OINT 30 GM TUBE TOP SCH (08:25)
[2017-04-07] MEDS: PANTOPRAZOLE 40 MG TABLET PO SCH (08:25)
[2017-04-07] MEDS: OSELTAMIVIR 30 MG CAPSULE PO SCH (08:25)
[2017-04-07] MEDS ORDERED: PIPERACILLIN/TAZOBACTAM 2,250 MG in SODIUM CHLORIDE 0.9% 100 ML IV SCH (12:00)
[2017-04-07 13:27] VITALS: BP 108/65
== END 2017-04-07 13:40 | DRG 698 ==
LOC: N.ED 11:21 → N.EDINP 13:44 → N.ICU 14:42
PROVIDERS: ADMIT Internal Medicine; ATTEND Internal Medicine

== ENCOUNTER 2018-11-11 15:35 | Inpatient (IN) ==
[2018-11-11] MEDS ORDERED: MORPHINE 4 MG/1 ML VIAL IV STA (16:03)
[2018-11-11] MEDS ORDERED: ONDANSETRON 4 MG/2 ML VIAL IV STA (16:03)
[2018-11-11] MEDS ORDERED: SODIUM CHLORIDE 0.9% 1,000 ML IV STA (16:03)
[2018-11-11 16:49] LABS: Basophils % 0.1 % (0.0-0.8); Eosinophils # 1.6 10*3/uL (0.0-0.87); Eosinophils % 13.8 % (0.00-10.9); Hematocrit 31.7 VOL% (42.0-52.0); Immature Granulocytes % 0.4 %; Immature Granulocytes Absolute 0.05 #; Lymphocytes # 0.4 10*3/uL (1.4-4.0); Lymphocytes % 3.6 % (21.2-54.2); Mean Corpuscular HGB Conc 31.5 GM/DL (32-36); Mean Corpuscular Volume 83.2 FL (87-102); Mean Platelet Volume 10.6 FL (9.6-12.0); Monocytes % 4.5 % (1.7-12.7); Neutrophils % 77.6 % (38.7-73.9); Platelet Count 302 T/CUMM (130-400); Red Blood Count 3.81 MC/CUMM (3.8-5.5); Red Cell Distribution Width 14.6 % (9.3-17.3); White Blood Count 11.3 T/CUMM (4-12)
[2018-11-11 17:08] LABS: Anisocytosis 1+; Eosinophils 11 % (0-10); Lymphocytes 2 % (20-55); Segmented Neutrophils 80 % (50-85); Total Cells Counted 100
[2018-11-11 17:09] LABS: Hypochromasia Slight; Platelet Estimate Adequate
[2018-11-11 17:21] LABS: Alanine Aminotransferase 36 U/L (16-61); Albumin 2.9 G/DL (3.4-5.0); Alkaline Phosphatase 137 U/L (45-117); Aspartate Amino Transferase 29 U/L (0-37); Bilirubin,Total < 0.39 MG/DL (0.2-1.0); Blood Urea Nitrogen 137 MG/DL (7-18); Calcium 7.9 MG/DL (8.5-10.1); Glucose 88 MG/DL (74-106); Osmolality,Calculated 304.7 MOS/KG (273-304); Total Protein 7.6 G/DL (6.4-8.3)
[2018-11-11 18:29] LABS: Apearance,Urine CLOUDY (Clear); Bilirubin,Urine Negative (Negative); Blood, Urine Moderate mg/dL (Negative); Glucose,Urine (UA) Negative (Negative); Ketones,Urine Negative (Negative); Nitrite,Urine Negative (Negative); Protein,Urine 100 MG/DL; Urine Color Yellow (Yellow); Urine Specific Gravity 1.012 (1.001-1.035); Urine Urobilinogen < 2.0 EU/DL (0.2-1.0); WBC,Urine 363 /HPF (0-6)
[2018-11-11] MEDS ORDERED: LEVOFLOXACIN INJ 750 MG in PREMIX 1 EACH IV STA (18:38)
[2018-11-11] MEDS ORDERED: cefTRIAXone 1,000 MG in SYRINGE 1 EACH IV SCH (20:00)
[2018-11-11] MEDS: FAMOTIDINE 20 MG TABLET PO SCH (21:42)
[2018-11-11] MEDS: metroNIDAZOLE INJ 500 MG in PREMIX 1 EACH IV SCH (22:18)
[2018-11-12] MEDS: metroNIDAZOLE INJ 500 MG in PREMIX 1 EACH IV SCH (04:38)
[2018-11-12 04:50] LABS: Basophils % 0.1 % (0.0-0.8); Eosinophils # 1.3 10*3/uL (0.0-0.87); Eosinophils % 15.2 % (0.00-10.9); Hematocrit 29.3 VOL% (42.0-52.0); Hemoglobin 9.3 GM/DL (14.0-18.0); Immature Granulocytes % 0.5 %; Immature Granulocytes Absolute 0.04 #; Lymphocytes # 0.6 10*3/uL (1.4-4.0); Lymphocytes % 6.3 % (21.2-54.2); Mean Corpuscular HGB Conc 31.7 GM/DL (32-36); Mean Platelet Volume 11.2 FL (9.6-12.0); Monocytes % 5.1 % (1.7-12.7); Neutrophils % 72.8 % (38.7-73.9); Platelet Count 275 T/CUMM (130-400); Red Blood Count 3.53 MC/CUMM (3.8-5.5); Red Cell Distribution Width 14.6 % (9.3-17.3); White Blood Count 8.7 T/CUMM (4-12)
[2018-11-12 05:17] LABS: Albumin 2.5 G/DL (3.4-5.0); Bilirubin,Total 0.7 MG/DL (0.2-1.0); Calcium 7.8 MG/DL (8.5-10.1); Osmolality,Calculated 305.4 MOS/KG (273-304); Total Protein 6.6 G/DL (6.4-8.3)
[2018-11-12 05:26] LABS: Band Neutrophils 2 % (0-10); Eosinophils 13 % (0-10); Lymphocytes 4 % (20-55); Segmented Neutrophils 79 % (50-85); Total Cells Counted 100
[2018-11-12 05:27] LABS: Anisocytosis 1+; Hypochromasia 1+; Microcytosis 1+; Ovalocytes Few; Platelet Estimate Adequate; Target Cells Few
[2018-11-12] MEDS ORDERED: TISSUE ADHESIVE 1 EACH APPLICATOR TOP ONE (12:35)
[2018-11-12] MEDS ORDERED: LIDOCAINE 1%/EPI INJ 20 ML VIAL ONE (12:35)
[2018-11-12] MEDS ORDERED: HEPARIN 5,000 UNIT/1 ML VIAL ONE (12:35)
[2018-11-12] MEDS ORDERED: BUPIVACAINE MPF 0.25% 30 ML VIAL ONE (12:35)
[2018-11-12 12:59] LABS: Hepatitis B Surface Ag Quant < 0.10 Index; Hepatitis B Surface Ag Result Negative (Negative); Hepatitis C Virus Ab Quant 0.14 Index; Hepatitis C Virus Ab Result Negative (Negative)
[2018-11-12] MEDS ORDERED: SODIUM CHLORIDE 0.9% 250 ML IV SCH (14:30)
[2018-11-12] MEDS ORDERED: PROPOFOL 200 MG/20 ML VIAL IV ONE (15:02)
[2018-11-12] MEDS ORDERED: MIDAZOLAM 2 MG/2 ML VIAL ONE (15:03)
[2018-11-12] MEDS: FAMOTIDINE 20 MG TABLET PO SCH ×2 (15:54→20:51)
[2018-11-12] MEDS: DILTIAZEM CD 240 MG CAPSULE PO SCH (15:55)
[2018-11-12] MEDS: DOXAZOSIN 1 MG TABLET PO SCH (15:55)
[2018-11-12] MEDS: VANCOMYCIN 50 MG/ML 60 ML/BOTTLE PO SCH ×2 (15:56→22:45)
[2018-11-13] MEDS: VANCOMYCIN 50 MG/ML 60 ML/BOTTLE PO SCH ×4 (04:01→22:45)
[2018-11-13 04:42] LABS: Eosinophils # 1.4 10*3/uL (0.0-0.87); Eosinophils % 15.4 % (0.00-10.9); Hematocrit 30.2 VOL% (42.0-52.0); Hemoglobin 9.7 GM/DL (14.0-18.0); Immature Granulocytes % 0.5 %; Immature Granulocytes Absolute 0.05 #; Lymphocytes # 0.7 10*3/uL (1.4-4.0); Lymphocytes % 7.7 % (21.2-54.2); Mean Corpuscular HGB Conc 32.1 GM/DL (32-36); Mean Corpuscular Volume 82.7 FL (87-102); Mean Platelet Volume 11.2 FL (9.6-12.0); Monocytes % 5.8 % (1.7-12.7); Neutrophils % 70.6 % (38.7-73.9); Platelet Count 290 T/CUMM (130-400); Red Blood Count 3.65 MC/CUMM (3.8-5.5); Red Cell Distribution Width 14.5 % (9.3-17.3); White Blood Count 9.3 T/CUMM (4-12)
[2018-11-13 04:43] LABS: Calcium 7.8 MG/DL (8.5-10.1); Osmolality,Calculated 313.1 MOS/KG (273-304)
[2018-11-13 05:07] LABS: Band Neutrophils 2 % (0-10); Eosinophils 16 % (0-10); Hypochromasia Slight; Lymphocytes 8 % (20-55); Platelet Estimate Normal; Segmented Neutrophils 68 % (50-85); Total Cells Counted 100
[2018-11-13] MEDS: FAMOTIDINE 20 MG TABLET PO SCH ×2 (09:06→20:39)
[2018-11-13] MEDS: DOXAZOSIN 1 MG TABLET PO SCH (09:06)
[2018-11-13] MEDS: DILTIAZEM CD 240 MG CAPSULE PO SCH (09:06)
[2018-11-13] MEDS ORDERED: HEPARIN 10,000 UNIT/10 ML VIAL IV PRN (15:28)
[2018-11-13] MEDS: SODIUM HYPOCHLORITE 0.25% IRRIG 473 ML BOTTLE TOP SCH (16:22)
[2018-11-14] MEDS: VANCOMYCIN 50 MG/ML 60 ML/BOTTLE PO SCH ×5 (04:16→23:15)
[2018-11-14] MEDS: DOXAZOSIN 1 MG TABLET PO SCH (08:38)
[2018-11-14] MEDS: DILTIAZEM CD 240 MG CAPSULE PO SCH (08:38)
[2018-11-14] MEDS: SODIUM HYPOCHLORITE 0.25% IRRIG 473 ML BOTTLE TOP SCH (08:39)
[2018-11-14] MEDS: FAMOTIDINE 20 MG TABLET PO SCH ×2 (08:39→22:43)
[2018-11-14] MEDS ORDERED: PIPERACILLIN/TAZOBACTAM 3,375 MG in SODIUM CHLORIDE 0.9% 100 ML IV SCH (11:00)
[2018-11-14] MEDS: PIPERACILLIN/TAZOBACTAM 3,375 MG in SODIUM CHLORIDE 0.9% 100 ML IV SCH (19:56)
[2018-11-15] MEDS: VANCOMYCIN 50 MG/ML 60 ML/BOTTLE PO SCH ×4 (03:56→20:59)
[2018-11-15 09:50] LABS: Basophils % 0.4 % (0.0-0.8); Eosinophils # 0.6 10*3/uL (0.0-0.87); Eosinophils % 14.1 % (0.00-10.9); Hematocrit 34.3 VOL% (42.0-52.0); Hemoglobin 10.7 GM/DL (14.0-18.0); Immature Granulocytes % 0.4 %; Immature Granulocytes Absolute 0.02 #; Lymphocytes % 21.5 % (21.2-54.2); Mean Corpuscular HGB Conc 31.2 GM/DL (32-36); Mean Corpuscular Volume 83.7 FL (87-102); Monocytes % 8.6 % (1.7-12.7); Platelet Count 180 T/CUMM (130-400); Red Cell Distribution Width 14.9 % (9.3-17.3); White Blood Count 4.6 T/CUMM (4-12)
[2018-11-15 10:11] LABS: Eosinophils 23 % (0-10); Hypochromasia 1+; Lymphocytes 16 % (20-55); Platelet Estimate Adequate; Segmented Neutrophils 50 % (50-85); Total Cells Counted 100
[2018-11-15 10:13] LABS: Albumin 3.1 G/DL (3.4-5.0); Calcium 8.8 MG/DL (8.5-10.1); Osmolality,Calculated 289.3 MOS/KG (273-304)
[2018-11-15] MEDS: PIPERACILLIN/TAZOBACTAM 3,375 MG in SODIUM CHLORIDE 0.9% 100 ML IV SCH ×2 (14:26→20:55)
[2018-11-15] MEDS: FAMOTIDINE 20 MG TABLET PO SCH ×2 (14:26→20:55)
[2018-11-15] MEDS: SODIUM HYPOCHLORITE 0.25% IRRIG 473 ML BOTTLE TOP SCH (14:26)
[2018-11-15] MEDS: DILTIAZEM CD 240 MG CAPSULE PO SCH (14:26)
[2018-11-15] MEDS: DOXAZOSIN 1 MG TABLET PO SCH (14:26)
[2018-11-16] MEDS: VANCOMYCIN 50 MG/ML 60 ML/BOTTLE PO SCH ×2 (04:09→09:46)
[2018-11-16 04:57] LABS: Basophils % 0.2 % (0.0-0.8); Eosinophils # 0.7 10*3/uL (0.0-0.87); Eosinophils % 10.7 % (0.00-10.9); Hematocrit 34.1 VOL% (42.0-52.0); Hemoglobin 10.7 GM/DL (14.0-18.0); Immature Granulocytes % 0.5 %; Immature Granulocytes Absolute 0.03 #; Lymphocytes % 32.1 % (21.2-54.2); Mean Corpuscular HGB Conc 31.4 GM/DL (32-36); Mean Corpuscular Volume 83.4 FL (87-102); Mean Platelet Volume 11.1 FL (9.6-12.0); Monocytes % 11.8 % (1.7-12.7); Neutrophils % 44.7 % (38.7-73.9); Platelet Count 194 T/CUMM (130-400); Red Blood Count 4.09 MC/CUMM (3.8-5.5); Red Cell Distribution Width 14.9 % (9.3-17.3); White Blood Count 6.3 T/CUMM (4-12)
[2018-11-16 05:32] LABS: Calcium 8.7 MG/DL (8.5-10.1); Osmolality,Calculated 284.3 MOS/KG (273-304)
[2018-11-16 07:54] VITALS: BP 156/87
[2018-11-16] MEDS: DOXAZOSIN 1 MG TABLET PO SCH (09:45)
[2018-11-16] MEDS: FAMOTIDINE 20 MG TABLET PO SCH (09:45)
[2018-11-16] MEDS: DILTIAZEM CD 240 MG CAPSULE PO SCH (09:45)
[2018-11-16] MEDS: PIPERACILLIN/TAZOBACTAM 3,375 MG in SODIUM CHLORIDE 0.9% 100 ML IV SCH (09:46)
== END 2018-11-16 11:55 | DRG 371 ==
LOC: EDUNIT# → EDBD → N.ED 15:35 → N.EDINP 19:43 → N.2E 20:59
PROVIDERS: ADMIT Internal Medicine; ATTEND Internal Medicine

== ENCOUNTER 2019-03-18 14:35 | Observation (INO) ==
[2019-03-18] MEDS ORDERED: DILTIAZEM 50 MG/10 ML VIAL IV STA ×2 (14:49→14:50)
[2019-03-18] MEDS ORDERED: ASPIRIN CHEW 81 MG TABLET PO STA (14:53)
[2019-03-18] MEDS ORDERED: DILTIAZEM INJ 100 MG in SODIUM CHLORIDE 0.9% 100 ML IV SCH (15:00)
[2019-03-18 15:20] LABS: Basophils % 0.4 % (0.0-0.8); Eosinophils # 0.9 10*3/uL (0.0-0.87); Eosinophils % 8.8 % (0.00-10.9); Hematocrit 32.8 VOL% (42.0-52.0); Hemoglobin 10.5 GM/DL (14.0-18.0); Immature Granulocytes % 0.2 %; Immature Granulocytes Absolute 0.02 #; Lymphocytes # 2.5 10*3/uL (1.4-4.0); Lymphocytes % 23.4 % (21.2-54.2); Mean Corpuscular Volume 85.9 FL (87-102); Mean Platelet Volume 10.2 FL (9.6-12.0); Monocytes % 7.6 % (1.7-12.7); Neutrophils % 59.6 % (38.7-73.9); Platelet Count 293 T/CUMM (130-400); Red Blood Count 3.82 MC/CUMM (3.8-5.5); Red Cell Distribution Width 16.1 % (9.3-17.3); White Blood Count 10.6 T/CUMM (4-12)
[2019-03-18 15:33] LABS: INR 0.9; PT Patient Result 10.1 SECS (9.6-12.2)
[2019-03-18 15:38] LABS: Albumin 3.2 G/DL (3.4-5.0); Bilirubin,Total 1.4 MG/DL (0.2-1.0); Calcium 9.6 MG/DL (8.5-10.1); Osmolality,Calculated 279.8 MOS/KG (273-304); Total Protein 7.9 G/DL (6.4-8.3)
[2019-03-18] MEDS ORDERED: ONDANSETRON 4 MG/2 ML VIAL IV PRN (16:15)
[2019-03-18] MEDS ORDERED: ACETAMINOPHEN 325 MG TABLET PO PRN (16:15)
[2019-03-18] MEDS ORDERED: MORPHINE 4 MG/1 ML VIAL IV PRN (16:15)
[2019-03-18] MEDS ORDERED: ALBUTEROL/IPRATROPIUM 3 ML NEB RESP TX PRN (16:18)
[2019-03-18] MEDS: ENOXAPARIN 30 MG/0.3 ML SYRINGE SUBCUT SCH (17:35)
[2019-03-19 06:53] LABS: Risk Ratio 4.48; VLDL CHOLESTEROL 33.2 MG/DL
[2019-03-19 06:55] LABS: Calcium 9.1 MG/DL (8.5-10.1); Osmolality,Calculated 278.1 MOS/KG (273-304)
[2019-03-19] MEDS ORDERED: REGADENOSON 0.4 MG/5 ML SYRINGE IV ONE (09:04)
[2019-03-19] MEDS: DILTIAZEM CD 240 MG CAPSULE PO SCH (10:41)
[2019-03-19] MEDS: ASCORBIC ACID 500 MG TABLET PO SCH (10:41)
[2019-03-19] MEDS: METOPROLOL TARTRATE 25 MG TABLET PO SCH ×2 (10:41→22:10)
[2019-03-19] MEDS: DOXAZOSIN 1 MG TABLET PO SCH (10:41)
[2019-03-19] MEDS: PANTOPRAZOLE 40 MG TABLET PO SCH (10:41)
[2019-03-19] MEDS: MULTIVITAMIN (CENTRUM) TABLET PO SCH (10:41)
[2019-03-19] MEDS: AMINO ACIDS PROTEIN HYDROLYS PO SCH (10:47)
[2019-03-19] MEDS: ENOXAPARIN 30 MG/0.3 ML SYRINGE SUBCUT SCH (18:25)
[2019-03-20 05:21] LABS: Basophils # 0.1 10*3/uL (0.0-0.2); Basophils % 0.6 % (0.0-0.8); Eosinophils % 12.1 % (0.00-10.9); Hematocrit 29.9 VOL% (42.0-52.0); Hemoglobin 9.5 GM/DL (14.0-18.0); Immature Granulocytes % 0.2 %; Immature Granulocytes Absolute 0.02 #; Lymphocytes # 2.2 10*3/uL (1.4-4.0); Lymphocytes % 25.9 % (21.2-54.2); Mean Corpuscular HGB Conc 31.8 GM/DL (32-36); Mean Corpuscular Volume 85.9 FL (87-102); Mean Platelet Volume 10.5 FL (9.6-12.0); Monocytes % 8.6 % (1.7-12.7); Neutrophils % 52.6 % (38.7-73.9); Platelet Count 320 T/CUMM (130-400); Red Blood Count 3.48 MC/CUMM (3.8-5.5); Red Cell Distribution Width 15.9 % (9.3-17.3); White Blood Count 8.3 T/CUMM (4-12)
[2019-03-20 05:35] LABS: Calcium 9.2 MG/DL (8.5-10.1); Osmolality,Calculated 288.7 MOS/KG (273-304)
[2019-03-20 05:55] LABS: Band Neutrophils 4 % (0-10); Eosinophils 13 % (0-10); Lymphocytes 24 % (20-55); Segmented Neutrophils 52 % (50-85); Total Cells Counted 100
[2019-03-20 05:56] LABS: Platelet Estimate Normal
[2019-03-20 10:10] LABS: Hepatitis B Core IgM Quant 0.07 Index; Hepatitis B Surface Ag Quant < 0.10 Index; Hepatitis B Surface Ag Result Negative (Negative); Hepatitis C Virus Ab Quant < 0.02 Index; Hepatitis C Virus Ab Result Negative (Negative)
[2019-03-20 12:36] VITALS: BP 117/65
[2019-03-20] MEDS: AMINO ACIDS PROTEIN HYDROLYS PO SCH (13:39)
[2019-03-20] MEDS: METOPROLOL TARTRATE 25 MG TABLET PO SCH (13:40)
[2019-03-20] MEDS: PANTOPRAZOLE 40 MG TABLET PO SCH (13:40)
[2019-03-20] MEDS: MULTIVITAMIN (CENTRUM) TABLET PO SCH (13:40)
[2019-03-20] MEDS: ASCORBIC ACID 500 MG TABLET PO SCH (13:40)
[2019-03-20] MEDS: DILTIAZEM CD 240 MG CAPSULE PO SCH (13:41)
[2019-03-20] MEDS: DOXAZOSIN 1 MG TABLET PO SCH (13:41)
== END 2019-03-20 15:35 ==
LOC: EDBD → EDUNIT# → N.EDINP 14:35 → N.ED 14:35 → N.TELES 17:37
PROVIDERS: ADMIT Internal Medicine; ATTEND Internal Medicine

== ENCOUNTER 2019-09-19 15:49 | Inpatient (IN) ==
[2019-09-19 16:36] LABS: Basophils % 0.2 % (0.0-0.8); Eosinophils % 0.2 % (0.00-10.9); Hematocrit 34.3 VOL% (42.0-52.0); Hemoglobin 11.1 GM/DL (14.0-18.0); Immature Granulocytes % 0.2 %; Immature Granulocytes Absolute 0.01 #; Lymphocytes # 1.6 10*3/uL (1.4-4.0); Lymphocytes % 35.6 % (21.2-54.2); Mean Corpuscular HGB Conc 32.4 GM/DL (32-36); Mean Corpuscular Volume 84.7 FL (87-102); Mean Platelet Volume 10.4 FL (9.6-12.0); Monocytes % 13.4 % (1.7-12.7); Neutrophils % 50.4 % (38.7-73.9); Platelet Count 255 T/CUMM (130-400); Red Blood Count 4.05 MC/CUMM (3.8-5.5); Red Cell Distribution Width 15.9 % (9.3-17.3); White Blood Count 4.5 T/CUMM (4-12)
[2019-09-19 17:09] LABS: ABG Base Excess 3.1 MMOL/L (-2.5-2.5); ABG HCO3 27.1 MMOL/L (20-26); ABG Oxygen Saturation 94.9 % (95-100); ABG PH 7.451 (7.35-7.45); ABG PO2 68.4 MM HG (80-95); ABG TCO2 24.2 MMOL/L (23-27)
[2019-09-19 17:09] LABS: Bilirubin,Total 0.4 MG/DL (0.2-1.0); Calcium 9.1 MG/DL (8.5-10.1); Osmolality,Calculated 267.7 MOS/KG (273-304); Total Protein 8.2 G/DL (6.4-8.3)
[2019-09-19] MEDS ORDERED: cefTRIAXone 1,000 MG in SODIUM CHLORIDE 0.9% 100 ML IV STA (17:17)
[2019-09-19] MEDS ORDERED: AZITHROMYCIN 250 MG TABLET PO STA (17:17)
[2019-09-19] MEDS ORDERED: SODIUM CHLORIDE 0.9% 500 ML IV STA (17:21)
[2019-09-19] MEDS ORDERED: ONDANSETRON 4 MG/2 ML VIAL IV PRN (18:13)
[2019-09-19] MEDS ORDERED: SODIUM CHLORIDE 0.9% 500 ML IV ONE (18:49)
[2019-09-19] MEDS ORDERED: NOREPINEPHRINE 8 MG in SODIUM CHLORIDE 0.9% 242 ML IV PRN (19:55)
[2019-09-19] MEDS ORDERED: ENOXAPARIN 30 MG/0.3 ML SYRINGE SUBCUT SCH (21:00)
[2019-09-19] MEDS ORDERED: VANCOMYCIN INJ 1,500 MG in SODIUM CHLORIDE 0.9% 500 ML IV ONE (21:00)
[2019-09-19] MEDS: HEPARIN 5,000 UNIT/1 ML VIAL SUBCUT SCH (21:40)
[2019-09-19] MEDS: cilostazoL 100 MG TABLET PO SCH (21:40)
[2019-09-20] MEDS: ACETAMINOPHEN 500 MG TABLET PO PRN ×2 (04:16→16:33)
[2019-09-20 04:50] LABS: Basophils % 0.4 % (0.0-0.8); Eosinophils % 0.2 % (0.00-10.9); Hematocrit 35.9 VOL% (42.0-52.0); Hemoglobin 11.4 GM/DL (14.0-18.0); Immature Granulocytes % 0.2 %; Immature Granulocytes Absolute 0.01 #; Lymphocytes # 1.7 10*3/uL (1.4-4.0); Lymphocytes % 36.2 % (21.2-54.2); Mean Corpuscular HGB Conc 31.8 GM/DL (32-36); Mean Corpuscular Volume 85.7 FL (87-102); Mean Platelet Volume 10.2 FL (9.6-12.0); Monocytes % 10.7 % (1.7-12.7); Neutrophils % 52.3 % (38.7-73.9); Platelet Count 232 T/CUMM (130-400); Red Blood Count 4.19 MC/CUMM (3.8-5.5); Red Cell Distribution Width 15.9 % (9.3-17.3); White Blood Count 4.6 T/CUMM (4-12)
[2019-09-20 05:07] LABS: Alanine Aminotransferase 22 U/L (16-61); Alkaline Phosphatase 79 U/L (45-117); Aspartate Amino Transferase 46 U/L (0-37); Bilirubin,Total < 0.39 MG/DL (0.2-1.0); Blood Urea Nitrogen 37 MG/DL (7-18); Calcium 8.8 MG/DL (8.5-10.1); Estimated Glom Filtration Rate 9 ML/MIN; Glucose 82 MG/DL (74-106); Osmolality,Calculated 271.5 MOS/KG (273-304); Total Protein 8.1 G/DL (6.4-8.3)
[2019-09-20] MEDS: HEPARIN 5,000 UNIT/1 ML VIAL SUBCUT SCH ×3 (06:20→20:31)
[2019-09-20] MEDS: ASCORBIC ACID 500 MG TABLET PO SCH (10:50)
[2019-09-20] MEDS: MULTIVITAMIN (OCUVITE) TABLET PO SCH (10:51)
[2019-09-20] MEDS: PANTOPRAZOLE 40 MG TABLET PO SCH (10:51)
[2019-09-20] MEDS: cilostazoL 100 MG TABLET PO SCH ×2 (10:51→20:31)
[2019-09-20] MEDS ORDERED: HYDROXYCHLOROQUINE 200 MG TABLET PO SCH (11:30)
[2019-09-20] MEDS: ZINC SULFATE 220 MG CAPSULE PO SCH (12:00)
[2019-09-20] MEDS ORDERED: HEPARIN 10,000 UNIT/10 ML VIAL IV SCH (15:00)
[2019-09-20] MEDS ORDERED: VANCOMYCIN INJ 500 MG in SODIUM CHLORIDE 0.9% 250 ML IV PRN (17:00)
[2019-09-20] MEDS: cefTRIAXone 1,000 MG in SYRINGE 1 EACH IV SCH ×2 (18:00→18:26)
[2019-09-20] MEDS ORDERED: AZITHROMYCIN INJ 500 MG in SODIUM CHLORIDE 0.9% 250 ML IV SCH (18:00)
[2019-09-21 03:23] LABS: Basophils % 0.5 % (0.0-0.8); Eosinophils % 0.5 % (0.00-10.9); Hematocrit 32.8 VOL% (42.0-52.0); Hemoglobin 10.7 GM/DL (14.0-18.0); Immature Granulocytes % 0.2 %; Immature Granulocytes Absolute 0.01 #; Lymphocytes # 1.4 10*3/uL (1.4-4.0); Lymphocytes % 34.4 % (21.2-54.2); Mean Corpuscular HGB Conc 32.6 GM/DL (32-36); Mean Corpuscular Volume 82.6 FL (87-102); Mean Platelet Volume 10.3 FL (9.6-12.0); Neutrophils % 55.4 % (38.7-73.9); Platelet Count 229 T/CUMM (130-400); Red Blood Count 3.97 MC/CUMM (3.8-5.5); Red Cell Distribution Width 15.8 % (9.3-17.3); White Blood Count 4.1 T/CUMM (4-12)
[2019-09-21 03:42] LABS: Alanine Aminotransferase 24 U/L (16-61); Alkaline Phosphatase 78 U/L (45-117); Aspartate Amino Transferase 53 U/L (0-37); Bilirubin,Total < 0.39 MG/DL (0.2-1.0); Blood Urea Nitrogen 24 MG/DL (7-18); Calcium 8.7 MG/DL (8.5-10.1); Estimated Glom Filtration Rate 10 ML/MIN; Glucose 81 MG/DL (74-106); Osmolality,Calculated 266.5 MOS/KG (273-304); Total Protein 7.8 G/DL (6.4-8.3)
[2019-09-21] MEDS: HEPARIN 5,000 UNIT/1 ML VIAL SUBCUT SCH ×3 (05:00→20:29)
[2019-09-21] MEDS: MULTIVITAMIN (OCUVITE) TABLET PO SCH (09:27)
[2019-09-21] MEDS: PANTOPRAZOLE 40 MG TABLET PO SCH (09:27)
[2019-09-21] MEDS: AZITHROMYCIN 250 MG TABLET PO SCH (09:27)
[2019-09-21] MEDS: cilostazoL 100 MG TABLET PO SCH ×2 (09:27→20:29)
[2019-09-21] MEDS: ASCORBIC ACID 500 MG TABLET PO SCH (09:27)
[2019-09-21] MEDS: ACETAMINOPHEN 325 MG TABLET PO PRN ×2 (09:28→20:30)
[2019-09-21] MEDS: HYDROXYCHLOROQUINE 200 MG TABLET PO SCH ×2 (10:44→20:29)
[2019-09-21] MEDS: cefTRIAXone 1,000 MG in SYRINGE 1 EACH IV SCH (18:13)
[2019-09-22] MEDS: HEPARIN 5,000 UNIT/1 ML VIAL SUBCUT SCH ×3 (05:19→21:29)
[2019-09-22] MEDS: cilostazoL 100 MG TABLET PO SCH ×2 (09:28→21:30)
[2019-09-22] MEDS: AZITHROMYCIN 250 MG TABLET PO SCH (09:28)
[2019-09-22] MEDS: PANTOPRAZOLE 40 MG TABLET PO SCH (09:28)
[2019-09-22] MEDS: MULTIVITAMIN (OCUVITE) TABLET PO SCH (09:28)
[2019-09-22] MEDS: HYDROXYCHLOROQUINE 200 MG TABLET PO SCH ×2 (09:28→21:30)
[2019-09-22] MEDS: ASCORBIC ACID 500 MG TABLET PO SCH (09:28)
[2019-09-22] MEDS: ZINC SULFATE 220 MG CAPSULE PO SCH (11:02)
[2019-09-22] MEDS: cefTRIAXone 1,000 MG in SYRINGE 1 EACH IV SCH (17:31)
[2019-09-22] MEDS: ACETAMINOPHEN 325 MG TABLET PO PRN (21:30)
[2019-09-23 03:40] LABS: Basophils % 0.5 % (0.0-0.8); Eosinophils # 0.1 10*3/uL (0.0-0.87); Eosinophils % 1.4 % (0.00-10.9); Hematocrit 35.4 VOL% (42.0-52.0); Hemoglobin 11.2 GM/DL (14.0-18.0); Immature Granulocytes % 0.5 %; Immature Granulocytes Absolute 0.02 #; Lymphocytes % 45.8 % (21.2-54.2); Mean Corpuscular HGB Conc 31.6 GM/DL (32-36); Mean Corpuscular Volume 84.3 FL (87-102); Mean Platelet Volume 10.2 FL (9.6-12.0); Monocytes % 9.9 % (1.7-12.7); Neutrophils % 41.9 % (38.7-73.9); Platelet Count 260 T/CUMM (130-400); Red Cell Distribution Width 15.7 % (9.3-17.3); White Blood Count 4.3 T/CUMM (4-12)
[2019-09-23 04:18] LABS: Calcium 9.4 MG/DL (8.5-10.1); Osmolality,Calculated 271.8 MOS/KG (273-304)
[2019-09-23] MEDS: HEPARIN 5,000 UNIT/1 ML VIAL SUBCUT SCH ×3 (04:32→21:10)
[2019-09-23] MEDS: PANTOPRAZOLE 40 MG TABLET PO SCH (09:48)
[2019-09-23] MEDS: ACETAMINOPHEN 325 MG TABLET PO PRN ×2 (09:49→20:30)
[2019-09-23] MEDS: MULTIVITAMIN (OCUVITE) TABLET PO SCH (09:49)
[2019-09-23] MEDS: cilostazoL 100 MG TABLET PO SCH ×2 (09:49→21:05)
[2019-09-23] MEDS: HYDROXYCHLOROQUINE 200 MG TABLET PO SCH ×2 (09:49→21:05)
[2019-09-23] MEDS: cefTRIAXone 1,000 MG in SYRINGE 1 EACH IV SCH (09:49)
[2019-09-23] MEDS: ASCORBIC ACID 500 MG TABLET PO SCH (11:56)
[2019-09-24] MEDS: ACETAMINOPHEN 325 MG TABLET PO PRN ×2 (01:15→08:38)
[2019-09-24] MEDS: HEPARIN 5,000 UNIT/1 ML VIAL SUBCUT SCH ×3 (06:15→20:50)
[2019-09-24] MEDS: MULTIVITAMIN (OCUVITE) TABLET PO SCH (08:37)
[2019-09-24] MEDS: HYDROXYCHLOROQUINE 200 MG TABLET PO SCH ×2 (08:37→20:50)
[2019-09-24] MEDS: PANTOPRAZOLE 40 MG TABLET PO SCH (08:38)
[2019-09-24] MEDS: cilostazoL 100 MG TABLET PO SCH ×2 (08:38→20:50)
[2019-09-24] MEDS: ASCORBIC ACID 500 MG TABLET PO SCH (08:39)
[2019-09-24] MEDS: cefTRIAXone 1,000 MG in SYRINGE 1 EACH IV SCH (08:39)
[2019-09-24] MEDS: ZINC SULFATE 220 MG CAPSULE PO SCH (08:39)
[2019-09-24] MEDS: DILTIAZEM CD 240 MG CAPSULE PO SCH (09:42)
[2019-09-24] MEDS: DOXAZOSIN 1 MG TABLET PO SCH (09:42)
[2019-09-24] MEDS: METOPROLOL TARTRATE 25 MG TABLET PO SCH ×2 (09:43→20:50)
[2019-09-24 11:01] LABS: ABG Base Excess -2.5 MMOL/L (-2.5-2.5); ABG HCO3 22.3 MMOL/L (20-26); ABG Oxygen Saturation 95.2 % (95-100); ABG PCO2 31.1 MM HG (35-48); ABG PH 7.433 (7.35-7.45); ABG TCO2 18.3 MMOL/L (23-27)
[2019-09-25 03:51] LABS: ABG HCO3 21.8 MMOL/L (20-26); ABG Oxygen Saturation 92.8 % (95-100); ABG PCO2 26.6 MM HG (35-48); ABG PH 7.468 (7.35-7.45); ABG PO2 59.7 MM HG (80-95); ABG TCO2 16.8 MMOL/L (23-27); Allen Test Positive
[2019-09-25 04:19] LABS: Alanine Aminotransferase 27 U/L (16-61); Albumin 2.8 G/DL (3.4-5.0); Alkaline Phosphatase 71 U/L (45-117); Aspartate Amino Transferase 52 U/L (0-37); Bilirubin,Total < 0.39 MG/DL (0.2-1.0); Blood Urea Nitrogen 42 MG/DL (7-18); Calcium 9.2 MG/DL (8.5-10.1); Estimated Glom Filtration Rate 5 ML/MIN; Glucose 86 MG/DL (74-106); Osmolality,Calculated 267.9 MOS/KG (273-304); Total Protein 8.5 G/DL (6.4-8.3)
[2019-09-25] MEDS: HEPARIN 5,000 UNIT/1 ML VIAL SUBCUT SCH ×3 (05:28→21:58)
[2019-09-25] MEDS: METOPROLOL TARTRATE 25 MG TABLET PO SCH ×2 (09:29→21:58)
[2019-09-25] MEDS: PANTOPRAZOLE 40 MG TABLET PO SCH (09:29)
[2019-09-25] MEDS: MULTIVITAMIN (OCUVITE) TABLET PO SCH (09:29)
[2019-09-25] MEDS: DILTIAZEM CD 240 MG CAPSULE PO SCH (09:29)
[2019-09-25] MEDS: DOXAZOSIN 1 MG TABLET PO SCH (09:29)
[2019-09-25] MEDS: ASCORBIC ACID 500 MG TABLET PO SCH (09:29)
[2019-09-25] MEDS: cilostazoL 100 MG TABLET PO SCH ×2 (09:29→21:58)
[2019-09-26 00:26] VITALS: BP 106/52
== END 2019-09-26 00:15 | DRG 177 ==
LOC: EDUNIT# → EDBD → N.ED 15:49 → SUATTDRO 17:56 → N.EDINP 17:56 → N.2E 18:21 → N.ICU 20:10 → N.2W 09-20 18:15
PROVIDERS: ADMIT Family Medicine; ATTEND Internal Medicine

== ENCOUNTER 2019-09-26 14:42 | Observation (INO) ==
[2019-09-26] MEDS ORDERED: ACETAMINOPHEN 325 MG TABLET PO PRN (15:30)
[2019-09-26] MEDS ORDERED: diphenhydrAMINE CAP 25 MG CAPSULE PO PRN (15:30)
[2019-09-26] MEDS ORDERED: CALCIUM CARBONATE CHEW 500 MG TABLET PO PRN (15:30)
[2019-09-26] MEDS ORDERED: guaiFENesin/DM ER 600-30 MG TABLET PO PRN (15:30)
[2019-09-26] MEDS ORDERED: LACTULOSE 20 GM/30 ML UDCUP PO PRN (15:30)
[2019-09-26] MEDS ORDERED: GLUCAGON 1 MG VIAL IM PRN (15:30)
[2019-09-26] MEDS ORDERED: hydrALAZINE 20 MG/1 ML VIAL IV PRN (15:30)
[2019-09-26] MEDS ORDERED: ALUMINUM/MAGNES/SIMETH MAX STR 30 ML UDCUP PO PRN (15:30)
[2019-09-26] MEDS ORDERED: DEXTROSE 10% 250 ML BAG IV PRN (20:59)
[2019-09-27 05:13] LABS: Basophils % 0.3 % (0.0-0.8); Eosinophils # 0.1 10*3/uL (0.0-0.87); Eosinophils % 1.5 % (0.00-10.9); Hematocrit 35.9 VOL% (42.0-52.0); Immature Granulocytes % 0.4 %; Immature Granulocytes Absolute 0.03 #; Lymphocytes # 1.3 10*3/uL (1.4-4.0); Lymphocytes % 17.3 % (21.2-54.2); Mean Corpuscular HGB Conc 33.4 GM/DL (32-36); Mean Corpuscular Volume 81.6 FL (87-102); Mean Platelet Volume 10.6 FL (9.6-12.0); Monocytes % 10.1 % (1.7-12.7); Neutrophils % 70.4 % (38.7-73.9); Platelet Count 260 T/CUMM (130-400); Red Cell Distribution Width 15.2 % (9.3-17.3); White Blood Count 7.4 T/CUMM (4-12)
[2019-09-27 05:37] LABS: Albumin 2.8 G/DL (3.4-5.0); Bilirubin,Total 1.4 MG/DL (0.2-1.0); Calcium 9.4 MG/DL (8.5-10.1); Osmolality,Calculated 272.5 MOS/KG (273-304); Total Protein 8.7 G/DL (6.4-8.3)
[2019-09-27] MEDS ORDERED: HEPARIN 10,000 UNIT/10 ML VIAL IV PRN (06:45)
[2019-09-27] MEDS ORDERED: PANTOPRAZOLE 40 MG TABLET PO SCH (09:00)
[2019-09-27] MEDS: cilostazoL 100 MG TABLET PO SCH ×2 (09:30→21:00)
[2019-09-27] MEDS: ASCORBIC ACID 500 MG TABLET PO SCH (09:30)
[2019-09-27] MEDS: PANTOPRAZOLE 40 MG TABLET PO SCH ×2 (09:30→16:20)
[2019-09-27] MEDS: MULTIVITAMIN (OCUVITE) TABLET PO SCH (09:30)
[2019-09-27] MEDS: MIDODRINE 2.5 MG TABLET PO SCH ×2 (10:19→21:00)
[2019-09-28] MEDS ORDERED: ACETAMINOPHEN 500 MG TABLET PO ONE ×2 (07:12→09:30)
[2019-09-28] MEDS: MULTIVITAMIN (OCUVITE) TABLET PO SCH (09:52)
[2019-09-28] MEDS: cilostazoL 100 MG TABLET PO SCH ×2 (09:52→21:01)
[2019-09-28] MEDS: MIDODRINE 2.5 MG TABLET PO SCH ×2 (09:52→21:01)
[2019-09-28] MEDS: ASCORBIC ACID 500 MG TABLET PO SCH (09:52)
[2019-09-28] MEDS: PANTOPRAZOLE 40 MG TABLET PO SCH ×2 (09:52→16:22)
[2019-09-28] MEDS ORDERED: ALBUMIN 25% 25 GM in PREMIX 1 EACH IV ONE (14:00)
[2019-09-28] MEDS ORDERED: AZITHROMYCIN 250 MG TABLET PO ONE (16:00)
[2019-09-28] MEDS ORDERED: cefTRIAXone 1,000 MG in SYRINGE 1 EACH IV SCH (16:00)
[2019-09-28] MEDS ORDERED: AZITHROMYCIN INJ 500 MG in SODIUM CHLORIDE 0.9% 250 ML IV SCH (18:00)
[2019-09-29 03:59] LABS: Basophils % 0.2 % (0.0-0.8); Eosinophils # 0.1 10*3/uL (0.0-0.87); Eosinophils % 2.4 % (0.00-10.9); Hematocrit 30.2 VOL% (42.0-52.0); Hemoglobin 9.9 GM/DL (14.0-18.0); Immature Granulocytes % 0.4 %; Immature Granulocytes Absolute 0.02 #; Lymphocytes # 1.2 10*3/uL (1.4-4.0); Lymphocytes % 23.5 % (21.2-54.2); Mean Corpuscular HGB Conc 32.8 GM/DL (32-36); Mean Corpuscular Volume 82.3 FL (87-102); Mean Platelet Volume 10.4 FL (9.6-12.0); Monocytes % 12.1 % (1.7-12.7); Neutrophils % 61.4 % (38.7-73.9); Platelet Count 268 T/CUMM (130-400); Red Blood Count 3.67 MC/CUMM (3.8-5.5); Red Cell Distribution Width 14.8 % (9.3-17.3); White Blood Count 4.9 T/CUMM (4-12)
[2019-09-29 04:27] LABS: Calcium 8.8 MG/DL (8.5-10.1); Osmolality,Calculated 274.4 MOS/KG (273-304)
[2019-09-29] MEDS ORDERED: ACETAMINOPHEN 500 MG TABLET PO ONE (06:46)
[2019-09-29] MEDS ORDERED: AZITHROMYCIN 250 MG TABLET PO SCH (09:00)
[2019-09-29] MEDS: PANTOPRAZOLE 40 MG TABLET PO SCH (10:32)
[2019-09-29] MEDS: ASCORBIC ACID 500 MG TABLET PO SCH (10:32)
[2019-09-29] MEDS: MIDODRINE 2.5 MG TABLET PO SCH (10:32)
[2019-09-29] MEDS: MULTIVITAMIN (OCUVITE) TABLET PO SCH (10:32)
[2019-09-29] MEDS: cilostazoL 100 MG TABLET PO SCH (10:32)
[2019-09-29 11:45] VITALS: BP 93/52
== END 2019-09-29 11:30 ==
LOC: EDUNIT# → EDBD → N.ED 14:42 → N.EDINP 14:42 → SUATTDRO 15:30 → N.2W 17:38
PROVIDERS: ADMIT Internal Medicine; ATTEND Internal Medicine

== ENCOUNTER 2019-10-24 12:02 | Inpatient (IN) ==
[2019-10-24] MEDS ORDERED: SODIUM CHLORIDE 0.9% 1,000 ML IV STA (12:35)
[2019-10-24 13:17] LABS: Basophils # 0.1 10*3/uL (0.0-0.2); Basophils % 0.4 % (0.0-0.8); Eosinophils # 0.1 10*3/uL (0.0-0.87); Eosinophils % 1.2 % (0.00-10.9); Hematocrit 36.1 VOL% (42.0-52.0); Hemoglobin 11.4 GM/DL (14.0-18.0); Immature Granulocytes % 0.5 %; Immature Granulocytes Absolute 0.06 #; Lymphocytes # 1.4 10*3/uL (1.4-4.0); Lymphocytes % 11.8 % (21.2-54.2); Mean Corpuscular HGB Conc 31.6 GM/DL (32-36); Mean Corpuscular Volume 85.1 FL (87-102); Mean Platelet Volume 10.2 FL (9.6-12.0); Monocytes % 7.3 % (1.7-12.7); Neutrophils % 78.8 % (38.7-73.9); Platelet Count 376 T/CUMM (130-400); Red Blood Count 4.24 MC/CUMM (3.8-5.5); Red Cell Distribution Width 16.1 % (9.3-17.3); White Blood Count 11.7 T/CUMM (4-12)
[2019-10-24 13:34] LABS: Albumin 3.3 G/DL (3.4-5.0); Bilirubin,Total 0.6 MG/DL (0.2-1.0); Calcium 10.8 MG/DL (8.5-10.1); Osmolality,Calculated 277.5 MOS/KG (273-304); Total Protein 9.4 G/DL (6.4-8.3)
[2019-10-24] MEDS ORDERED: AMPICILLIN/SULBACTAM 3,000 MG in SODIUM CHLORIDE 0.9% 100 ML IV STA (15:01)
[2019-10-24] MEDS ORDERED: KETOROLAC 15 MG/1 ML VIAL IV PRN (15:51)
[2019-10-24] MEDS ORDERED: ACETAMINOPHEN 325 MG TABLET PO PRN (15:51)
[2019-10-24] MEDS ORDERED: MORPHINE 4 MG/1 ML VIAL IV PRN (15:51)
[2019-10-24] MEDS ORDERED: ALBUTEROL/IPRATROPIUM 3 ML NEB RESP TX PRN (15:51)
[2019-10-24] MEDS ORDERED: PROMETHAZINE INJ 25 MG in SODIUM CHLORIDE 0.9% 50 ML IV PRN (17:08)
[2019-10-24] MEDS ORDERED: ONDANSETRON 4 MG/2 ML VIAL IV PRN (17:08)
[2019-10-24 17:51] LABS: PT Patient Result 10.8 SECS (9.8-11.9); Partial Thromboplastin Time 76.3 SECS (23.9-33.8)
[2019-10-24] MEDS ORDERED: MEPERIDINE 25 MG/1 ML VIAL ONE ×2 (18:35→18:53)
[2019-10-24] MEDS ORDERED: ONDANSETRON 4 MG/2 ML VIAL ONE ×2 (18:36→18:45)
[2019-10-24] MEDS ORDERED: SUGAMMADEX 200 MG/2 ML VIAL IV ONE (18:38)
[2019-10-24] MEDS: MEPERIDINE 25 MG/1 ML VIAL IV PRN ×2 (18:40→18:55)
[2019-10-24] MEDS ORDERED: propofoL 200 MG/20 ML VIAL IV ONE (18:44)
[2019-10-24] MEDS ORDERED: fentaNYL 100 MCG/2 ML VIAL ONE (18:44)
[2019-10-24] MEDS ORDERED: SEVOFLURANE 1 UNIT/15 MINUTE INH ONE (18:44)
[2019-10-24] MEDS ORDERED: LIDOCAINE 2% 5 ML VIAL ONE (18:44)
[2019-10-24] MEDS ORDERED: PHENYLEPHRINE DRIP 20 MG/250 ML PREMIX IV ONE (18:44)
[2019-10-24] MEDS ORDERED: ePHEDrine 50 MG/ML VIAL ONE (18:44)
[2019-10-24] MEDS ORDERED: ETOMIDATE 40 MG/20 ML VIAL IV ONE (18:45)
[2019-10-24] MEDS ORDERED: PHENYLEPHRINE 1 MG/10 ML SYRINGE IV ONE (18:45)
[2019-10-24] MEDS ORDERED: SUCCINYLCHOLINE 200 MG/10 ML VIAL ONE (18:45)
[2019-10-24] MEDS ORDERED: ROCURONIUM 100 MG/10 ML VIAL IV ONE (18:45)
[2019-10-24 19:32] LABS: Basophils % 0.3 % (0.0-0.8); Eosinophils # 0.1 10*3/uL (0.0-0.87); Eosinophils % 1.3 % (0.00-10.9); Hematocrit 34.5 VOL% (42.0-52.0); Hemoglobin 10.7 GM/DL (14.0-18.0); Immature Granulocytes % 0.5 %; Immature Granulocytes Absolute 0.05 #; Lymphocytes # 1.5 10*3/uL (1.4-4.0); Lymphocytes % 15.8 % (21.2-54.2); Mean Corpuscular Volume 86.9 FL (87-102); Mean Platelet Volume 9.8 FL (9.6-12.0); Monocytes % 5.5 % (1.7-12.7); Neutrophils % 76.6 % (38.7-73.9); Platelet Count 300 T/CUMM (130-400); Red Blood Count 3.97 MC/CUMM (3.8-5.5); Red Cell Distribution Width 16.3 % (9.3-17.3); White Blood Count 9.2 T/CUMM (4-12)
[2019-10-24 19:52] LABS: Alanine Aminotransferase 11 U/L (16-61); Albumin 2.5 G/DL (3.4-5.0); Alkaline Phosphatase 94 U/L (45-117); Aspartate Amino Transferase 14 U/L (0-37); Bilirubin,Total < 0.39 MG/DL (0.2-1.0); Blood Urea Nitrogen 54 MG/DL (7-18); Calcium 8.8 MG/DL (8.5-10.1); Estimated Glom Filtration Rate 6 ML/MIN; Glucose 177 MG/DL (74-106); Osmolality,Calculated 288.1 MOS/KG (273-304); Total Protein 7.2 G/DL (6.4-8.3)
[2019-10-24] MEDS: VASOPRESSIN 100 UNITS in SODIUM CHLORIDE 0.9% 95 ML IV PRN (20:25)
[2019-10-24] MEDS ORDERED: NOREPINEPHRINE 4 MG/4 ML VIAL IV ONE (22:41)
[2019-10-24] MEDS ORDERED: ALBUMIN 5% 25 GM in PREMIX 1 EACH IV ONE (23:00)
[2019-10-24] MEDS: ONDANSETRON 4 MG/2 ML VIAL IV PRN (23:20)
[2019-10-24] MEDS: NOREPINEPHRINE 8 MG in SODIUM CHLORIDE 0.9% 242 ML IV PRN (23:20)
[2019-10-25] MEDS: MORPHINE 4 MG/1 ML VIAL IV PRN ×3 (00:25→22:56)
[2019-10-25] MEDS: PIPERACILLIN/TAZOBACTAM 3,375 MG in SODIUM CHLORIDE 0.9% 100 ML IV SCH ×2 (01:00→11:36)
[2019-10-25 03:47] LABS: Basophils % 0.3 % (0.0-0.8); Eosinophils % 0.1 % (0.00-10.9); Hematocrit 26.1 VOL% (42.0-52.0); Hemoglobin 8.2 GM/DL (14.0-18.0); Immature Granulocytes % 0.3 %; Immature Granulocytes Absolute 0.02 #; Lymphocytes # 0.5 10*3/uL (1.4-4.0); Lymphocytes % 6.8 % (21.2-54.2); Mean Corpuscular HGB Conc 31.4 GM/DL (32-36); Mean Corpuscular Volume 88.2 FL (87-102); Mean Platelet Volume 10.3 FL (9.6-12.0); Monocytes % 6.6 % (1.7-12.7); Neutrophils % 85.9 % (38.7-73.9); Platelet Count 270 T/CUMM (130-400); Red Blood Count 2.96 MC/CUMM (3.8-5.5); Red Cell Distribution Width 16.3 % (9.3-17.3); White Blood Count 7.5 T/CUMM (4-12)
[2019-10-25 03:55] LABS: Calcium 7.9 MG/DL (8.5-10.1); Osmolality,Calculated 291.3 MOS/KG (273-304)
[2019-10-25 04:24] LABS: Band Neutrophils 11 % (0-10); Lymphocytes 8 % (20-55); Metamyelocytes 2 %; Segmented Neutrophils 73 % (50-85); Total Cells Counted 100
[2019-10-25 04:25] LABS: Hypochromasia 1+; Platelet Estimate Normal
[2019-10-25 04:26] LABS: Target Cells Few
[2019-10-25 04:27] LABS: Burr Cells 1+; Polychromasia Few
[2019-10-25] MEDS ORDERED: PANTOPRAZOLE 40 MG VIAL IV SCH (09:00)
[2019-10-25 17:48] LABS: Hematocrit 29.4 VOL% (42.0-52.0); Hemoglobin 9.4 GM/DL (14.0-18.0)
[2019-10-25] MEDS: VASOPRESSIN 100 UNITS in SODIUM CHLORIDE 0.9% 95 ML IV PRN (19:30)
[2019-10-25] MEDS: PANTOPRAZOLE 40 MG VIAL IV SCH (20:34)
[2019-10-26] MEDS: PIPERACILLIN/TAZOBACTAM 3,375 MG in SODIUM CHLORIDE 0.9% 100 ML IV SCH ×2 (00:58→12:12)
[2019-10-26] MEDS ORDERED: DIGOXIN 0.5 MG/2 ML AMP IV ONE ×2 (01:30→12:55)
[2019-10-26 03:58] LABS: Basophils # 0.1 10*3/uL (0.0-0.2); Basophils % 0.3 % (0.0-0.8); Eosinophils % 0.1 % (0.00-10.9); Hematocrit 29.4 VOL% (42.0-52.0); Hemoglobin 9.3 GM/DL (14.0-18.0); Immature Granulocytes % 0.8 %; Immature Granulocytes Absolute 0.15 #; Lymphocytes # 0.8 10*3/uL (1.4-4.0); Lymphocytes % 4.5 % (21.2-54.2); Mean Corpuscular HGB Conc 31.6 GM/DL (32-36); Mean Platelet Volume 10.6 FL (9.6-12.0); Monocytes % 3.6 % (1.7-12.7); Neutrophils % 90.7 % (38.7-73.9); Platelet Count 331 T/CUMM (130-400); Red Blood Count 3.46 MC/CUMM (3.8-5.5); Red Cell Distribution Width 16.6 % (9.3-17.3); White Blood Count 17.8 T/CUMM (4-12)
[2019-10-26 04:38] LABS: Albumin 2.4 G/DL (3.4-5.0); Bilirubin,Total 0.5 MG/DL (0.2-1.0); Calcium 9.6 MG/DL (8.5-10.1); Osmolality,Calculated 289.1 MOS/KG (273-304); Total Protein 7.6 G/DL (6.4-8.3)
[2019-10-26 04:44] LABS: Band Neutrophils 6 % (0-10); Hypochromasia 2+; Lymphocytes 8 % (20-55); Platelet Estimate Normal; Segmented Neutrophils 85 % (50-85); Total Cells Counted 100
[2019-10-26] MEDS: PANTOPRAZOLE 40 MG VIAL IV SCH ×2 (08:54→20:05)
[2019-10-26] MEDS ORDERED: HEPARIN 10,000 UNIT/10 ML VIAL IV SCH (11:00)
[2019-10-27] MEDS: PIPERACILLIN/TAZOBACTAM 3,375 MG in SODIUM CHLORIDE 0.9% 100 ML IV SCH ×2 (00:49→12:10)
[2019-10-27] MEDS: MORPHINE 4 MG/1 ML VIAL IV PRN ×2 (00:49→14:18)
[2019-10-27] MEDS: NOREPINEPHRINE 8 MG in SODIUM CHLORIDE 0.9% 242 ML IV PRN (02:20)
[2019-10-27 06:23] LABS: Basophils % 0.3 % (0.0-0.8); Eosinophils % 0.1 % (0.00-10.9); Hematocrit 27.6 VOL% (42.0-52.0); Hemoglobin 8.9 GM/DL (14.0-18.0); Immature Granulocytes % 0.8 %; Immature Granulocytes Absolute 0.13 #; Lymphocytes # 0.9 10*3/uL (1.4-4.0); Lymphocytes % 5.6 % (21.2-54.2); Mean Corpuscular HGB Conc 32.2 GM/DL (32-36); Mean Corpuscular Volume 84.1 FL (87-102); Mean Platelet Volume 10.5 FL (9.6-12.0); Monocytes % 2.3 % (1.7-12.7); Neutrophils % 90.9 % (38.7-73.9); Platelet Count 348 T/CUMM (130-400); Red Blood Count 3.28 MC/CUMM (3.8-5.5); Red Cell Distribution Width 15.9 % (9.3-17.3); White Blood Count 15.4 T/CUMM (4-12)
[2019-10-27 06:48] LABS: Band Neutrophils 3 % (0-10); Calcium 9.5 MG/DL (8.5-10.1); Hypochromasia 1+; Lymphocytes 6 % (20-55); Platelet Estimate Adequate; Segmented Neutrophils 86 % (50-85); Total Cells Counted 100
[2019-10-27] MEDS: PANTOPRAZOLE 40 MG VIAL IV SCH ×2 (09:10→21:04)
[2019-10-27] MEDS: ENOXAPARIN 30 MG/0.3 ML SYRINGE SUBCUT SCH (11:12)
[2019-10-27] MEDS ORDERED: GLUCAGON 1 MG VIAL IM PRN ×2 (15:10→18:45)
[2019-10-27] MEDS ORDERED: DEXTROSE 10% 1,000 ML IV PRN ×2 (15:10→18:45)
[2019-10-27] MEDS ORDERED: DEXTROSE 10% 250 ML BAG IV PRN (15:10)
[2019-10-27] MEDS ORDERED: MULTIVITAMIN INJ 10 ML in DEXTROSE 50% 400 ML, AMINO ACIDS 10% 600 ML IV SCH (17:00)
[2019-10-27] MEDS: INSULIN REGULAR 100 UNIT/ML SUBCUT SCH (18:10)
[2019-10-27] MEDS ORDERED: DEXTROSE 50% 25 GM/50 ML VIAL IV PRN (18:45)
[2019-10-27] MEDS ORDERED: AMINO ACIDS/DEXT/LYTES 4.25-5% 2,000 ML IV SCH (19:00)
[2019-10-28] MEDS: PIPERACILLIN/TAZOBACTAM 3,375 MG in SODIUM CHLORIDE 0.9% 100 ML IV SCH ×2 (00:36→12:09)
[2019-10-28] MEDS: INSULIN REGULAR 100 UNIT/ML SUBCUT SCH ×4 (00:36→18:39)
[2019-10-28 04:37] LABS: Basophils % 0.2 % (0.0-0.8); Eosinophils # 0.2 10*3/uL (0.0-0.87); Eosinophils % 1.7 % (0.00-10.9); Hematocrit 26.2 VOL% (42.0-52.0); Hemoglobin 8.6 GM/DL (14.0-18.0); Immature Granulocytes % 0.5 %; Immature Granulocytes Absolute 0.07 #; Lymphocytes # 0.8 10*3/uL (1.4-4.0); Lymphocytes % 6.2 % (21.2-54.2); Mean Corpuscular HGB Conc 32.8 GM/DL (32-36); Mean Corpuscular Volume 81.6 FL (87-102); Mean Platelet Volume 10.9 FL (9.6-12.0); NRBC # 0.02 10*3/uL; Neutrophils % 88.4 % (38.7-73.9); Platelet Count 318 T/CUMM (130-400); Red Blood Count 3.21 MC/CUMM (3.8-5.5); Red Cell Distribution Width 15.3 % (9.3-17.3); White Blood Count 12.9 T/CUMM (4-12)
[2019-10-28 05:01] LABS: Band Neutrophils 3 % (0-10); Eosinophils 1 % (0-10); Hypochromasia 1+; Lymphocytes 8 % (20-55); Microcytosis Slight; Nucleated Red Blood Cells 1 (0-5); Segmented Neutrophils 84 % (50-85); Target Cells Slight; Total Cells Counted 100
[2019-10-28 05:02] LABS: Atypical Lymphocytes Few
[2019-10-28 05:04] LABS: Calcium 9.8 MG/DL (8.5-10.1); Osmolality,Calculated 295.8 MOS/KG (273-304)
[2019-10-28 05:08] LABS: Prealbumin 14.6 MG/DL (20-40)
[2019-10-28] MEDS: PANTOPRAZOLE 40 MG VIAL IV SCH ×2 (09:02→21:01)
[2019-10-28] MEDS: ENOXAPARIN 30 MG/0.3 ML SYRINGE SUBCUT SCH (09:05)
[2019-10-28] MEDS: FAT EMULSION 20% 250 ML IV SCH (15:22)
[2019-10-28] MEDS: TRACE ELEMENTS IV SCH (17:03)
[2019-10-28] MEDS: AMINO ACIDS IV SCH (17:03)
[2019-10-28] MEDS: [UNRECOGNIZED DRUG - OTHER] IV SCH (17:03)
[2019-10-28] MEDS: MULTIVITAMIN IV SCH (17:03)
[2019-10-29] MEDS: PIPERACILLIN/TAZOBACTAM 3,375 MG in SODIUM CHLORIDE 0.9% 100 ML IV SCH ×2 (00:21→13:29)
[2019-10-29] MEDS: INSULIN REGULAR 100 UNIT/ML SUBCUT SCH ×4 (00:31→18:41)
[2019-10-29 05:14] LABS: Basophils % 0.4 % (0.0-0.8); Eosinophils # 0.5 10*3/uL (0.0-0.87); Eosinophils % 5.2 % (0.00-10.9); Hematocrit 25.3 VOL% (42.0-52.0); Lymphocytes # 1.4 10*3/uL (1.4-4.0); Lymphocytes % 13.5 % (21.2-54.2); Mean Corpuscular HGB Conc 31.6 GM/DL (32-36); Mean Platelet Volume 10.6 FL (9.6-12.0); Monocytes % 4.5 % (1.7-12.7); NRBC # 0.11 10*3/uL; Neutrophils % 75.4 % (38.7-73.9); Platelet Count 286 T/CUMM (130-400); Red Blood Count 3.05 MC/CUMM (3.8-5.5); Red Cell Distribution Width 15.2 % (9.3-17.3); White Blood Count 10.1 T/CUMM (4-12)
[2019-10-29 05:30] LABS: Osmolality,Calculated 310.5 MOS/KG (273-304)
[2019-10-29 05:40] LABS: Hypochromasia 1+; Platelet Estimate Adequate
[2019-10-29 05:41] LABS: Microcytosis Slight
[2019-10-29] MEDS: ENOXAPARIN 30 MG/0.3 ML SYRINGE SUBCUT SCH (13:28)
[2019-10-29] MEDS: PANTOPRAZOLE 40 MG VIAL IV SCH ×2 (13:28→21:08)
[2019-10-29] MEDS: FAT EMULSION 20% 250 ML IV SCH (13:30)
[2019-10-29] MEDS ORDERED: MINERAL OIL ENEMA 133 ML BOTTLE RECTAL ONE (14:11)
[2019-10-29] MEDS: MULTIVITAMIN IV SCH (18:41)
[2019-10-29] MEDS: [UNRECOGNIZED DRUG - OTHER] IV SCH (18:41)
[2019-10-29] MEDS: AMINO ACIDS IV SCH (18:41)
[2019-10-29] MEDS: TRACE ELEMENTS IV SCH (18:41)
[2019-10-30] MEDS: INSULIN REGULAR 100 UNIT/ML SUBCUT SCH ×4 (00:32→18:19)
[2019-10-30] MEDS: PIPERACILLIN/TAZOBACTAM 3,375 MG in SODIUM CHLORIDE 0.9% 100 ML IV SCH ×2 (00:32→11:57)
[2019-10-30] MEDS: ENOXAPARIN 30 MG/0.3 ML SYRINGE SUBCUT SCH (10:06)
[2019-10-30] MEDS: PANTOPRAZOLE 40 MG VIAL IV SCH ×2 (10:07→20:33)
[2019-10-30] MEDS: FAT EMULSION 20% 250 ML IV SCH (14:46)
[2019-10-30] MEDS: AMINO ACIDS IV SCH (18:17)
[2019-10-30] MEDS: [UNRECOGNIZED DRUG - OTHER] IV SCH (18:17)
[2019-10-30] MEDS: TRACE ELEMENTS IV SCH (18:17)
[2019-10-30] MEDS: MULTIVITAMIN IV SCH (18:17)
[2019-10-31] MEDS: PIPERACILLIN/TAZOBACTAM 3,375 MG in SODIUM CHLORIDE 0.9% 100 ML IV SCH ×2 (00:40→16:06)
[2019-10-31] MEDS: INSULIN REGULAR 100 UNIT/ML SUBCUT SCH ×4 (00:40→19:14)
[2019-10-31] MEDS: PANTOPRAZOLE 40 MG VIAL IV SCH ×3 (08:15→20:26)
[2019-10-31] MEDS: ENOXAPARIN 30 MG/0.3 ML SYRINGE SUBCUT SCH (09:18)
[2019-10-31 09:38] LABS: Albumin 2.1 G/DL (3.4-5.0); Bilirubin,Total 0.6 MG/DL (0.2-1.0); Calcium 9.9 MG/DL (8.5-10.1); Osmolality,Calculated 298.4 MOS/KG (273-304); Total Protein 8.2 G/DL (6.4-8.3)
[2019-10-31 09:46] LABS: Basophils # 0.1 10*3/uL (0.0-0.2); Basophils % 0.3 % (0.0-0.8); Eosinophils # 0.6 10*3/uL (0.0-0.87); Eosinophils % 3.3 % (0.00-10.9); Hematocrit 31.3 VOL% (42.0-52.0); Immature Granulocytes % 1.4 %; Immature Granulocytes Absolute 0.25 #; Lymphocytes # 2.5 10*3/uL (1.4-4.0); Lymphocytes % 13.6 % (21.2-54.2); Mean Corpuscular HGB Conc 31.9 GM/DL (32-36); Mean Corpuscular Volume 85.1 FL (87-102); Mean Platelet Volume 11.1 FL (9.6-12.0); Monocytes % 5.9 % (1.7-12.7); NRBC # 0.09 10*3/uL; Neutrophils % 75.5 % (38.7-73.9); Platelet Count 413 T/CUMM (130-400); Red Blood Count 3.68 MC/CUMM (3.8-5.5); Red Cell Distribution Width 16.7 % (9.3-17.3)
[2019-10-31 10:38] LABS: Anisocytosis 2+; Band Neutrophils 1 % (0-10); Eosinophils 7 % (0-10); Lymphocytes 17 % (20-55); Macrocytosis Slight; Nucleated Red Blood Cells 2 (0-5); Platelet Estimate Normal; Polychromasia Slight; Segmented Neutrophils 69 % (50-85); Target Cells Few; Total Cells Counted 100
[2019-10-31 10:39] LABS: Atypical Lymphocytes Few
[2019-10-31] MEDS ORDERED: ALTEPLASE 2 MG VIAL INTRACATH PRN (10:53)
[2019-10-31] MEDS ORDERED: ALTEPLASE 2 MG VIAL IV SCH (12:00)
[2019-10-31] MEDS: FAT EMULSION 20% 250 ML IV SCH (16:06)
[2019-10-31] MEDS: ONDANSETRON 4 MG/2 ML VIAL IV PRN (17:14)
[2019-10-31] MEDS: AMINO ACIDS IV SCH (17:29)
[2019-10-31] MEDS: [UNRECOGNIZED DRUG - OTHER] IV SCH (17:29)
[2019-10-31] MEDS: TRACE ELEMENTS IV SCH (17:29)
[2019-10-31] MEDS: MULTIVITAMIN IV SCH (17:29)
[2019-11-01] MEDS: INSULIN REGULAR 100 UNIT/ML SUBCUT SCH ×4 (00:01→18:24)
[2019-11-01] MEDS: PIPERACILLIN/TAZOBACTAM 3,375 MG in SODIUM CHLORIDE 0.9% 100 ML IV SCH ×2 (03:17→14:59)
[2019-11-01] MEDS ORDERED: LEVOFLOXACIN INJ 750 MG in PREMIX 1 EACH IV ONE (07:44)
[2019-11-01] MEDS: PANTOPRAZOLE 40 MG VIAL IV SCH ×2 (08:38→20:40)
[2019-11-01] MEDS: ENOXAPARIN 30 MG/0.3 ML SYRINGE SUBCUT SCH (09:14)
[2019-11-01] MEDS: FAT EMULSION 20% 250 ML IV SCH (14:59)
[2019-11-01] MEDS: [UNRECOGNIZED DRUG - OTHER] IV SCH (17:25)
[2019-11-01] MEDS: AMINO ACIDS IV SCH (17:25)
[2019-11-01] MEDS: MULTIVITAMIN IV SCH (17:25)
[2019-11-01] MEDS: TRACE ELEMENTS IV SCH (17:25)
[2019-11-02] MEDS: INSULIN REGULAR 100 UNIT/ML SUBCUT SCH ×4 (01:14→17:15)
[2019-11-02] MEDS: PIPERACILLIN/TAZOBACTAM 3,375 MG in SODIUM CHLORIDE 0.9% 100 ML IV SCH ×2 (01:15→15:21)
[2019-11-02 07:02] LABS: Basophils % 0.2 % (0.0-0.8); Eosinophils # 0.7 10*3/uL (0.0-0.87); Eosinophils % 5.5 % (0.00-10.9); Hematocrit 29.8 VOL% (42.0-52.0); Hemoglobin 9.7 GM/DL (14.0-18.0); Immature Granulocytes % 1.3 %; Immature Granulocytes Absolute 0.18 #; Lymphocytes # 1.8 10*3/uL (1.4-4.0); Lymphocytes % 13.5 % (21.2-54.2); Mean Corpuscular HGB Conc 32.6 GM/DL (32-36); Mean Corpuscular Volume 83.2 FL (87-102); Mean Platelet Volume 11.1 FL (9.6-12.0); Neutrophils % 68.5 % (38.7-73.9); Platelet Count 431 T/CUMM (130-400); Red Blood Count 3.58 MC/CUMM (3.8-5.5); Red Cell Distribution Width 17.5 % (9.3-17.3); White Blood Count 13.4 T/CUMM (4-12)
[2019-11-02 07:17] LABS: Calcium 9.4 MG/DL (8.5-10.1); Osmolality,Calculated 284.9 MOS/KG (273-304)
[2019-11-02 08:04] LABS: Band Neutrophils 12 % (0-10); Eosinophils 8 % (0-10); Lymphocytes 10 % (20-55); Metamyelocytes 1 %; Nucleated Red Blood Cells 1 (0-5); Platelet Estimate Normal; Segmented Neutrophils 58 % (50-85); Total Cells Counted 100
[2019-11-02 08:05] LABS: Anisocytosis 1+; Macrocytosis 1+; Polychromasia Slight
[2019-11-02] MEDS: PANTOPRAZOLE 40 MG VIAL IV SCH ×2 (08:40→20:34)
[2019-11-02] MEDS: ENOXAPARIN 30 MG/0.3 ML SYRINGE SUBCUT SCH ×2 (08:54→09:11)
[2019-11-02] MEDS: LEVOFLOXACIN INJ 500 MG in PREMIX 1 EACH IV SCH (15:19)
[2019-11-02] MEDS: FAT EMULSION 20% 250 ML IV SCH (15:45)
[2019-11-02] MEDS: MULTIVITAMIN IV SCH (18:45)
[2019-11-02] MEDS: [UNRECOGNIZED DRUG - OTHER] IV SCH (18:45)
[2019-11-02] MEDS: AMINO ACIDS IV SCH (18:45)
[2019-11-02] MEDS: TRACE ELEMENTS IV SCH (18:45)
[2019-11-03] MEDS: INSULIN REGULAR 100 UNIT/ML SUBCUT SCH ×4 (00:22→18:35)
[2019-11-03] MEDS: PIPERACILLIN/TAZOBACTAM 3,375 MG in SODIUM CHLORIDE 0.9% 100 ML IV SCH ×2 (01:05→13:37)
[2019-11-03] MEDS: PANTOPRAZOLE 40 MG VIAL IV SCH ×2 (09:08→22:47)
[2019-11-03] MEDS: ENOXAPARIN 30 MG/0.3 ML SYRINGE SUBCUT SCH (10:26)
[2019-11-03] MEDS: FAT EMULSION 20% 250 ML IV SCH (14:20)
[2019-11-03] MEDS: [UNRECOGNIZED DRUG - OTHER] IV SCH (17:14)
[2019-11-03] MEDS: AMINO ACIDS IV SCH (17:14)
[2019-11-03] MEDS: TRACE ELEMENTS IV SCH (17:14)
[2019-11-03] MEDS: MULTIVITAMIN IV SCH (17:14)
[2019-11-04] MEDS: INSULIN REGULAR 100 UNIT/ML SUBCUT SCH ×4 (01:12→18:22)
[2019-11-04] MEDS: PIPERACILLIN/TAZOBACTAM 3,375 MG in SODIUM CHLORIDE 0.9% 100 ML IV SCH ×2 (01:13→13:31)
[2019-11-04 07:14] LABS: Calcium 9.2 MG/DL (8.5-10.1); Osmolality,Calculated 274.2 MOS/KG (273-304)
[2019-11-04 08:15] LABS: Basophils # 0.1 10*3/uL (0.0-0.2); Basophils % 0.4 % (0.0-0.8); Eosinophils # 0.6 10*3/uL (0.0-0.87); Eosinophils % 4.3 % (0.00-10.9); Hematocrit 32.6 VOL% (42.0-52.0); Hemoglobin 10.3 GM/DL (14.0-18.0); Immature Granulocytes % 0.8 %; Immature Granulocytes Absolute 0.11 #; Lymphocytes # 1.4 10*3/uL (1.4-4.0); Lymphocytes % 10.3 % (21.2-54.2); Mean Corpuscular HGB Conc 31.6 GM/DL (32-36); Mean Corpuscular Volume 84.5 FL (87-102); Monocytes % 8.8 % (1.7-12.7); Neutrophils % 75.4 % (38.7-73.9); Platelet Count 551 T/CUMM (130-400); Red Blood Count 3.86 MC/CUMM (3.8-5.5); Red Cell Distribution Width 18.2 % (9.3-17.3)
[2019-11-04 08:39] LABS: Calcium 9.4 MG/DL (8.5-10.1); Osmolality,Calculated 273.2 MOS/KG (273-304)
[2019-11-04] MEDS: ENOXAPARIN 30 MG/0.3 ML SYRINGE SUBCUT SCH (09:12)
[2019-11-04] MEDS: PANTOPRAZOLE 40 MG VIAL IV SCH ×2 (09:12→21:13)
[2019-11-04] MEDS: POTASSIUM CHLORIDE 20 MEQ TABLET PO PRN ×3 (09:12→13:31)
[2019-11-04] MEDS: LEVOFLOXACIN INJ 500 MG in PREMIX 1 EACH IV SCH (10:59)
[2019-11-04] MEDS: TRACE ELEMENTS IV SCH (16:22)
[2019-11-04] MEDS: AMINO ACIDS IV SCH (16:22)
[2019-11-04] MEDS: MULTIVITAMIN IV SCH (16:22)
[2019-11-04] MEDS: [UNRECOGNIZED DRUG - OTHER] IV SCH (16:22)
[2019-11-04] MEDS: FAT EMULSION 20% 250 ML IV SCH (16:22)
[2019-11-04] MEDS: ONDANSETRON 4 MG/2 ML VIAL IV PRN (22:32)
[2019-11-05] MEDS: INSULIN REGULAR 100 UNIT/ML SUBCUT SCH ×4 (01:31→17:53)
[2019-11-05] MEDS: PIPERACILLIN/TAZOBACTAM 3,375 MG in SODIUM CHLORIDE 0.9% 100 ML IV SCH ×2 (01:47→12:19)
[2019-11-05 09:11] LABS: Basophils % 0.3 % (0.0-0.8); Eosinophils # 0.3 10*3/uL (0.0-0.87); Eosinophils % 1.6 % (0.00-10.9); Hematocrit 31.7 VOL% (42.0-52.0); Hemoglobin 10.3 GM/DL (14.0-18.0); Immature Granulocytes % 0.9 %; Immature Granulocytes Absolute 0.14 #; Lymphocytes # 1.3 10*3/uL (1.4-4.0); Lymphocytes % 8.2 % (21.2-54.2); Mean Corpuscular HGB Conc 32.5 GM/DL (32-36); Mean Corpuscular Volume 81.9 FL (87-102); Mean Platelet Volume 10.4 FL (9.6-12.0); Monocytes % 4.4 % (1.7-12.7); Neutrophils % 84.6 % (38.7-73.9); Platelet Count 592 T/CUMM (130-400); Red Blood Count 3.87 MC/CUMM (3.8-5.5); Red Cell Distribution Width 17.9 % (9.3-17.3); White Blood Count 15.9 T/CUMM (4-12)
[2019-11-05 09:31] LABS: Hypochromasia 1+
[2019-11-05 09:32] LABS: Platelet Estimate Adequate
[2019-11-05] MEDS: PANTOPRAZOLE 40 MG VIAL IV SCH ×2 (12:18→21:06)
[2019-11-05] MEDS: ENOXAPARIN 30 MG/0.3 ML SYRINGE SUBCUT SCH (12:18)
[2019-11-05] MEDS: FAT EMULSION 20% 250 ML IV SCH (16:19)
[2019-11-05] MEDS: AMINO ACIDS IV SCH (16:19)
[2019-11-05] MEDS: [UNRECOGNIZED DRUG - OTHER] IV SCH (16:19)
[2019-11-05] MEDS: TRACE ELEMENTS IV SCH (16:19)
[2019-11-05] MEDS: MULTIVITAMIN IV SCH (16:19)
[2019-11-05] MEDS: METOCLOPRAMIDE 10 MG/2 ML VIAL IV SCH ×2 (17:54→23:44)
[2019-11-05] MEDS: ONDANSETRON 4 MG/2 ML VIAL IV PRN (18:47)
[2019-11-06] MEDS: PIPERACILLIN/TAZOBACTAM 3,375 MG in SODIUM CHLORIDE 0.9% 100 ML IV SCH ×2 (01:30→14:08)
[2019-11-06] MEDS: METOCLOPRAMIDE 10 MG/2 ML VIAL IV SCH ×3 (06:14→18:50)
[2019-11-06] MEDS: INSULIN REGULAR 100 UNIT/ML SUBCUT SCH ×4 (06:19→18:49)
[2019-11-06 07:17] LABS: Basophils # 0.1 10*3/uL (0.0-0.2); Basophils % 0.5 % (0.0-0.8); Eosinophils # 0.2 10*3/uL (0.0-0.87); Eosinophils % 1.3 % (0.00-10.9); Hemoglobin 9.3 GM/DL (14.0-18.0); Immature Granulocytes % 0.8 %; Immature Granulocytes Absolute 0.13 #; Lymphocytes # 1.5 10*3/uL (1.4-4.0); Lymphocytes % 9.8 % (21.2-54.2); Mean Corpuscular HGB Conc 33.2 GM/DL (32-36); Mean Corpuscular Volume 82.4 FL (87-102); Monocytes % 9.3 % (1.7-12.7); Neutrophils % 78.3 % (38.7-73.9); Platelet Count 553 T/CUMM (130-400); Red Cell Distribution Width 18.5 % (9.3-17.3); White Blood Count 15.5 T/CUMM (4-12)
[2019-11-06 07:30] LABS: Calcium 9.4 MG/DL (8.5-10.1); Osmolality,Calculated 275.7 MOS/KG (273-304)
[2019-11-06 07:38] LABS: Hypochromasia 1+
[2019-11-06 07:39] LABS: Microcytosis 1+; Platelet Estimate Increased; Target Cells Slight
[2019-11-06] MEDS: PANTOPRAZOLE 40 MG VIAL IV SCH ×2 (09:26→20:13)
[2019-11-06] MEDS: ENOXAPARIN 30 MG/0.3 ML SYRINGE SUBCUT SCH (09:28)
[2019-11-06] MEDS: LEVOFLOXACIN INJ 500 MG in PREMIX 1 EACH IV SCH (12:17)
[2019-11-06 14:55] LABS: Hematocrit 31.1 VOL% (42.0-52.0); Hemoglobin 9.9 GM/DL (14.0-18.0)
[2019-11-06] MEDS: FAT EMULSION 20% 250 ML IV SCH (16:13)
[2019-11-06] MEDS: TRACE ELEMENTS IV SCH (16:37)
[2019-11-06] MEDS: [UNRECOGNIZED DRUG - OTHER] IV SCH (16:37)
[2019-11-06] MEDS: AMINO ACIDS IV SCH (16:37)
[2019-11-06] MEDS: MULTIVITAMIN IV SCH (16:37)
[2019-11-07] MEDS: METOCLOPRAMIDE 10 MG/2 ML VIAL IV SCH ×4 (00:12→18:31)
[2019-11-07] MEDS: PIPERACILLIN/TAZOBACTAM 3,375 MG in SODIUM CHLORIDE 0.9% 100 ML IV SCH (00:12)
[2019-11-07] MEDS: INSULIN REGULAR 100 UNIT/ML SUBCUT SCH ×4 (00:12→18:31)
[2019-11-07 06:10] LABS: Basophils # 0.1 10*3/uL (0.0-0.2); Basophils % 0.3 % (0.0-0.8); Eosinophils # 0.3 10*3/uL (0.0-0.87); Hemoglobin 9.3 GM/DL (14.0-18.0); Immature Granulocytes % 0.6 %; Lymphocytes # 1.4 10*3/uL (1.4-4.0); Lymphocytes % 8.4 % (21.2-54.2); Mean Corpuscular HGB Conc 33.2 GM/DL (32-36); Mean Corpuscular Volume 82.8 FL (87-102); Mean Platelet Volume 10.7 FL (9.6-12.0); Monocytes % 7.7 % (1.7-12.7); Platelet Count 553 T/CUMM (130-400); Red Blood Count 3.38 MC/CUMM (3.8-5.5); Red Cell Distribution Width 17.8 % (9.3-17.3); White Blood Count 17.1 T/CUMM (4-12)
[2019-11-07 06:36] LABS: Calcium 9.5 MG/DL (8.5-10.1); Osmolality,Calculated 275.2 MOS/KG (273-304)
[2019-11-07] MEDS: PANTOPRAZOLE 40 MG VIAL IV SCH ×2 (09:12→20:59)
[2019-11-07] MEDS: MEROPENEM 500 MG in SODIUM CHLORIDE 0.9% 100 ML IV SCH (09:12)
[2019-11-07] MEDS ORDERED: VANCOMYCIN INJ 1,000 MG in SODIUM CHLORIDE 0.9% 250 ML IV ONE (09:30)
[2019-11-07] MEDS ORDERED: VANCOMYCIN INJ 500 MG in SODIUM CHLORIDE 0.9% 100 ML IV PRN (11:01)
[2019-11-07] MEDS ORDERED: MAGNESIUM SULF RIDER 4 GM in PREMIX 1 EACH IV PRN (13:22)
[2019-11-07] MEDS ORDERED: MAGNESIUM SULF RIDER 2 GM in PREMIX 1 EACH IV PRN (13:22)
[2019-11-07] MEDS: FAT EMULSION 20% 250 ML IV SCH (18:30)
[2019-11-07] MEDS: AMINO ACIDS IV SCH (18:31)
[2019-11-07] MEDS: TRACE ELEMENTS IV SCH (18:31)
[2019-11-07] MEDS: [UNRECOGNIZED DRUG - OTHER] IV SCH (18:31)
[2019-11-07] MEDS: MULTIVITAMIN IV SCH (18:31)
[2019-11-07 19:28] LABS: Basophils % 0.2 % (0.0-0.8); Eosinophils # 0.2 10*3/uL (0.0-0.87); Hematocrit 26.4 VOL% (42.0-52.0); Hemoglobin 8.7 GM/DL (14.0-18.0); Immature Granulocytes % 0.7 %; Immature Granulocytes Absolute 0.11 #; Lymphocytes # 1.1 10*3/uL (1.4-4.0); Lymphocytes % 6.3 % (21.2-54.2); Mean Corpuscular Volume 83.5 FL (87-102); Mean Platelet Volume 10.9 FL (9.6-12.0); Monocytes % 6.7 % (1.7-12.7); Neutrophils % 85.1 % (38.7-73.9); Platelet Count 581 T/CUMM (130-400); Red Blood Count 3.16 MC/CUMM (3.8-5.5); White Blood Count 16.9 T/CUMM (4-12)
[2019-11-08] MEDS: METOCLOPRAMIDE 10 MG/2 ML VIAL IV SCH ×4 (01:20→18:25)
[2019-11-08] MEDS: INSULIN REGULAR 100 UNIT/ML SUBCUT SCH ×4 (01:20→18:10)
[2019-11-08 05:47] LABS: Basophils % 0.3 % (0.0-0.8); Eosinophils # 0.2 10*3/uL (0.0-0.87); Eosinophils % 1.3 % (0.00-10.9); Hematocrit 24.3 VOL% (42.0-52.0); Hemoglobin 7.9 GM/DL (14.0-18.0); Immature Granulocytes % 0.8 %; Immature Granulocytes Absolute 0.12 #; Lymphocytes # 1.5 10*3/uL (1.4-4.0); Mean Corpuscular HGB Conc 32.5 GM/DL (32-36); Mean Corpuscular Volume 82.7 FL (87-102); Mean Platelet Volume 10.9 FL (9.6-12.0); Monocytes % 7.6 % (1.7-12.7); Platelet Count 491 T/CUMM (130-400); Red Blood Count 2.94 MC/CUMM (3.8-5.5); Red Cell Distribution Width 18.1 % (9.3-17.3); White Blood Count 15.4 T/CUMM (4-12)
[2019-11-08 06:32] LABS: Hypochromasia 2+; Microcytosis Slight; Platelet Estimate Adequate
[2019-11-08] MEDS: PANTOPRAZOLE 40 MG VIAL IV SCH ×2 (08:36→20:51)
[2019-11-08] MEDS: MEROPENEM 500 MG in SODIUM CHLORIDE 0.9% 100 ML IV SCH (08:37)
[2019-11-08 10:03] LABS: INR 1.1; PT Patient Result 11.3 SECS (9.8-11.9); Partial Thromboplastin Time 32.3 SECS (23.9-33.8)
[2019-11-08] MEDS ORDERED: TUBERCULIN SKIN TEST 0.1 ML SYRINGE INTRADERM ONE (14:59)
[2019-11-08] MEDS: FAT EMULSION 20% 250 ML IV SCH (15:28)
[2019-11-08] MEDS: [UNRECOGNIZED DRUG - OTHER] IV SCH (18:06)
[2019-11-08] MEDS: MULTIVITAMIN IV SCH (18:06)
[2019-11-08] MEDS: AMINO ACIDS IV SCH (18:06)
[2019-11-08] MEDS: TRACE ELEMENTS IV SCH (18:06)
[2019-11-09] MEDS: METOCLOPRAMIDE 10 MG/2 ML VIAL IV SCH ×4 (00:57→18:07)
[2019-11-09] MEDS: INSULIN REGULAR 100 UNIT/ML SUBCUT SCH ×4 (01:16→18:53)
[2019-11-09 06:27] LABS: Basophils # 0.1 10*3/uL (0.0-0.2); Basophils % 0.3 % (0.0-0.8); Eosinophils # 0.3 10*3/uL (0.0-0.87); Eosinophils % 2.3 % (0.00-10.9); Hematocrit 25.3 VOL% (42.0-52.0); Hemoglobin 8.1 GM/DL (14.0-18.0); Immature Granulocytes % 0.7 %; Lymphocytes # 1.7 10*3/uL (1.4-4.0); Lymphocytes % 11.6 % (21.2-54.2); Mean Corpuscular Volume 84.9 FL (87-102); Mean Platelet Volume 10.9 FL (9.6-12.0); Monocytes % 8.7 % (1.7-12.7); Neutrophils % 76.4 % (38.7-73.9); Platelet Count 510 T/CUMM (130-400); Red Blood Count 2.98 MC/CUMM (3.8-5.5); Red Cell Distribution Width 17.9 % (9.3-17.3); White Blood Count 15.1 T/CUMM (4-12)
[2019-11-09] MEDS: MEROPENEM 500 MG in SODIUM CHLORIDE 0.9% 100 ML IV SCH (12:00)
[2019-11-09] MEDS: PANTOPRAZOLE 40 MG VIAL IV SCH ×2 (12:00→20:20)
[2019-11-09] MEDS: FAT EMULSION 20% 250 ML IV SCH (14:59)
[2019-11-09] MEDS ORDERED: VANCOMYCIN INJ 500 MG in SODIUM CHLORIDE 0.9% 100 ML IV ONE (17:00)
[2019-11-09] MEDS: AMINO ACIDS IV SCH (18:20)
[2019-11-09] MEDS: MULTIVITAMIN IV SCH (18:20)
[2019-11-09] MEDS: TRACE ELEMENTS IV SCH (18:20)
[2019-11-09] MEDS: [UNRECOGNIZED DRUG - OTHER] IV SCH (18:20)
[2019-11-10] MEDS: METOCLOPRAMIDE 10 MG/2 ML VIAL IV SCH ×4 (00:35→18:06)
[2019-11-10] MEDS: INSULIN REGULAR 100 UNIT/ML SUBCUT SCH ×4 (02:02→18:08)
[2019-11-10 06:34] LABS: Basophils # 0.1 10*3/uL (0.0-0.2); Basophils % 0.6 % (0.0-0.8); Eosinophils # 0.2 10*3/uL (0.0-0.87); Eosinophils % 1.5 % (0.00-10.9); Hematocrit 23.8 VOL% (42.0-52.0); Hemoglobin 7.6 GM/DL (14.0-18.0); Immature Granulocytes % 0.6 %; Immature Granulocytes Absolute 0.08 #; Lymphocytes # 1.9 10*3/uL (1.4-4.0); Lymphocytes % 13.3 % (21.2-54.2); Mean Corpuscular HGB Conc 31.9 GM/DL (32-36); Mean Corpuscular Volume 87.5 FL (87-102); Mean Platelet Volume 10.9 FL (9.6-12.0); Monocytes % 9.1 % (1.7-12.7); Neutrophils % 74.9 % (38.7-73.9); Platelet Count 468 T/CUMM (130-400); Red Blood Count 2.72 MC/CUMM (3.8-5.5); Red Cell Distribution Width 18.5 % (9.3-17.3); White Blood Count 13.9 T/CUMM (4-12)
[2019-11-10] MEDS: PANTOPRAZOLE 40 MG VIAL IV SCH ×2 (08:51→20:55)
[2019-11-10] MEDS: MEROPENEM 500 MG in SODIUM CHLORIDE 0.9% 100 ML IV SCH (08:57)
[2019-11-11] MEDS: METOCLOPRAMIDE 10 MG/2 ML VIAL IV SCH ×4 (00:28→17:20)
[2019-11-11 05:45] LABS: Basophils # 0.1 10*3/uL (0.0-0.2); Basophils % 0.7 % (0.0-0.8); Eosinophils # 0.4 10*3/uL (0.0-0.87); Eosinophils % 2.7 % (0.00-10.9); Hematocrit 24.3 VOL% (42.0-52.0); Hemoglobin 7.9 GM/DL (14.0-18.0); Immature Granulocytes % 0.5 %; Immature Granulocytes Absolute 0.07 #; Lymphocytes # 1.9 10*3/uL (1.4-4.0); Mean Corpuscular HGB Conc 32.5 GM/DL (32-36); Mean Corpuscular Volume 83.5 FL (87-102); Mean Platelet Volume 10.4 FL (9.6-12.0); Monocytes % 8.9 % (1.7-12.7); Neutrophils % 72.2 % (38.7-73.9); Platelet Count 465 T/CUMM (130-400); Red Blood Count 2.91 MC/CUMM (3.8-5.5); Red Cell Distribution Width 17.9 % (9.3-17.3); White Blood Count 12.9 T/CUMM (4-12)
[2019-11-11 06:08] LABS: Anisocytosis 2+; Macrocytosis 1+; Platelet Estimate Normal; Target Cells Few
[2019-11-11 06:09] LABS: Polychromasia Slight
[2019-11-11] MEDS: INSULIN REGULAR 100 UNIT/ML SUBCUT SCH ×4 (07:01→18:29)
[2019-11-11] MEDS: PANTOPRAZOLE 40 MG VIAL IV SCH ×2 (09:05→20:49)
[2019-11-11] MEDS: MEROPENEM 500 MG in SODIUM CHLORIDE 0.9% 100 ML IV SCH (10:34)
[2019-11-12] MEDS: INSULIN REGULAR 100 UNIT/ML SUBCUT SCH ×3 (00:32→12:30)
[2019-11-12] MEDS: METOCLOPRAMIDE 10 MG/2 ML VIAL IV SCH ×3 (00:56→12:37)
[2019-11-12 06:09] LABS: Basophils # 0.1 10*3/uL (0.0-0.2); Basophils % 0.7 % (0.0-0.8); Eosinophils # 0.6 10*3/uL (0.0-0.87); Hematocrit 24.9 VOL% (42.0-52.0); Hemoglobin 7.9 GM/DL (14.0-18.0); Immature Granulocytes % 0.4 %; Immature Granulocytes Absolute 0.06 #; Lymphocytes # 2.3 10*3/uL (1.4-4.0); Lymphocytes % 16.4 % (21.2-54.2); Mean Corpuscular HGB Conc 31.7 GM/DL (32-36); Mean Corpuscular Volume 83.8 FL (87-102); Mean Platelet Volume 10.4 FL (9.6-12.0); Monocytes % 7.9 % (1.7-12.7); Neutrophils % 70.6 % (38.7-73.9); Platelet Count 457 T/CUMM (130-400); Red Blood Count 2.97 MC/CUMM (3.8-5.5); Red Cell Distribution Width 17.5 % (9.3-17.3); White Blood Count 14.1 T/CUMM (4-12)
[2019-11-12 06:55] LABS: Platelet Estimate Adequate
[2019-11-12 06:56] LABS: Hypochromasia 1+
[2019-11-12 08:13] VITALS: BP 130/83
[2019-11-12] MEDS: PANTOPRAZOLE 40 MG VIAL IV SCH (12:31)
[2019-11-12] MEDS: MEROPENEM 500 MG in SODIUM CHLORIDE 0.9% 100 ML IV SCH (13:22)
[2019-11-12] MEDS ORDERED: VANCOMYCIN INJ 500 MG in SODIUM CHLORIDE 0.9% 100 ML IV ONE (17:00)
== END 2019-11-12 16:00 | DRG 329 ==
LOC: EDBD → EDUNIT# → N.ED 12:02 → SUATTDRO 15:51 → N.ICU 15:51 → N.TELEN 10-28 16:05
PROVIDERS: ADMIT Student in an Organized Health Care Education/Training Program; ATTEND Student in an Organized Health Care Education/Training Program

== ENCOUNTER 2020-06-22 15:02 | Inpatient (IN) ==
[2020-06-22] MEDS ORDERED: SODIUM CHLORIDE 0.9% 500 ML IV STA ×2 (15:48→16:48)
[2020-06-22 16:09] LABS: Basophils # 0.1 10*3/uL (0.0-0.2); Basophils % 0.5 % (0.0-0.8); Eosinophils % 0.1 % (0.00-10.9); Hematocrit 35.5 VOL% (42.0-52.0); Hemoglobin 11.1 GM/DL (14.0-18.0); Immature Granulocytes % 0.9 %; Immature Granulocytes Absolute 0.16 #; Lymphocytes # 1.4 10*3/uL (1.4-4.0); Mean Corpuscular HGB Conc 31.3 GM/DL (32-36); Mean Corpuscular Volume 79.2 FL (87-102); Mean Platelet Volume 9.4 FL (9.6-12.0); Monocytes % 7.4 % (1.7-12.7); Neutrophils % 83.1 % (38.7-73.9); Platelet Count 561 T/CUMM (130-400); Red Blood Count 4.48 MC/CUMM (3.8-5.5); Red Cell Distribution Width 19.3 % (9.3-17.3); White Blood Count 17.4 T/CUMM (4-12)
[2020-06-22 16:33] LABS: Alanine Aminotransferase 10 U/L (16-61); Albumin 2.1 G/DL (3.4-5.0); Alkaline Phosphatase 107 U/L (45-117); Aspartate Amino Transferase 18 U/L (0-37); Bilirubin,Total < 0.39 MG/DL (0.2-1.0); Blood Urea Nitrogen 51 MG/DL (7-18); Calcium 10.7 MG/DL (8.5-10.1); Carbon Dioxide 23 MMOL/L (21-32); Estimated Glom Filtration Rate 12 ML/MIN; Glucose 89 MG/DL (74-106); Osmolality,Calculated 285.8 MOS/KG (273-304); Sodium 137 MMOL/L (136-145); Total Protein 8.1 G/DL (6.4-8.3)
[2020-06-22] MEDS ORDERED: VANCOMYCIN INJ 1,000 MG in SODIUM CHLORIDE 0.9% 250 ML IV STA ×2 (16:48→16:55)
[2020-06-22] MEDS ORDERED: PIPERACILLIN/TAZOBACTAM 3,375 MG in SODIUM CHLORIDE 0.9% 100 ML IV STA (16:48)
[2020-06-22] MEDS ORDERED: ACETAMINOPHEN 500 MG TABLET PO STA (16:49)
[2020-06-22 16:57] LABS: Anisocytosis Slight; Lymphocytes 11 % (20-55); Microcytosis Slight; Platelet Estimate Increased; Segmented Neutrophils 87 % (50-85); Total Cells Counted 100
[2020-06-22 16:59] LABS: Atypical Lymphocytes Few
[2020-06-22] MEDS ORDERED: DEXTROSE 50% 25 GM/50 ML VIAL IV PRN (18:04)
[2020-06-22] MEDS ORDERED: GLUCAGON 1 MG VIAL IM PRN (18:04)
[2020-06-22] MEDS ORDERED: ALBUTEROL 2.5 MG/3 ML NEB RESP TX PRN (18:04)
[2020-06-22] MEDS ORDERED: ACETAMINOPHEN 325 MG TABLET PO PRN (18:04)
[2020-06-22] MEDS ORDERED: ONDANSETRON 4 MG/2 ML VIAL IV PRN (18:04)
[2020-06-22] MEDS ORDERED: DOCUSATE SODIUM 100 MG CAPSULE PO PRN (18:04)
[2020-06-22] MEDS ORDERED: ONDANSETRON 4 MG TABLET PO PRN (18:08)
[2020-06-22] MEDS ORDERED: SODIUM CHLORIDE 0.9% 500 ML IV ONE (18:12)
[2020-06-22] MEDS ORDERED: NOREPINEPHRINE 4 MG in SODIUM CHLORIDE 0.9% 246 ML IV PRN (18:16)
[2020-06-22] MEDS ORDERED: NOREPINEPHRINE 4 MG/4 ML VIAL IV ONE ×3 (18:18→19:55)
[2020-06-22] MEDS ORDERED: VANCOMYCIN INJ 1,000 MG in SODIUM CHLORIDE 0.9% 250 ML IV PRN (18:30)
[2020-06-22] MEDS: SODIUM CHLORIDE 0.9% 1,000 ML IV SCH (19:35)
[2020-06-22] MEDS ORDERED: SODIUM CHLORIDE 0.9% 250 ML IV ONE (19:40)
[2020-06-22] MEDS ORDERED: DOPamine 800 MG/250 ML PREMIX IV PRN (19:40)
[2020-06-22] MEDS ORDERED: DOPamine 800 MG/250 ML PREMIX IV ONE (19:50)
[2020-06-22] MEDS: NOREPINEPHRINE 8 MG in SODIUM CHLORIDE 0.9% 242 ML IV PRN (20:00)
[2020-06-22] MEDS ORDERED: POTASSIUM CHLORIDE 20 MEQ TABLET PO ONE (20:38)
[2020-06-22] MEDS: METOCLOPRAMIDE 5 MG TABLET PO SCH (22:00)
[2020-06-22] MEDS: PANTOPRAZOLE 40 MG TABLET PO SCH (22:00)
[2020-06-22] MEDS: cilostazoL 100 MG TABLET PO SCH (22:00)
[2020-06-22] MEDS: HEPARIN 5,000 UNIT/1 ML VIAL SUBCUT SCH (22:00)
[2020-06-23 03:57] LABS: Basophils # 0.1 10*3/uL (0.0-0.2); Basophils % 0.7 % (0.0-0.8); Eosinophils % 0.2 % (0.00-10.9); Hematocrit 33.2 VOL% (42.0-52.0); Hemoglobin 10.5 GM/DL (14.0-18.0); Immature Granulocytes % 0.7 %; Lymphocytes % 6.7 % (21.2-54.2); Mean Corpuscular HGB Conc 31.6 GM/DL (32-36); Mean Corpuscular Volume 80.6 FL (87-102); Mean Platelet Volume 9.5 FL (9.6-12.0); Monocytes % 9.2 % (1.7-12.7); Neutrophils % 82.5 % (38.7-73.9); Platelet Count 552 T/CUMM (130-400); Red Blood Count 4.12 MC/CUMM (3.8-5.5); Red Cell Distribution Width 18.8 % (9.3-17.3); White Blood Count 15.2 T/CUMM (4-12)
[2020-06-23 04:26] LABS: Albumin 1.8 G/DL (3.4-5.0); Bilirubin,Total 0.6 MG/DL (0.2-1.0); Calcium 10.2 MG/DL (8.5-10.1); Osmolality,Calculated 286.8 MOS/KG (273-304); Potassium 3.6 MMOL/L (3.5-5.1); Total Protein 7.1 G/DL (6.4-8.3)
[2020-06-23] MEDS: PIPERACILLIN/TAZOBACTAM 3,375 MG in SODIUM CHLORIDE 0.9% 100 ML IV SCH ×2 (05:00→17:43)
[2020-06-23] MEDS: HEPARIN 5,000 UNIT/1 ML VIAL SUBCUT SCH ×3 (06:31→21:46)
[2020-06-23] MEDS ORDERED: ALBUMIN 25% 25 GM in PREMIX 1 EACH IV ONE (07:12)
[2020-06-23] MEDS: SODIUM CHLORIDE 0.9% 1,000 ML IV SCH ×2 (08:29→17:43)
[2020-06-23] MEDS ORDERED: PANTOPRAZOLE 40 MG TABLET PO SCH (09:00)
[2020-06-23] MEDS: METOCLOPRAMIDE 5 MG TABLET PO SCH ×4 (09:11→21:30)
[2020-06-23] MEDS: PANTOPRAZOLE 40 MG TABLET PO SCH ×2 (09:11→17:30)
[2020-06-23] MEDS: cilostazoL 100 MG TABLET PO SCH ×2 (09:11→21:30)
[2020-06-23] MEDS: SEVELAMER CARBONATE 800 MG TABLET PO SCH ×3 (09:12→17:30)
[2020-06-23] MEDS: NOREPINEPHRINE 8 MG in SODIUM CHLORIDE 0.9% 242 ML IV PRN (19:10)
[2020-06-23] MEDS: ASCORBIC ACID 500 MG TABLET PO SCH (21:30)
[2020-06-23] MEDS: ROSUVASTATIN 20 MG TABLET PO SCH (21:30)
[2020-06-24] MEDS: SODIUM CHLORIDE 0.9% 1,000 ML IV SCH ×2 (03:49→12:11)
[2020-06-24 04:19] LABS: Basophils # 0.1 10*3/uL (0.0-0.2); Basophils % 0.4 % (0.0-0.8); Eosinophils # 0.3 10*3/uL (0.0-0.87); Eosinophils % 1.6 % (0.00-10.9); Hemoglobin 9.9 GM/DL (14.0-18.0); Immature Granulocytes % 0.5 %; Immature Granulocytes Absolute 0.07 #; Lymphocytes # 1.1 10*3/uL (1.4-4.0); Lymphocytes % 7.3 % (21.2-54.2); Mean Corpuscular Volume 80.7 FL (87-102); Mean Platelet Volume 9.7 FL (9.6-12.0); Monocytes % 8.5 % (1.7-12.7); Neutrophils % 81.7 % (38.7-73.9); Platelet Count 588 T/CUMM (130-400); Red Blood Count 4.09 MC/CUMM (3.8-5.5); Red Cell Distribution Width 18.4 % (9.3-17.3); White Blood Count 15.2 T/CUMM (4-12)
[2020-06-24 04:39] LABS: Calcium 10.7 MG/DL (8.5-10.1); Osmolality,Calculated 279.7 MOS/KG (273-304)
[2020-06-24] MEDS: PIPERACILLIN/TAZOBACTAM 3,375 MG in SODIUM CHLORIDE 0.9% 100 ML IV SCH ×2 (05:28→19:37)
[2020-06-24] MEDS: HEPARIN 5,000 UNIT/1 ML VIAL SUBCUT SCH ×3 (05:28→21:05)
[2020-06-24] MEDS: PANTOPRAZOLE 40 MG TABLET PO SCH ×2 (09:38→17:37)
[2020-06-24] MEDS: SEVELAMER CARBONATE 800 MG TABLET PO SCH ×3 (09:38→17:38)
[2020-06-24] MEDS: cilostazoL 100 MG TABLET PO SCH ×2 (09:38→21:04)
[2020-06-24] MEDS: METOCLOPRAMIDE 5 MG TABLET PO SCH ×4 (09:38→21:04)
[2020-06-24] MEDS: ASPIRIN EC 81 MG TABLET PO SCH (09:38)
[2020-06-24] MEDS: ASCORBIC ACID 500 MG TABLET PO SCH ×2 (09:38→21:04)
[2020-06-24 13:13] LABS: Hepatitis B Surface Ab Result Non-Reactive (NonReactive); Hepatitis B Surface Ag Quant 0.22 Index; Hepatitis B Surface Ag Result Non-Reactive (NonReactive)
[2020-06-24] MEDS: NOREPINEPHRINE 8 MG in SODIUM CHLORIDE 0.9% 242 ML IV PRN (15:08)
[2020-06-24] MEDS ORDERED: VANCOMYCIN INJ 1,000 MG in SODIUM CHLORIDE 0.9% 250 ML IV ONE (17:00)
[2020-06-24] MEDS: ROSUVASTATIN 20 MG TABLET PO SCH (21:04)
[2020-06-25] MEDS: SODIUM CHLORIDE 0.9% 1,000 ML IV SCH ×3 (00:33→21:02)
[2020-06-25 03:19] LABS: Basophils # 0.1 10*3/uL (0.0-0.2); Basophils % 0.5 % (0.0-0.8); Eosinophils # 0.2 10*3/uL (0.0-0.87); Hemoglobin 10.1 GM/DL (14.0-18.0); Immature Granulocytes % 0.6 %; Immature Granulocytes Absolute 0.11 #; Lymphocytes # 1.1 10*3/uL (1.4-4.0); Mean Corpuscular HGB Conc 29.7 GM/DL (32-36); Monocytes % 8.6 % (1.7-12.7); Neutrophils % 83.3 % (38.7-73.9); Platelet Count 535 T/CUMM (130-400); Red Cell Distribution Width 18.6 % (9.3-17.3)
[2020-06-25 04:06] LABS: Hypochromasia 1+; Lymphocytes 2 % (20-55); Platelet Estimate Adequate; Segmented Neutrophils 89 % (50-85); Total Cells Counted 100
[2020-06-25 04:13] LABS: Calcium 10.5 MG/DL (8.5-10.1)
[2020-06-25] MEDS: NOREPINEPHRINE 8 MG in SODIUM CHLORIDE 0.9% 242 ML IV PRN (04:50)
[2020-06-25] MEDS: PIPERACILLIN/TAZOBACTAM 3,375 MG in SODIUM CHLORIDE 0.9% 100 ML IV SCH ×2 (05:05→16:45)
[2020-06-25] MEDS: HEPARIN 5,000 UNIT/1 ML VIAL SUBCUT SCH ×3 (05:20→21:02)
[2020-06-25] MEDS: SEVELAMER CARBONATE 800 MG TABLET PO SCH ×3 (09:32→16:45)
[2020-06-25] MEDS: ASCORBIC ACID 500 MG TABLET PO SCH ×2 (09:32→20:42)
[2020-06-25] MEDS: cilostazoL 100 MG TABLET PO SCH ×2 (09:32→20:42)
[2020-06-25] MEDS: METOCLOPRAMIDE 5 MG TABLET PO SCH ×4 (09:32→20:42)
[2020-06-25] MEDS: PANTOPRAZOLE 40 MG TABLET PO SCH ×2 (09:32→16:46)
[2020-06-25] MEDS: ASPIRIN EC 81 MG TABLET PO SCH (09:32)
[2020-06-25] MEDS: ROSUVASTATIN 20 MG TABLET PO SCH (20:42)
[2020-06-26] MEDS: SODIUM CHLORIDE 0.9% 1,000 ML IV SCH (02:08)
[2020-06-26] MEDS: PIPERACILLIN/TAZOBACTAM 3,375 MG in SODIUM CHLORIDE 0.9% 100 ML IV SCH ×2 (05:37→21:07)
[2020-06-26] MEDS: HEPARIN 5,000 UNIT/1 ML VIAL SUBCUT SCH ×3 (05:37→23:33)
[2020-06-26 06:00] LABS: Basophils # 0.1 10*3/uL (0.0-0.2); Basophils % 0.6 % (0.0-0.8); Eosinophils # 0.3 10*3/uL (0.0-0.87); Eosinophils % 1.8 % (0.00-10.9); Hematocrit 33.6 VOL% (42.0-52.0); Hemoglobin 10.1 GM/DL (14.0-18.0); Immature Granulocytes % 0.6 %; Immature Granulocytes Absolute 0.08 #; Lymphocytes % 7.2 % (21.2-54.2); Mean Corpuscular HGB Conc 30.1 GM/DL (32-36); Mean Corpuscular Volume 80.4 FL (87-102); Mean Platelet Volume 10.1 FL (9.6-12.0); Monocytes % 7.7 % (1.7-12.7); Neutrophils % 82.1 % (38.7-73.9); Platelet Count 532 T/CUMM (130-400); Red Blood Count 4.18 MC/CUMM (3.8-5.5); Red Cell Distribution Width 18.5 % (9.3-17.3); White Blood Count 14.1 T/CUMM (4-12)
[2020-06-26 06:16] LABS: Calcium 11.7 MG/DL (8.5-10.1); Osmolality,Calculated 286.8 MOS/KG (273-304); Potassium 4.1 MMOL/L (3.5-5.1)
[2020-06-26] MEDS: PANTOPRAZOLE 40 MG TABLET PO SCH ×2 (07:45→16:05)
[2020-06-26] MEDS: SEVELAMER CARBONATE 800 MG TABLET PO SCH ×3 (07:45→16:24)
[2020-06-26] MEDS: METOCLOPRAMIDE 10 MG TABLET PO SCH ×4 (07:45→21:06)
[2020-06-26] MEDS ORDERED: LIDOCAINE 1% 20 ML VIAL MISC INJ ONE (12:40)
[2020-06-26] MEDS: cilostazoL 100 MG TABLET PO SCH ×2 (13:50→21:06)
[2020-06-26] MEDS: ASCORBIC ACID 500 MG TABLET PO SCH ×2 (13:50→21:06)
[2020-06-26] MEDS: ASPIRIN EC 81 MG TABLET PO SCH (13:51)
[2020-06-26] MEDS ORDERED: VANCOMYCIN INJ 1,000 MG in SODIUM CHLORIDE 0.9% 250 ML IV ONE (17:00)
[2020-06-26] MEDS: ROSUVASTATIN 20 MG TABLET PO SCH (21:06)
[2020-06-27 06:11] LABS: Basophils # 0.1 10*3/uL (0.0-0.2); Basophils % 0.5 % (0.0-0.8); Eosinophils # 0.3 10*3/uL (0.0-0.87); Hematocrit 31.2 VOL% (42.0-52.0); Hemoglobin 9.7 GM/DL (14.0-18.0); Immature Granulocytes % 0.5 %; Immature Granulocytes Absolute 0.07 #; Lymphocytes # 1.1 10*3/uL (1.4-4.0); Lymphocytes % 8.8 % (21.2-54.2); Mean Corpuscular HGB Conc 31.1 GM/DL (32-36); Mean Platelet Volume 10.5 FL (9.6-12.0); Monocytes % 8.6 % (1.7-12.7); Neutrophils % 79.6 % (38.7-73.9); Platelet Count 598 T/CUMM (130-400); Red Blood Count 3.95 MC/CUMM (3.8-5.5); Red Cell Distribution Width 18.8 % (9.3-17.3); White Blood Count 12.8 T/CUMM (4-12)
[2020-06-27] MEDS: HEPARIN 5,000 UNIT/1 ML VIAL SUBCUT SCH ×3 (06:51→23:26)
[2020-06-27 07:44] LABS: Calcium 11.1 MG/DL (8.5-10.1); Osmolality,Calculated 276.8 MOS/KG (273-304)
[2020-06-27] MEDS: ASPIRIN EC 81 MG TABLET PO SCH (08:14)
[2020-06-27] MEDS: PANTOPRAZOLE 40 MG TABLET PO SCH ×2 (08:14→16:18)
[2020-06-27] MEDS: cilostazoL 100 MG TABLET PO SCH ×2 (08:14→21:50)
[2020-06-27] MEDS: METOCLOPRAMIDE 10 MG TABLET PO SCH ×4 (08:14→21:50)
[2020-06-27] MEDS: PIPERACILLIN/TAZOBACTAM 3,375 MG in SODIUM CHLORIDE 0.9% 100 ML IV SCH ×2 (08:14→21:49)
[2020-06-27] MEDS: SEVELAMER CARBONATE 800 MG TABLET PO SCH ×3 (08:14→16:18)
[2020-06-27] MEDS: ASCORBIC ACID 500 MG TABLET PO SCH ×2 (08:15→21:50)
[2020-06-27] MEDS: SODIUM CHLORIDE 0.9% 1,000 ML IV SCH ×3 (12:18→21:49)
[2020-06-27] MEDS: ROSUVASTATIN 20 MG TABLET PO SCH (21:50)
[2020-06-28] MEDS: HEPARIN 5,000 UNIT/1 ML VIAL SUBCUT SCH ×3 (05:56→22:13)
[2020-06-28 06:54] LABS: Calcium 11.3 MG/DL (8.5-10.1); Osmolality,Calculated 283.4 MOS/KG (273-304); Potassium 4.5 MMOL/L (3.5-5.1)
[2020-06-28 06:57] LABS: Basophils # 0.1 10*3/uL (0.0-0.2); Basophils % 0.5 % (0.0-0.8); Eosinophils # 0.3 10*3/uL (0.0-0.87); Eosinophils % 2.2 % (0.00-10.9); Hematocrit 33.3 VOL% (42.0-52.0); Hemoglobin 9.9 GM/DL (14.0-18.0); Immature Granulocytes % 0.5 %; Immature Granulocytes Absolute 0.06 #; Lymphocytes # 1.6 10*3/uL (1.4-4.0); Lymphocytes % 12.7 % (21.2-54.2); Mean Corpuscular HGB Conc 29.7 GM/DL (32-36); Mean Platelet Volume 10.3 FL (9.6-12.0); Monocytes % 8.4 % (1.7-12.7); Neutrophils % 75.7 % (38.7-73.9); Platelet Count 684 T/CUMM (130-400); Red Blood Count 4.06 MC/CUMM (3.8-5.5); Red Cell Distribution Width 19.6 % (9.3-17.3); White Blood Count 12.5 T/CUMM (4-12)
[2020-06-28] MEDS: PIPERACILLIN/TAZOBACTAM 3,375 MG in SODIUM CHLORIDE 0.9% 100 ML IV SCH ×2 (10:26→21:36)
[2020-06-28] MEDS: SEVELAMER CARBONATE 800 MG TABLET PO SCH ×3 (10:26→17:20)
[2020-06-28] MEDS: PANTOPRAZOLE 40 MG TABLET PO SCH ×2 (10:26→17:20)
[2020-06-28] MEDS: cilostazoL 100 MG TABLET PO SCH ×2 (10:26→21:36)
[2020-06-28] MEDS: METOCLOPRAMIDE 10 MG TABLET PO SCH ×4 (10:26→21:36)
[2020-06-28] MEDS: ASPIRIN EC 81 MG TABLET PO SCH (10:26)
[2020-06-28] MEDS: ASCORBIC ACID 500 MG TABLET PO SCH ×2 (10:26→21:33)
[2020-06-28] MEDS: SODIUM CHLORIDE 0.9% 1,000 ML IV SCH (15:27)
[2020-06-28] MEDS: ROSUVASTATIN 20 MG TABLET PO SCH (21:33)
[2020-06-29] MEDS: HEPARIN 5,000 UNIT/1 ML VIAL SUBCUT SCH ×3 (04:59→22:29)
[2020-06-29 06:15] LABS: Basophils # 0.1 10*3/uL (0.0-0.2); Basophils % 0.5 % (0.0-0.8); Eosinophils # 0.3 10*3/uL (0.0-0.87); Eosinophils % 1.9 % (0.00-10.9); Hematocrit 31.6 VOL% (42.0-52.0); Hemoglobin 9.6 GM/DL (14.0-18.0); Immature Granulocytes % 0.6 %; Immature Granulocytes Absolute 0.08 #; Lymphocytes # 1.7 10*3/uL (1.4-4.0); Mean Corpuscular HGB Conc 30.4 GM/DL (32-36); Mean Corpuscular Volume 84.7 FL (87-102); Mean Platelet Volume 10.2 FL (9.6-12.0); Monocytes % 9.9 % (1.7-12.7); Neutrophils % 75.1 % (38.7-73.9); Platelet Count 743 T/CUMM (130-400); Red Blood Count 3.73 MC/CUMM (3.8-5.5); Red Cell Distribution Width 20.8 % (9.3-17.3); White Blood Count 14.5 T/CUMM (4-12)
[2020-06-29 06:35] LABS: Calcium 12.2 MG/DL (8.5-10.1); Osmolality,Calculated 291.4 MOS/KG (273-304); Potassium 4.8 MMOL/L (3.5-5.1)
[2020-06-29] MEDS: PIPERACILLIN/TAZOBACTAM 3,375 MG in SODIUM CHLORIDE 0.9% 100 ML IV SCH ×2 (10:13→22:22)
[2020-06-29] MEDS: SEVELAMER CARBONATE 800 MG TABLET PO SCH ×3 (10:42→17:32)
[2020-06-29] MEDS: PANTOPRAZOLE 40 MG TABLET PO SCH ×2 (10:42→17:30)
[2020-06-29] MEDS: METOCLOPRAMIDE 10 MG TABLET PO SCH ×4 (10:42→22:21)
[2020-06-29] MEDS ORDERED: LIDOCAINE 1%/EPI INJ 20 ML VIAL ONE (10:58)
[2020-06-29] MEDS ORDERED: BUPIVACAINE MPF 0.25% 30 ML VIAL ONE (10:58)
[2020-06-29] MEDS ORDERED: propofoL 200 MG/20 ML VIAL IV ONE (11:31)
[2020-06-29] MEDS ORDERED: LIDOCAINE 2% 5 ML VIAL ONE (11:31)
[2020-06-29] MEDS ORDERED: fentaNYL 100 MCG/2 ML VIAL ONE (11:32)
[2020-06-29] MEDS ORDERED: PHENYLEPHRINE 1 MG/10 ML SYRINGE IV ONE (11:45)
[2020-06-29] MEDS: ASPIRIN EC 81 MG TABLET PO SCH (15:01)
[2020-06-29] MEDS: cilostazoL 100 MG TABLET PO SCH ×2 (15:01→22:22)
[2020-06-29] MEDS: SODIUM CHLORIDE 0.9% 1,000 ML IV SCH (15:01)
[2020-06-29] MEDS: ASCORBIC ACID 500 MG TABLET PO SCH ×2 (15:01→22:21)
[2020-06-29] MEDS: VANCOMYCIN 50 MG/ML 60 ML/BOTTLE PO SCH ×2 (15:02→18:45)
[2020-06-29] MEDS ORDERED: VANCOMYCIN INJ 1,000 MG in SODIUM CHLORIDE 0.9% 250 ML IV ONE (17:00)
[2020-06-29] MEDS: ROSUVASTATIN 20 MG TABLET PO SCH (22:21)
[2020-06-30] MEDS: VANCOMYCIN 50 MG/ML 60 ML/BOTTLE PO SCH ×3 (02:36→13:11)
[2020-06-30] MEDS: HEPARIN 5,000 UNIT/1 ML VIAL SUBCUT SCH (05:52)
[2020-06-30 05:55] LABS: Calcium 11.5 MG/DL (8.5-10.1); Osmolality,Calculated 284.1 MOS/KG (273-304); Potassium 4.4 MMOL/L (3.5-5.1)
[2020-06-30 06:13] LABS: Basophils # 0.1 10*3/uL (0.0-0.2); Basophils % 0.4 % (0.0-0.8); Eosinophils # 0.2 10*3/uL (0.0-0.87); Eosinophils % 1.2 % (0.00-10.9); Hemoglobin 9.2 GM/DL (14.0-18.0); Immature Granulocytes % 0.6 %; Lymphocytes # 2.2 10*3/uL (1.4-4.0); Lymphocytes % 12.9 % (21.2-54.2); Mean Corpuscular HGB Conc 29.7 GM/DL (32-36); Mean Corpuscular Volume 85.9 FL (87-102); Mean Platelet Volume 10.2 FL (9.6-12.0); Neutrophils % 72.9 % (38.7-73.9); Platelet Count 755 T/CUMM (130-400); Red Blood Count 3.61 MC/CUMM (3.8-5.5); Red Cell Distribution Width 20.5 % (9.3-17.3); White Blood Count 16.9 T/CUMM (4-12)
[2020-06-30 06:18] LABS: Hypochromasia 1+; Microcytosis 1+; Platelet Estimate Increased
[2020-06-30] MEDS: ASCORBIC ACID 500 MG TABLET PO SCH (10:09)
[2020-06-30] MEDS: SEVELAMER CARBONATE 800 MG TABLET PO SCH ×2 (10:10→13:15)
[2020-06-30] MEDS: cilostazoL 100 MG TABLET PO SCH (10:10)
[2020-06-30] MEDS: METOCLOPRAMIDE 10 MG TABLET PO SCH ×2 (10:10→13:15)
[2020-06-30] MEDS: PANTOPRAZOLE 40 MG TABLET PO SCH (10:10)
[2020-06-30] MEDS: ASPIRIN EC 81 MG TABLET PO SCH (10:10)
[2020-06-30] MEDS: SODIUM CHLORIDE 0.9% 1,000 ML IV SCH (10:11)
[2020-06-30] MEDS: PIPERACILLIN/TAZOBACTAM 3,375 MG in SODIUM CHLORIDE 0.9% 100 ML IV SCH (10:17)
[2020-06-30 13:34] VITALS: BP 102/84
== END 2020-06-30 14:56 | disposition home health service (06) | DRG 314 ==
LOC: EDBD 15:02 → N.ED 15:02 → EDUNIT# 15:02 → N.EDINP 18:04 → SUATTDRO 18:04 → N.ICU 19:14 → N.TELES 06-25 22:10
PROVIDERS: ADMIT Internal Medicine; ATTEND Internal Medicine

== ENCOUNTER 2020-07-02 15:02 | Inpatient (IN) ==
[2020-07-02] MEDS ORDERED: SODIUM CHLORIDE 0.9% 1,000 ML IV STA (15:52)
[2020-07-02] MEDS ORDERED: NOREPINEPHRINE 4 MG/4 ML VIAL IV ONE (16:37)
[2020-07-02] MEDS: NOREPINEPHRINE 8 MG in SODIUM CHLORIDE 0.9% 242 ML IV PRN ×2 (16:40→16:45)
[2020-07-02 17:08] LABS: Alanine Aminotransferase 9 U/L (16-61); Albumin 1.7 G/DL (3.4-5.0); Alkaline Phosphatase 90 U/L (45-117); Aspartate Amino Transferase 14 U/L (0-37); Blood Urea Nitrogen 45 MG/DL (7-18); Calcium 12.8 MG/DL (8.5-10.1); Carbon Dioxide 15 MMOL/L (21-32); Estimated Glom Filtration Rate 8 ML/MIN; Glucose 95 MG/DL (74-106); Osmolality,Calculated 299.7 MOS/KG (273-304); Potassium 4.2 MMOL/L (3.5-5.1); Sodium 145 MMOL/L (136-145); Total Protein 7.6 G/DL (6.4-8.3)
[2020-07-02 17:09] LABS: Basophils % 0.2 % (0.0-0.8); Eosinophils # 0.1 10*3/uL (0.0-0.87); Eosinophils % 0.7 % (0.00-10.9); Hematocrit 35.1 VOL% (42.0-52.0); Hemoglobin 10.3 GM/DL (14.0-18.0); Immature Granulocytes % 0.5 %; Lymphocytes # 2.8 10*3/uL (1.4-4.0); Lymphocytes % 15.3 % (21.2-54.2); Mean Corpuscular HGB Conc 29.3 GM/DL (32-36); Mean Platelet Volume 10.2 FL (9.6-12.0); Monocytes % 9.4 % (1.7-12.7); NRBC # 0.03 10*3/uL; Neutrophils % 73.9 % (38.7-73.9); Platelet Count 753 T/CUMM (130-400); Red Blood Count 4.13 MC/CUMM (3.8-5.5); Red Cell Distribution Width 20.2 % (9.3-17.3); White Blood Count 18.3 T/CUMM (4-12)
[2020-07-02] MEDS ORDERED: ALBUTEROL 2.5 MG/3 ML NEB RESP TX PRN (17:25)
[2020-07-02] MEDS ORDERED: ONDANSETRON 4 MG/2 ML VIAL IV PRN (17:25)
[2020-07-02] MEDS ORDERED: LACTATED RINGERS 2,000 ML IV ONE (17:31)
[2020-07-02] MEDS ORDERED: VANCOMYCIN INJ 1,000 MG in SODIUM CHLORIDE 0.9% 250 ML IV STA (17:46)
[2020-07-02] MEDS: FAMOTIDINE 20 MG/2 ML VIAL IV SCH (17:52)
[2020-07-02] MEDS ORDERED: VANCOMYCIN 1,000 MG VIAL ONE (17:58)
[2020-07-02] MEDS: HYDROCORTISONE 100 MG VIAL IV SCH (18:17)
[2020-07-02] MEDS: ENOXAPARIN 30 MG/0.3 ML SYRINGE SUBCUT SCH (21:38)
[2020-07-03] MEDS: HYDROCORTISONE 100 MG VIAL IV SCH ×5 (00:41→23:53)
[2020-07-03] MEDS: NOREPINEPHRINE 8 MG in SODIUM CHLORIDE 0.9% 242 ML IV PRN ×2 (01:30→15:00)
[2020-07-03 05:03] LABS: Bilirubin,Total 0.4 MG/DL (0.2-1.0); Calcium 12.5 MG/DL (8.5-10.1); Osmolality,Calculated 300.7 MOS/KG (273-304); Potassium 4.7 MMOL/L (3.5-5.1); Thyroid Stimulating Hormone 3.16 uIU/ml (0.358-3.74); Total Protein 8.5 G/DL (6.4-8.3)
[2020-07-03 05:17] LABS: Basophils # 0.1 10*3/uL (0.0-0.2); Basophils % 0.2 % (0.0-0.8); Hematocrit 37.4 VOL% (42.0-52.0); Immature Granulocytes % 1.3 %; Immature Granulocytes Absolute 0.31 #; Lymphocytes # 1.2 10*3/uL (1.4-4.0); Lymphocytes % 4.9 % (21.2-54.2); Mean Corpuscular HGB Conc 28.9 GM/DL (32-36); Mean Corpuscular Volume 85.2 FL (87-102); Mean Platelet Volume 10.2 FL (9.6-12.0); Monocytes % 1.9 % (1.7-12.7); NRBC # 0.06 10*3/uL; Neutrophils % 91.7 % (38.7-73.9); Platelet Count 847 T/CUMM (130-400); Red Blood Count 4.39 MC/CUMM (3.8-5.5); White Blood Count 24.5 T/CUMM (4-12)
[2020-07-03 05:18] LABS: Hemoglobin 10.8 GM/DL (14.0-18.0)
[2020-07-03 05:25] LABS: Band Neutrophils 1 % (0-10); Lymphocytes 9 % (20-55); Platelet Estimate Increased; Segmented Neutrophils 90 % (50-85); Total Cells Counted 100
[2020-07-03 05:26] LABS: Hypochromasia Slight; Microcytosis Slight
[2020-07-03] MEDS: FAMOTIDINE 20 MG/2 ML VIAL IV SCH ×2 (06:07→18:11)
[2020-07-03] MEDS ORDERED: SODIUM BICARBONATE 50 MEQ/50 ML VIAL IV ONE (08:49)
[2020-07-03] MEDS: MIDODRINE 5 MG TABLET PO SCH ×2 (13:51→20:36)
[2020-07-03] MEDS: VANCOMYCIN 50 MG/ML 60 ML/BOTTLE PO SCH ×3 (13:51→20:37)
[2020-07-03] MEDS ORDERED: VANCOMYCIN INJ 500 MG in SODIUM CHLORIDE 0.9% 100 ML IV PRN (17:00)
[2020-07-03] MEDS ORDERED: ALTEPLASE 2 MG VIAL INTRACATH ONE (17:00)
[2020-07-03] MEDS ORDERED: ACETAMINOPHEN 500 MG TABLET PO PRN (17:04)
[2020-07-03] MEDS ORDERED: traMADol 50 MG TABLET PO PRN (17:04)
[2020-07-03] MEDS: cilostazoL 100 MG TABLET PO SCH (20:36)
[2020-07-03] MEDS: ROSUVASTATIN 20 MG TABLET PO SCH (20:36)
[2020-07-03] MEDS: ENOXAPARIN 30 MG/0.3 ML SYRINGE SUBCUT SCH (20:37)
[2020-07-03] MEDS ORDERED: VANCOMYCIN INJ 500 MG in SODIUM CHLORIDE 0.9% 100 ML IV ONE (21:00)
[2020-07-04 03:56] LABS: Basophils % 0.1 % (0.0-0.8); Hematocrit 29.8 VOL% (42.0-52.0); Immature Granulocytes Absolute 0.25 #; Lymphocytes # 1.4 10*3/uL (1.4-4.0); Lymphocytes % 5.5 % (21.2-54.2); Mean Corpuscular HGB Conc 28.9 GM/DL (32-36); Mean Corpuscular Volume 85.1 FL (87-102); Mean Platelet Volume 10.1 FL (9.6-12.0); Monocytes % 3.4 % (1.7-12.7); NRBC # 0.07 10*3/uL; Red Cell Distribution Width 20.1 % (9.3-17.3); White Blood Count 24.4 T/CUMM (4-12)
[2020-07-04 03:58] LABS: Hemoglobin 8.6 GM/DL (14.0-18.0); Platelet Count 631 T/CUMM (130-400)
[2020-07-04 04:18] LABS: Calcium 11.2 MG/DL (8.5-10.1); Osmolality,Calculated 312.1 MOS/KG (273-304); Potassium 4.6 MMOL/L (3.5-5.1)
[2020-07-04 04:25] LABS: Hypochromasia 1+; Microcytosis 1+; Ovalocytes Slight; Platelet Estimate Increased
[2020-07-04] MEDS: HYDROCORTISONE 100 MG VIAL IV SCH ×3 (05:35→20:42)
[2020-07-04] MEDS: FAMOTIDINE 20 MG/2 ML VIAL IV SCH ×2 (05:36→17:16)
[2020-07-04] MEDS: VANCOMYCIN 50 MG/ML 60 ML/BOTTLE PO SCH ×4 (08:02→23:19)
[2020-07-04] MEDS: MIDODRINE 5 MG TABLET PO SCH ×2 (08:02→20:44)
[2020-07-04] MEDS: SEVELAMER CARBONATE 800 MG TABLET PO SCH ×3 (08:02→17:16)
[2020-07-04] MEDS: MULTIVITAMIN (CENTRUM) TABLET PO SCH (08:02)
[2020-07-04] MEDS: cilostazoL 100 MG TABLET PO SCH ×2 (08:02→20:43)
[2020-07-04] MEDS: ASCORBIC ACID 500 MG TABLET PO SCH (08:02)
[2020-07-04] MEDS ORDERED: SODIUM BICARBONATE 50 MEQ/50 ML VIAL IV ONE (11:10)
[2020-07-04] MEDS ORDERED: GLUCAGON 1 MG VIAL IM PRN (12:52)
[2020-07-04] MEDS ORDERED: DEXTROSE 50% 25 GM/50 ML VIAL IV PRN (12:52)
[2020-07-04] MEDS: INSULIN REGULAR 100 UNIT/ML SUBCUT SCH (17:45)
[2020-07-04] MEDS: ROSUVASTATIN 20 MG TABLET PO SCH (20:43)
[2020-07-04] MEDS: ENOXAPARIN 30 MG/0.3 ML SYRINGE SUBCUT SCH (20:43)
[2020-07-05] MEDS: INSULIN REGULAR 100 UNIT/ML SUBCUT SCH ×4 (00:49→17:58)
[2020-07-05] MEDS: HYDROCORTISONE 100 MG VIAL IV SCH ×3 (03:46→21:52)
[2020-07-05] MEDS: FAMOTIDINE 20 MG/2 ML VIAL IV SCH ×2 (05:27→17:57)
[2020-07-05 05:43] LABS: Basophils % 0.1 % (0.0-0.8); Hematocrit 31.3 VOL% (42.0-52.0); Hemoglobin 9.3 GM/DL (14.0-18.0); Immature Granulocytes % 0.9 %; Lymphocytes # 1.3 10*3/uL (1.4-4.0); Lymphocytes % 5.8 % (21.2-54.2); Mean Corpuscular HGB Conc 29.7 GM/DL (32-36); Mean Corpuscular Volume 83.2 FL (87-102); Mean Platelet Volume 10.3 FL (9.6-12.0); Monocytes % 4.2 % (1.7-12.7); NRBC # 0.03 10*3/uL; Platelet Count 650 T/CUMM (130-400); Red Blood Count 3.76 MC/CUMM (3.8-5.5); Red Cell Distribution Width 19.9 % (9.3-17.3); White Blood Count 22.2 T/CUMM (4-12)
[2020-07-05 06:00] LABS: Calcium 10.4 MG/DL (8.5-10.1); Osmolality,Calculated 318.1 MOS/KG (273-304); Potassium 3.6 MMOL/L (3.5-5.1)
[2020-07-05 06:09] LABS: Hypochromasia 1+; Lymphocytes 4 % (20-55); Microcytosis 1+; Nucleated Red Blood Cells 1 (0-5); Platelet Estimate Increased; Segmented Neutrophils 92 % (50-85); Total Cells Counted 100
[2020-07-05 06:10] LABS: Ovalocytes Slight
[2020-07-05] MEDS: SEVELAMER CARBONATE 800 MG TABLET PO SCH ×3 (08:27→17:57)
[2020-07-05] MEDS: MULTIVITAMIN (CENTRUM) TABLET PO SCH (08:27)
[2020-07-05] MEDS: cilostazoL 100 MG TABLET PO SCH ×2 (08:28→21:53)
[2020-07-05] MEDS: ASCORBIC ACID 500 MG TABLET PO SCH (08:28)
[2020-07-05] MEDS: MIDODRINE 5 MG TABLET PO SCH ×2 (08:28→21:53)
[2020-07-05] MEDS: VANCOMYCIN 50 MG/ML 60 ML/BOTTLE PO SCH ×4 (08:28→22:18)
[2020-07-05] MEDS: ROSUVASTATIN 20 MG TABLET PO SCH (21:53)
[2020-07-05] MEDS: ENOXAPARIN 30 MG/0.3 ML SYRINGE SUBCUT SCH (21:53)
[2020-07-06] MEDS: HYDROCORTISONE 100 MG VIAL IV SCH (02:46)
[2020-07-06] MEDS: INSULIN REGULAR 100 UNIT/ML SUBCUT SCH ×3 (02:50→12:54)
[2020-07-06] MEDS: FAMOTIDINE 20 MG/2 ML VIAL IV SCH ×2 (05:30→21:27)
[2020-07-06 06:34] LABS: Basophils % 0.1 % (0.0-0.8); Hematocrit 32.5 VOL% (42.0-52.0); Hemoglobin 9.6 GM/DL (14.0-18.0); Immature Granulocytes % 0.6 %; Lymphocytes # 1.5 10*3/uL (1.4-4.0); Lymphocytes % 8.5 % (21.2-54.2); Mean Corpuscular HGB Conc 29.5 GM/DL (32-36); Mean Corpuscular Volume 84.6 FL (87-102); Mean Platelet Volume 10.3 FL (9.6-12.0); Monocytes % 5.5 % (1.7-12.7); NRBC # 0.04 10*3/uL; Neutrophils % 85.3 % (38.7-73.9); Platelet Count 567 T/CUMM (130-400); Red Blood Count 3.84 MC/CUMM (3.8-5.5); Red Cell Distribution Width 19.9 % (9.3-17.3)
[2020-07-06 07:03] LABS: Calcium 9.8 MG/DL (8.5-10.1); Osmolality,Calculated 320.1 MOS/KG (273-304); Potassium 3.3 MMOL/L (3.5-5.1)
[2020-07-06 07:09] LABS: Anisocytosis 1+; Platelet Estimate Increased
[2020-07-06 07:10] LABS: Polychromasia Slight
[2020-07-06] MEDS ORDERED: LIDOCAINE 2% 5 ML VIAL ONE (09:08)
[2020-07-06] MEDS ORDERED: propofoL 200 MG/20 ML VIAL IV ONE (09:08)
[2020-07-06] MEDS ORDERED: fentaNYL 100 MCG/2 ML VIAL ONE (09:09)
[2020-07-06] MEDS ORDERED: LIDOCAINE 1%/EPI INJ 20 ML VIAL ONE (09:22)
[2020-07-06] MEDS ORDERED: HEPARIN 5,000 UNIT/1 ML VIAL ONE (09:22)
[2020-07-06] MEDS ORDERED: BUPIVACAINE MPF 0.25% 30 ML VIAL ONE (09:22)
[2020-07-06] MEDS ORDERED: SODIUM CHLORIDE 0.9% 250 ML IV SCH (09:30)
[2020-07-06] MEDS ORDERED: PHENYLEPHRINE 1 MG/10 ML SYRINGE IV ONE (10:06)
[2020-07-06] MEDS: SEVELAMER CARBONATE 800 MG TABLET PO SCH ×3 (11:32→18:59)
[2020-07-06] MEDS: cilostazoL 100 MG TABLET PO SCH ×2 (11:33→21:27)
[2020-07-06] MEDS: MIDODRINE 5 MG TABLET PO SCH ×2 (11:33→21:27)
[2020-07-06] MEDS: MULTIVITAMIN (CENTRUM) TABLET PO SCH (11:33)
[2020-07-06] MEDS: ASCORBIC ACID 500 MG TABLET PO SCH (11:33)
[2020-07-06] MEDS: VANCOMYCIN 50 MG/ML 60 ML/BOTTLE PO SCH ×4 (11:35→21:29)
[2020-07-06] MEDS: HYDROCORTISONE 10 MG TABLET PO SCH ×2 (11:35→21:27)
[2020-07-06] MEDS ORDERED: VANCOMYCIN INJ 500 MG in SODIUM CHLORIDE 0.9% 100 ML IV ONE (17:00)
[2020-07-06] MEDS ORDERED: HEPARIN 10,000 UNIT/10 ML VIAL IV SCH (17:00)
[2020-07-06] MEDS: ROSUVASTATIN 20 MG TABLET PO SCH (21:27)
[2020-07-07] MEDS: INSULIN REGULAR 100 UNIT/ML SUBCUT SCH ×5 (01:48→18:35)
[2020-07-07 05:42] LABS: Basophils % 0.1 % (0.0-0.8); Hematocrit 32.3 VOL% (42.0-52.0); Hemoglobin 9.8 GM/DL (14.0-18.0); Immature Granulocytes % 0.7 %; Immature Granulocytes Absolute 0.12 #; Lymphocytes # 1.3 10*3/uL (1.4-4.0); Lymphocytes % 7.2 % (21.2-54.2); Mean Corpuscular HGB Conc 30.3 GM/DL (32-36); Mean Corpuscular Volume 82.2 FL (87-102); Monocytes % 5.6 % (1.7-12.7); NRBC # 0.02 10*3/uL; Neutrophils % 86.4 % (38.7-73.9); Platelet Count 507 T/CUMM (130-400); Red Blood Count 3.93 MC/CUMM (3.8-5.5); Red Cell Distribution Width 19.9 % (9.3-17.3); White Blood Count 17.6 T/CUMM (4-12)
[2020-07-07 06:21] LABS: Calcium 9.6 MG/DL (8.5-10.1); Osmolality,Calculated 292.1 MOS/KG (273-304); Potassium 2.6 MMOL/L (3.5-5.1)
[2020-07-07 06:24] LABS: Albumin 1.8 G/DL (3.4-5.0); Bilirubin,Total 0.5 MG/DL (0.2-1.0); Calcium 9.7 MG/DL (8.5-10.1); Osmolality,Calculated 292.1 MOS/KG (273-304); Potassium 2.6 MMOL/L (3.5-5.1); Total Protein 7.1 G/DL (6.4-8.3)
[2020-07-07] MEDS: SEVELAMER CARBONATE 800 MG TABLET PO SCH ×3 (08:31→18:11)
[2020-07-07] MEDS: MIDODRINE 5 MG TABLET PO SCH ×2 (08:32→20:14)
[2020-07-07] MEDS: HYDROCORTISONE 10 MG TABLET PO SCH ×2 (08:32→20:14)
[2020-07-07] MEDS: VANCOMYCIN 50 MG/ML 60 ML/BOTTLE PO SCH ×4 (08:32→20:15)
[2020-07-07] MEDS: ASCORBIC ACID 500 MG TABLET PO SCH (08:32)
[2020-07-07] MEDS: cilostazoL 100 MG TABLET PO SCH ×2 (08:32→20:14)
[2020-07-07] MEDS: MULTIVITAMIN (CENTRUM) TABLET PO SCH (08:32)
[2020-07-07] MEDS: FAMOTIDINE 20 MG/2 ML VIAL IV SCH ×2 (08:40→20:17)
[2020-07-07] MEDS ORDERED: POTASSIUM CHLORIDE 20 MEQ/15 ML UDCUP PO ONE ×2 (09:00→13:00)
[2020-07-07] MEDS: ROSUVASTATIN 20 MG TABLET PO SCH (20:14)
[2020-07-08] MEDS: INSULIN REGULAR 100 UNIT/ML SUBCUT SCH ×4 (00:29→17:13)
[2020-07-08 05:55] LABS: Basophils % 0.1 % (0.0-0.8); Hematocrit 34.7 VOL% (42.0-52.0); Hemoglobin 10.5 GM/DL (14.0-18.0); Immature Granulocytes % 0.7 %; Immature Granulocytes Absolute 0.17 #; Lymphocytes # 1.5 10*3/uL (1.4-4.0); Lymphocytes % 6.6 % (21.2-54.2); Mean Corpuscular HGB Conc 30.3 GM/DL (32-36); Mean Corpuscular Volume 82.8 FL (87-102); Mean Platelet Volume 10.5 FL (9.6-12.0); Monocytes % 7.2 % (1.7-12.7); NRBC # 0.02 10*3/uL; Neutrophils % 85.4 % (38.7-73.9); Platelet Count 499 T/CUMM (130-400); Red Blood Count 4.19 MC/CUMM (3.8-5.5); Red Cell Distribution Width 20.5 % (9.3-17.3); White Blood Count 23.3 T/CUMM (4-12)
[2020-07-08 06:20] LABS: Platelet Estimate Adequate
[2020-07-08 06:23] LABS: Calcium 10.2 MG/DL (8.5-10.1); Osmolality,Calculated 292.4 MOS/KG (273-304)
[2020-07-08 06:25] LABS: Potassium 2.5 MMOL/L (3.5-5.1)
[2020-07-08 06:32] LABS: Calcium 10.4 MG/DL (8.5-10.1); Osmolality,Calculated 291.5 MOS/KG (273-304)
[2020-07-08] MEDS: POTASSIUM CHLORIDE 20 MEQ/15 ML UDCUP PER TUBE PRN ×3 (08:41→17:39)
[2020-07-08] MEDS: HYDROCORTISONE 10 MG TABLET PO SCH ×2 (08:41→21:21)
[2020-07-08] MEDS: MULTIVITAMIN (CENTRUM) TABLET PO SCH (08:41)
[2020-07-08] MEDS: VANCOMYCIN 50 MG/ML 60 ML/BOTTLE PO SCH ×4 (08:42→23:15)
[2020-07-08] MEDS: FAMOTIDINE 20 MG/2 ML VIAL IV SCH ×2 (08:42→21:20)
[2020-07-08] MEDS: cilostazoL 100 MG TABLET PO SCH ×2 (08:42→21:21)
[2020-07-08] MEDS: MIDODRINE 5 MG TABLET PO SCH ×2 (08:42→21:21)
[2020-07-08] MEDS: ASCORBIC ACID 500 MG TABLET PO SCH (08:42)
[2020-07-08] MEDS: SEVELAMER CARBONATE 800 MG TABLET PO SCH ×3 (08:42→17:39)
[2020-07-08] MEDS ORDERED: VANCOMYCIN INJ 500 MG in SODIUM CHLORIDE 0.9% 100 ML IV ONE (17:00)
[2020-07-08] MEDS: ROSUVASTATIN 20 MG TABLET PO SCH (21:21)
[2020-07-09] MEDS: INSULIN REGULAR 100 UNIT/ML SUBCUT SCH ×4 (01:07→17:15)
[2020-07-09 05:57] LABS: Calcium 9.8 MG/DL (8.5-10.1); Potassium 3.6 MMOL/L (3.5-5.1)
[2020-07-09 06:00] LABS: Calcium 9.9 MG/DL (8.5-10.1); Potassium 3.6 MMOL/L (3.5-5.1)
[2020-07-09 08:26] LABS: Potassium 2.5 MMOL/L (3.5-5.1)
[2020-07-09 08:31] LABS: Hemoglobin 10.8 GM/DL (14.0-18.0); Immature Granulocytes % 0.7 %; Immature Granulocytes Absolute 0.15 #; Lymphocytes # 0.9 10*3/uL (1.4-4.0); Lymphocytes % 4.2 % (21.2-54.2); Mean Corpuscular Volume 82.2 FL (87-102); Mean Platelet Volume 10.9 FL (9.6-12.0); Monocytes % 7.3 % (1.7-12.7); Neutrophils % 87.8 % (38.7-73.9); Platelet Count 440 T/CUMM (130-400); Red Blood Count 4.38 MC/CUMM (3.8-5.5); Red Cell Distribution Width 21.2 % (9.3-17.3); White Blood Count 22.1 T/CUMM (4-12)
[2020-07-09 08:52] LABS: Lymphocytes 5 % (20-55); Platelet Estimate Adequate; Segmented Neutrophils 88 % (50-85); Total Cells Counted 100
[2020-07-09 08:53] LABS: Hypochromasia Slight
[2020-07-09] MEDS: HYDROCORTISONE 10 MG TABLET PO SCH (09:02)
[2020-07-09] MEDS: cilostazoL 100 MG TABLET PO SCH ×2 (09:02→21:08)
[2020-07-09] MEDS: SEVELAMER CARBONATE 800 MG TABLET PO SCH ×3 (09:02→16:11)
[2020-07-09] MEDS: ASCORBIC ACID 500 MG TABLET PO SCH (09:03)
[2020-07-09] MEDS: FAMOTIDINE 20 MG/2 ML VIAL IV SCH ×2 (09:04→21:08)
[2020-07-09] MEDS: MULTIVITAMIN (CENTRUM) TABLET PO SCH (09:04)
[2020-07-09] MEDS: MIDODRINE 5 MG TABLET PO SCH ×2 (09:04→21:08)
[2020-07-09] MEDS: VANCOMYCIN 50 MG/ML 60 ML/BOTTLE PO SCH ×4 (09:05→21:09)
[2020-07-09] MEDS: ROSUVASTATIN 20 MG TABLET PO SCH (21:08)
[2020-07-10] MEDS: INSULIN REGULAR 100 UNIT/ML SUBCUT SCH ×4 (00:14→17:52)
[2020-07-10 06:14] LABS: Basophils # 0.1 10*3/uL (0.0-0.2); Basophils % 0.2 % (0.0-0.8); Hematocrit 37.2 VOL% (42.0-52.0); Hemoglobin 11.2 GM/DL (14.0-18.0); Immature Granulocytes Absolute 1.56 #; Lymphocytes # 0.6 10*3/uL (1.4-4.0); Lymphocytes % 1.4 % (21.2-54.2); Mean Corpuscular HGB Conc 30.1 GM/DL (32-36); Mean Corpuscular Volume 82.9 FL (87-102); Mean Platelet Volume 11.2 FL (9.6-12.0); Monocytes % 1.2 % (1.7-12.7); NRBC # 0.02 10*3/uL; Neutrophils % 93.2 % (38.7-73.9); Platelet Count 402 T/CUMM (130-400); Red Blood Count 4.49 MC/CUMM (3.8-5.5); Red Cell Distribution Width 21.2 % (9.3-17.3); White Blood Count 38.7 T/CUMM (4-12)
[2020-07-10 07:00] LABS: Lymphocytes 3 % (20-55); Segmented Neutrophils 97 % (50-85); Total Cells Counted 100
[2020-07-10 07:01] LABS: Anisocytosis 1+; Microcytosis 1+; Platelet Estimate Increased
[2020-07-10 07:03] LABS: Hypochromasia Slight
[2020-07-10 07:27] LABS: Calcium 9.9 MG/DL (8.5-10.1); Osmolality,Calculated 282.8 MOS/KG (273-304)
[2020-07-10] MEDS ORDERED: SODIUM CHLORIDE 0.9% 500 ML IV ONE ×3 (07:28→11:49)
[2020-07-10] MEDS ORDERED: DEXTROSE 5% 1,000 ML IV SCH (08:30)
[2020-07-10 09:00] LABS: ABG Base Excess -4.6 MMOL/L (-2.5-2.5); ABG HCO3 20.5 MMOL/L (20-26); ABG Oxygen Saturation 92.3 % (95-100); ABG PCO2 26.9 MM HG (35-48); ABG PH 7.441 (7.35-7.45); ABG PO2 65.1 MM HG (80-95); ABG TCO2 16.5 MMOL/L (23-27)
[2020-07-10] MEDS: DEXTROSE 5% 1,000 ML IV SCH ×2 (09:00→12:28)
[2020-07-10] MEDS: ASCORBIC ACID 500 MG TABLET PO SCH (09:53)
[2020-07-10] MEDS: MIDODRINE 5 MG TABLET PO SCH ×2 (09:53→21:26)
[2020-07-10] MEDS: MULTIVITAMIN (CENTRUM) TABLET PO SCH (09:53)
[2020-07-10] MEDS: VANCOMYCIN 50 MG/ML 60 ML/BOTTLE PO SCH ×4 (09:53→21:25)
[2020-07-10] MEDS: cilostazoL 100 MG TABLET PO SCH ×2 (09:53→21:26)
[2020-07-10] MEDS: HYDROCORTISONE 10 MG TABLET PO SCH (09:53)
[2020-07-10] MEDS: SEVELAMER CARBONATE 800 MG TABLET PO SCH ×3 (09:53→18:03)
[2020-07-10] MEDS: FAMOTIDINE 20 MG/2 ML VIAL IV SCH ×2 (10:30→21:25)
[2020-07-10 10:39] LABS: Urine Appearance Turbid (Clear); Urine Color Yellow (Yellow); Urine Specific Gravity 1.005 (1.001-1.035)
[2020-07-10 10:40] LABS: Bilirubin,Urine Negative (Negative); Blood, Urine 50 mg/dL (Negative); Glucose,Urine (UA) Negative (Negative); Ketones,Urine Negative (Negative); Nitrite,Urine Negative (Negative); Protein,Urine 100 MG/DL
[2020-07-10 10:41] LABS: RBC,Urine Rare /HPF (0-4); Squamous Epithelial Cell,Urine Occasional /HPF (0-10); Urine Urobilinogen 0.2 EU/DL (0.2-1.0); WBC,Urine TNTC /HPF (0-6)
[2020-07-10] MEDS ORDERED: PHENYLEPHRINE DRIP 40 MG/250 ML PREMIX IV PRN (11:50)
[2020-07-10] MEDS ORDERED: HYDROCORTISONE 100 MG VIAL IV ONE (11:51)
[2020-07-10] MEDS ORDERED: PHENYLEPHRINE DRIP 40 MG/250 ML PREMIX IV ONE (11:51)
[2020-07-10 12:23] LABS: Alanine Aminotransferase 14 U/L (16-61); Albumin 1.8 G/DL (3.4-5.0); Alkaline Phosphatase 100 U/L (45-117); Aspartate Amino Transferase 16 U/L (0-37); Blood Urea Nitrogen 41 MG/DL (7-18); Calcium 9.4 MG/DL (8.5-10.1); Carbon Dioxide 18 MMOL/L (21-32); Estimated Glom Filtration Rate 11 ML/MIN; Glucose 88 MG/DL (74-106); Osmolality,Calculated 285.5 MOS/KG (273-304); Potassium 3.8 MMOL/L (3.5-5.1); Sodium 139 MMOL/L (136-145); Total Protein 7.4 G/DL (6.4-8.3)
[2020-07-10] MEDS: cefTRIAXone 1,000 MG in SYRINGE 1 EACH IV SCH (14:24)
[2020-07-10 15:19] LABS: Basophils % 0.1 % (0.0-0.8); Hematocrit 36.3 VOL% (42.0-52.0); Hemoglobin 10.6 GM/DL (14.0-18.0); Immature Granulocytes % 1.1 %; Immature Granulocytes Absolute 0.34 #; Lymphocytes # 0.6 10*3/uL (1.4-4.0); Lymphocytes % 1.8 % (21.2-54.2); Mean Corpuscular HGB Conc 29.2 GM/DL (32-36); Mean Corpuscular Volume 85.2 FL (87-102); Mean Platelet Volume 11.1 FL (9.6-12.0); Monocytes % 1.1 % (1.7-12.7); Neutrophils % 95.9 % (38.7-73.9); Platelet Count 431 T/CUMM (130-400); Red Blood Count 4.26 MC/CUMM (3.8-5.5); Red Cell Distribution Width 21.1 % (9.3-17.3); White Blood Count 30.6 T/CUMM (4-12)
[2020-07-10 15:46] LABS: Band Neutrophils 5 % (0-10); Lymphocytes 4 % (20-55); Segmented Neutrophils 91 % (50-85); Total Cells Counted 100
[2020-07-10 15:47] LABS: Platelet Estimate Increased
[2020-07-10] MEDS ORDERED: METOPROLOL TARTRATE 5 MG/5 ML VIAL IV ONE (16:40)
[2020-07-10] MEDS: HYDROCORTISONE 100 MG VIAL IV SCH (18:04)
[2020-07-10] MEDS: ROSUVASTATIN 20 MG TABLET PO SCH (21:26)
[2020-07-11] MEDS: INSULIN REGULAR 100 UNIT/ML SUBCUT SCH ×4 (00:30→17:20)
[2020-07-11] MEDS: HYDROCORTISONE 100 MG VIAL IV SCH ×4 (00:45→17:26)
[2020-07-11 05:04] LABS: ABG Base Excess -3.1 MMOL/L (-2.5-2.5); ABG HCO3 19.7 MMOL/L (20-26); ABG PCO2 28.2 MM HG (35-48); ABG PH 7.462 (7.35-7.45); ABG PO2 104.6 MM HG (80-95); ABG TCO2 20.6 MMOL/L (23-27); Allen Test Positive
[2020-07-11 05:04] LABS: Basophils % 0.1 % (0.0-0.8); Hematocrit 34.1 VOL% (42.0-52.0); Hemoglobin 10.4 GM/DL (14.0-18.0); Immature Granulocytes % 0.5 %; Immature Granulocytes Absolute 0.14 #; Lymphocytes # 0.6 10*3/uL (1.4-4.0); Lymphocytes % 2.1 % (21.2-54.2); Mean Corpuscular HGB Conc 30.5 GM/DL (32-36); Mean Corpuscular Volume 81.8 FL (87-102); Mean Platelet Volume 10.8 FL (9.6-12.0); Monocytes % 3.8 % (1.7-12.7); Neutrophils % 93.5 % (38.7-73.9); Platelet Count 306 T/CUMM (130-400); Red Blood Count 4.17 MC/CUMM (3.8-5.5); Red Cell Distribution Width 20.3 % (9.3-17.3)
[2020-07-11] MEDS: DEXTROSE 5% 1,000 ML IV SCH ×2 (05:22→09:43)
[2020-07-11 05:33] LABS: Albumin 1.7 G/DL (3.4-5.0); Bilirubin,Total 0.4 MG/DL (0.2-1.0); Calcium 9.2 MG/DL (8.5-10.1); Osmolality,Calculated 275.2 MOS/KG (273-304); Potassium 3.4 MMOL/L (3.5-5.1)
[2020-07-11] MEDS: POTASSIUM CHLORIDE 20 MEQ/15 ML UDCUP PER TUBE PRN ×2 (05:56→08:19)
[2020-07-11 08:01] LABS: Lymphocytes 6 % (20-55); Segmented Neutrophils 94 % (50-85); Total Cells Counted 100
[2020-07-11 08:02] LABS: Anisocytosis 1+; Macrocytosis Slight; Microcytosis Slight
[2020-07-11 08:05] LABS: Platelet Estimate Adequate; Spherocytes Few; Tear Drop Cells Few
[2020-07-11] MEDS: MULTIVITAMIN (CENTRUM) TABLET PO SCH (08:14)
[2020-07-11] MEDS: SEVELAMER CARBONATE 800 MG TABLET PO SCH ×3 (08:14→16:45)
[2020-07-11] MEDS: ASCORBIC ACID 500 MG TABLET PO SCH (08:14)
[2020-07-11] MEDS: cilostazoL 100 MG TABLET PO SCH ×2 (08:14→21:10)
[2020-07-11] MEDS: FAMOTIDINE 20 MG/2 ML VIAL IV SCH ×2 (08:15→21:13)
[2020-07-11] MEDS: VANCOMYCIN 50 MG/ML 60 ML/BOTTLE PO SCH ×4 (08:15→21:20)
[2020-07-11] MEDS: MIDODRINE 5 MG TABLET PO SCH ×2 (08:19→21:10)
[2020-07-11] MEDS: HEPARIN 5,000 UNIT/1 ML VIAL SUBCUT SCH ×2 (09:18→21:15)
[2020-07-11] MEDS ORDERED: VANCOMYCIN INJ 500 MG in SODIUM CHLORIDE 0.9% 100 ML IV PRN (11:31)
[2020-07-11] MEDS: cefTRIAXone 1,000 MG in SYRINGE 1 EACH IV SCH (13:35)
[2020-07-11] MEDS: ROSUVASTATIN 20 MG TABLET PO SCH (21:10)
[2020-07-12] MEDS: HYDROCORTISONE 100 MG VIAL IV SCH ×4 (00:19→18:13)
[2020-07-12 05:56] LABS: Basophils # 0.1 10*3/uL (0.0-0.2); Basophils % 0.2 % (0.0-0.8); Hematocrit 32.6 VOL% (42.0-52.0); Hemoglobin 9.9 GM/DL (14.0-18.0); Immature Granulocytes % 0.8 %; Immature Granulocytes Absolute 0.21 #; Lymphocytes # 0.7 10*3/uL (1.4-4.0); Lymphocytes % 2.6 % (21.2-54.2); Mean Corpuscular HGB Conc 30.4 GM/DL (32-36); Mean Corpuscular Volume 81.3 FL (87-102); Mean Platelet Volume 10.6 FL (9.6-12.0); Monocytes % 4.9 % (1.7-12.7); Neutrophils % 91.5 % (38.7-73.9); Platelet Count 380 T/CUMM (130-400); Red Blood Count 4.01 MC/CUMM (3.8-5.5); Red Cell Distribution Width 19.7 % (9.3-17.3); White Blood Count 26.3 T/CUMM (4-12)
[2020-07-12 06:17] LABS: Calcium 9.2 MG/DL (8.5-10.1); Osmolality,Calculated 277.2 MOS/KG (273-304); Potassium 3.3 MMOL/L (3.5-5.1)
[2020-07-12 07:01] LABS: Platelet Estimate Normal
[2020-07-12 07:02] LABS: Anisocytosis 2+; Hypochromasia 1+; Macrocytosis 1+; Target Cells 1+
[2020-07-12] MEDS: INSULIN REGULAR 100 UNIT/ML SUBCUT SCH ×4 (08:28→22:03)
[2020-07-12] MEDS: SEVELAMER CARBONATE 800 MG TABLET PO SCH ×3 (09:13→18:14)
[2020-07-12] MEDS: MIDODRINE 5 MG TABLET PO SCH ×2 (09:14→22:06)
[2020-07-12] MEDS: HEPARIN 5,000 UNIT/1 ML VIAL SUBCUT SCH ×2 (09:14→22:05)
[2020-07-12] MEDS: FAMOTIDINE 20 MG/2 ML VIAL IV SCH ×2 (09:14→22:05)
[2020-07-12] MEDS: ASCORBIC ACID 500 MG TABLET PO SCH (09:15)
[2020-07-12] MEDS: MULTIVITAMIN (CENTRUM) TABLET PO SCH (09:15)
[2020-07-12] MEDS: cilostazoL 100 MG TABLET PO SCH ×2 (09:15→22:06)
[2020-07-12] MEDS: VANCOMYCIN 50 MG/ML 60 ML/BOTTLE PO SCH ×4 (10:44→22:05)
[2020-07-12] MEDS: cefTRIAXone 1,000 MG in SYRINGE 1 EACH IV SCH (14:54)
[2020-07-12] MEDS: POTASSIUM CHLORIDE 20 MEQ/15 ML UDCUP PER TUBE PRN ×3 (14:54→22:06)
[2020-07-12] MEDS: ROSUVASTATIN 20 MG TABLET PO SCH (22:06)
[2020-07-13] MEDS: HYDROCORTISONE 100 MG VIAL IV SCH ×4 (00:47→18:51)
[2020-07-13 07:17] LABS: Calcium 9.1 MG/DL (8.5-10.1); Osmolality,Calculated 282.1 MOS/KG (273-304); Potassium 3.5 MMOL/L (3.5-5.1)
[2020-07-13 08:06] LABS: Basophils # 0.1 10*3/uL (0.0-0.2); Basophils % 0.2 % (0.0-0.8); Eosinophils % 0.1 % (0.00-10.9); Hematocrit 33.5 VOL% (42.0-52.0); Hemoglobin 10.4 GM/DL (14.0-18.0); Immature Granulocytes % 0.6 %; Immature Granulocytes Absolute 0.16 #; Lymphocytes # 0.7 10*3/uL (1.4-4.0); Lymphocytes % 2.3 % (21.2-54.2); Mean Platelet Volume 11.3 FL (9.6-12.0); Monocytes % 3.4 % (1.7-12.7); Neutrophils % 93.4 % (38.7-73.9); Platelet Count 435 T/CUMM (130-400); Red Blood Count 4.19 MC/CUMM (3.8-5.5); Red Cell Distribution Width 19.3 % (9.3-17.3); White Blood Count 28.6 T/CUMM (4-12)
[2020-07-13 08:46] LABS: Hypochromasia Slight; Lymphocytes 3 % (20-55); Microcytosis Slight; Platelet Estimate Adequate; Segmented Neutrophils 96 % (50-85); Total Cells Counted 100
[2020-07-13] MEDS ORDERED: HYDROCORTISONE 10 MG TABLET PO SCH (09:00)
[2020-07-13] MEDS: HEPARIN 5,000 UNIT/1 ML VIAL SUBCUT SCH ×2 (12:01→21:05)
[2020-07-13] MEDS: FAMOTIDINE 20 MG/2 ML VIAL IV SCH ×2 (12:01→21:05)
[2020-07-13] MEDS: MULTIVITAMIN (CENTRUM) TABLET PO SCH (12:01)
[2020-07-13] MEDS: SEVELAMER CARBONATE 800 MG TABLET PO SCH ×3 (12:01→18:51)
[2020-07-13] MEDS: MIDODRINE 5 MG TABLET PO SCH ×2 (12:03→21:05)
[2020-07-13] MEDS: VANCOMYCIN 50 MG/ML 60 ML/BOTTLE PO SCH ×4 (12:03→21:05)
[2020-07-13] MEDS: ASCORBIC ACID 500 MG TABLET PO SCH (12:03)
[2020-07-13] MEDS: cilostazoL 100 MG TABLET PO SCH ×2 (12:03→21:05)
[2020-07-13] MEDS: INSULIN REGULAR 100 UNIT/ML SUBCUT SCH ×3 (12:49→21:47)
[2020-07-13] MEDS: cefTRIAXone 1,000 MG in SYRINGE 1 EACH IV SCH (14:43)
[2020-07-13] MEDS ORDERED: VANCOMYCIN INJ 500 MG in SODIUM CHLORIDE 0.9% 100 ML IV ONE (17:00)
[2020-07-13] MEDS: AMIKACIN IV SCH (19:00)
[2020-07-13] MEDS: SODIUM CHLORIDE 0.9% IV SCH (19:00)
[2020-07-13] MEDS: ROSUVASTATIN 20 MG TABLET PO SCH (21:05)
[2020-07-14] MEDS: HYDROCORTISONE 100 MG VIAL IV SCH ×4 (00:08→18:01)
[2020-07-14] MEDS: cilostazoL 100 MG TABLET PO SCH ×3 (06:04→21:50)
[2020-07-14] MEDS: ROSUVASTATIN 20 MG TABLET PO SCH ×2 (06:05→21:50)
[2020-07-14] MEDS: MIDODRINE 5 MG TABLET PO SCH ×3 (06:05→21:50)
[2020-07-14] MEDS: SEVELAMER CARBONATE 800 MG TABLET PO SCH ×3 (08:47→18:22)
[2020-07-14] MEDS: MULTIVITAMIN (CENTRUM) TABLET PO SCH (08:47)
[2020-07-14] MEDS: INSULIN REGULAR 100 UNIT/ML SUBCUT SCH ×4 (08:47→21:50)
[2020-07-14] MEDS: FAMOTIDINE 20 MG/2 ML VIAL IV SCH ×2 (10:32→21:50)
[2020-07-14] MEDS: HEPARIN 5,000 UNIT/1 ML VIAL SUBCUT SCH ×2 (10:33→21:50)
[2020-07-14] MEDS: ASCORBIC ACID 500 MG TABLET PO SCH (10:38)
[2020-07-15] MEDS: HYDROCORTISONE 100 MG VIAL IV SCH ×4 (00:40→23:50)
[2020-07-15] MEDS: INSULIN REGULAR 100 UNIT/ML SUBCUT SCH ×4 (11:24→21:02)
[2020-07-15] MEDS: SEVELAMER CARBONATE 800 MG TABLET PO SCH ×3 (13:35→16:48)
[2020-07-15] MEDS: MIDODRINE 5 MG TABLET PO SCH ×2 (13:41→21:17)
[2020-07-15] MEDS: HEPARIN 5,000 UNIT/1 ML VIAL SUBCUT SCH ×2 (13:42→21:21)
[2020-07-15] MEDS: cilostazoL 100 MG TABLET PO SCH ×2 (13:42→21:18)
[2020-07-15] MEDS: MULTIVITAMIN (CENTRUM) TABLET PO SCH (13:42)
[2020-07-15] MEDS: ASCORBIC ACID 500 MG TABLET PO SCH (13:42)
[2020-07-15] MEDS: FAMOTIDINE 20 MG/2 ML VIAL IV SCH ×2 (13:43→21:19)
[2020-07-15] MEDS: SODIUM CHLORIDE 0.9% IV SCH (18:09)
[2020-07-15] MEDS: AMIKACIN IV SCH (18:09)
[2020-07-15] MEDS: ROSUVASTATIN 20 MG TABLET PO SCH (21:18)
[2020-07-16 06:09] LABS: Basophils % 0.1 % (0.0-0.8); Hematocrit 33.4 VOL% (42.0-52.0); Hemoglobin 10.1 GM/DL (14.0-18.0); Immature Granulocytes % 0.5 %; Immature Granulocytes Absolute 0.11 #; Lymphocytes # 0.8 10*3/uL (1.4-4.0); Lymphocytes % 3.4 % (21.2-54.2); Mean Corpuscular HGB Conc 30.2 GM/DL (32-36); Mean Corpuscular Volume 82.5 FL (87-102); Mean Platelet Volume 11.2 FL (9.6-12.0); Monocytes % 4.2 % (1.7-12.7); Neutrophils % 91.8 % (38.7-73.9); Platelet Count 305 T/CUMM (130-400); Red Blood Count 4.05 MC/CUMM (3.8-5.5); Red Cell Distribution Width 19.5 % (9.3-17.3); White Blood Count 22.2 T/CUMM (4-12)
[2020-07-16 06:10] LABS: Calcium 8.7 MG/DL (8.5-10.1); Osmolality,Calculated 277.8 MOS/KG (273-304); Potassium 2.7 MMOL/L (3.5-5.1)
[2020-07-16 07:03] LABS: Anisocytosis 2+; Hypersegmented Neutrophil 1+; Lymphocytes 11 % (20-55); Platelet Estimate Normal; Segmented Neutrophils 89 % (50-85); Total Cells Counted 100
[2020-07-16 07:04] LABS: Macrocytosis 1+; Target Cells Few
[2020-07-16] MEDS: MULTIVITAMIN (CENTRUM) TABLET PO SCH (08:48)
[2020-07-16] MEDS: SEVELAMER CARBONATE 800 MG TABLET PO SCH ×3 (08:48→17:16)
[2020-07-16] MEDS: ASCORBIC ACID 500 MG TABLET PO SCH (08:48)
[2020-07-16] MEDS: cilostazoL 100 MG TABLET PO SCH ×2 (08:48→22:02)
[2020-07-16] MEDS: MIDODRINE 5 MG TABLET PO SCH ×2 (08:49→22:02)
[2020-07-16] MEDS: FAMOTIDINE 20 MG/2 ML VIAL IV SCH ×2 (08:52→22:03)
[2020-07-16] MEDS: HEPARIN 5,000 UNIT/1 ML VIAL SUBCUT SCH ×2 (08:52→22:08)
[2020-07-16] MEDS: INSULIN REGULAR 100 UNIT/ML SUBCUT SCH ×4 (08:53→22:05)
[2020-07-16] MEDS: HYDROCORTISONE 100 MG VIAL IV SCH (14:59)
[2020-07-16] MEDS: POTASSIUM CHLORIDE 20 MEQ/15 ML UDCUP PER TUBE PRN (22:02)
[2020-07-16] MEDS: ROSUVASTATIN 20 MG TABLET PO SCH (22:03)
[2020-07-17] MEDS: POTASSIUM CHLORIDE 20 MEQ/15 ML UDCUP PER TUBE PRN ×3 (00:03→04:50)
[2020-07-17] MEDS: HYDROCORTISONE 100 MG VIAL IV SCH ×4 (00:03→23:07)
[2020-07-17] MEDS: INSULIN REGULAR 100 UNIT/ML SUBCUT SCH ×4 (07:56→20:05)
[2020-07-17] MEDS: HEPARIN 5,000 UNIT/1 ML VIAL SUBCUT SCH ×2 (09:20→20:03)
[2020-07-17] MEDS: cilostazoL 100 MG TABLET PO SCH ×2 (09:20→20:02)
[2020-07-17] MEDS: MIDODRINE 5 MG TABLET PO SCH ×2 (09:20→20:02)
[2020-07-17] MEDS: ASCORBIC ACID 500 MG TABLET PO SCH (09:20)
[2020-07-17] MEDS: FAMOTIDINE 20 MG/2 ML VIAL IV SCH ×2 (09:20→20:00)
[2020-07-17] MEDS: SEVELAMER CARBONATE 800 MG TABLET PO SCH ×3 (09:20→16:07)
[2020-07-17] MEDS: MULTIVITAMIN (CENTRUM) TABLET PO SCH (09:20)
[2020-07-17] MEDS: AMIKACIN IV SCH (16:07)
[2020-07-17] MEDS: SODIUM CHLORIDE 0.9% IV SCH (16:07)
[2020-07-17] MEDS: ROSUVASTATIN 20 MG TABLET PO SCH (20:02)
[2020-07-18] MEDS: INSULIN REGULAR 100 UNIT/ML SUBCUT SCH ×4 (07:35→21:52)
[2020-07-18] MEDS: SEVELAMER CARBONATE 800 MG TABLET PO SCH ×3 (08:27→18:01)
[2020-07-18] MEDS: cilostazoL 100 MG TABLET PO SCH (08:27)
[2020-07-18] MEDS: ASCORBIC ACID 500 MG TABLET PO SCH (08:27)
[2020-07-18] MEDS: FAMOTIDINE 20 MG/2 ML VIAL IV SCH ×2 (08:27→21:15)
[2020-07-18] MEDS: MIDODRINE 5 MG TABLET PO SCH ×2 (08:27→21:15)
[2020-07-18] MEDS: HEPARIN 5,000 UNIT/1 ML VIAL SUBCUT SCH ×2 (08:27→21:15)
[2020-07-18] MEDS: MULTIVITAMIN (CENTRUM) TABLET PO SCH (08:27)
[2020-07-18] MEDS: HYDROCORTISONE 100 MG VIAL IV SCH ×3 (08:28→21:13)
[2020-07-18] MEDS: ROSUVASTATIN 20 MG TABLET PO SCH (21:15)
[2020-07-19] MEDS: HYDROCORTISONE 100 MG VIAL IV SCH ×2 (02:40→12:01)
[2020-07-19] MEDS: cilostazoL 100 MG TABLET PO SCH ×3 (02:40→21:56)
[2020-07-19] MEDS: MULTIVITAMIN (CENTRUM) TABLET PO SCH (08:21)
[2020-07-19] MEDS: INSULIN REGULAR 100 UNIT/ML SUBCUT SCH ×4 (08:21→21:56)
[2020-07-19] MEDS: SEVELAMER CARBONATE 800 MG TABLET PO SCH ×3 (08:21→17:20)
[2020-07-19] MEDS: FAMOTIDINE 20 MG/2 ML VIAL IV SCH ×2 (08:21→21:56)
[2020-07-19] MEDS: ASCORBIC ACID 500 MG TABLET PO SCH (08:21)
[2020-07-19] MEDS: HEPARIN 5,000 UNIT/1 ML VIAL SUBCUT SCH ×2 (08:21→21:56)
[2020-07-19] MEDS: MIDODRINE 5 MG TABLET PO SCH ×2 (08:21→21:56)
[2020-07-19] MEDS: ROSUVASTATIN 20 MG TABLET PO SCH (21:56)
[2020-07-20] MEDS: HYDROCORTISONE 100 MG VIAL IV SCH (00:30)
[2020-07-20 06:39] LABS: Basophils % 0.1 % (0.0-0.8); Hemoglobin 9.9 GM/DL (14.0-18.0); Immature Granulocytes % 0.5 %; Immature Granulocytes Absolute 0.09 #; Lymphocytes # 0.6 10*3/uL (1.4-4.0); Lymphocytes % 3.6 % (21.2-54.2); Mean Corpuscular HGB Conc 30.9 GM/DL (32-36); Mean Corpuscular Volume 80.8 FL (87-102); Mean Platelet Volume 10.8 FL (9.6-12.0); Monocytes % 4.4 % (1.7-12.7); Neutrophils % 91.4 % (38.7-73.9); Platelet Count 299 T/CUMM (130-400); Red Blood Count 3.96 MC/CUMM (3.8-5.5); Red Cell Distribution Width 18.1 % (9.3-17.3); White Blood Count 16.4 T/CUMM (4-12)
[2020-07-20 06:52] LABS: Calcium 10.1 MG/DL (8.5-10.1); Osmolality,Calculated 272.7 MOS/KG (273-304); Potassium 2.9 MMOL/L (3.5-5.1)
[2020-07-20 07:42] LABS: Anisocytosis 2+; Band Neutrophils 3 % (0-10); Lymphocytes 4 % (20-55); Macrocytosis Slight; Platelet Estimate Normal; Segmented Neutrophils 84 % (50-85); Target Cells Few; Total Cells Counted 100
[2020-07-20] MEDS: cilostazoL 100 MG TABLET PO SCH (08:45)
[2020-07-20] MEDS: HEPARIN 5,000 UNIT/1 ML VIAL SUBCUT SCH (08:45)
[2020-07-20] MEDS: MIDODRINE 5 MG TABLET PO SCH (08:45)
[2020-07-20] MEDS: ASCORBIC ACID 500 MG TABLET PO SCH (08:45)
[2020-07-20] MEDS: FAMOTIDINE 20 MG/2 ML VIAL IV SCH (08:45)
[2020-07-20] MEDS: MULTIVITAMIN (CENTRUM) TABLET PO SCH (08:45)
[2020-07-20] MEDS: SEVELAMER CARBONATE 800 MG TABLET PO SCH ×2 (08:45→11:30)
[2020-07-20] MEDS: INSULIN REGULAR 100 UNIT/ML SUBCUT SCH ×3 (08:55→16:06)
[2020-07-20] MEDS ORDERED: HYDROCORTISONE 100 MG VIAL IV SCH (10:00)
[2020-07-20] MEDS ORDERED: SODIUM CHLORIDE 0.9% IV PRN (10:34)
[2020-07-20] MEDS ORDERED: AMIKACIN IV PRN (10:34)
[2020-07-20 16:26] VITALS: BP 93/57
== END 2020-07-20 16:45 | disposition swing bed (61) | DRG 871 ==
LOC: EDUNIT# → EDBD → N.ED 15:02 → N.EDINP 17:25 → SUATTDRO 17:25 → N.CC 07-03 09:30 → N.5E 07-04 13:55 → N.CC 07-10 10:53 → N.TELEN 07-11 16:44
PROVIDERS: ADMIT Internal Medicine; ATTEND Internal Medicine